=== PATIENT | female | born 1950 | race Caucasian/White ===

== ENCOUNTER 2019-05-19 07:35 | Outpatient (CLI) | payer MEDICARE, SELFPAY ==
[2019-05-19 08:11] LABS: Basophils Absolute Auto 0.1 K/mm3 (0.0-0.1); Basophils Percent Auto 0.7 % (0.2-1.2); Eosinophils Absolute Auto 0.3 K/mm3 (0-0.3); Eosinophils Percent Auto 3.8 % (0-4.4); Hematocrit 44.5 % (37.0-47.0); Immature Granulocyte Absolute 0.02 K/mm3 (0.00-0.031); Immature Granulocyte Percent A 0.2 % (0-0.5); Lymphocytes Percent Auto 17.1 % (18.3-44.2); Mean Corpuscular HGB Conc 31.5 g/dl (32-36); Mean Corpuscular Hemoglobin 26.8 pg (26-34); Mean Corpuscular Volume 85.2 fl (80-100); Mean Platelet Volume 9.8 fl (7.4-10.4); Monocytes Absolute Auto 0.5 K/mm3 (0.1-0.6); Monocytes Percent Auto 5.4 % (2.6-8.5); Neutrophils Absolute Auto 6.4 K/mm3 (1.3-6.7); Neutrophils Percent Auto 72.8 % (45.5-73.1); Platelet Count Result 212 k/mm3 (150-375); Red Blood Count 5.22 M/mm3 (4.2-5.4); White Blood Count 8.8 K/mm3 (4.5-10.0)
[2019-05-19 08:24] LABS: Alanine Aminotransferase 18 U/L (4-35); Albumin Level 4.5 g/dL (3.5-5.1); Alkaline Phosphatase 73 U/L (38-126); Aspartate Amino Transferase 25 U/L (14-36); Bilirubin,Total 0.7 mg/dL (0.2-1.3); Blood Urea Nitrogen 26 mg/dL (7-17); Calcium 9.4 mg/dL (8.4-10.2); Carbon Dioxide 28 mmol/L (22-30); Chloride 105 mmol/L (98-107); Cholesterol 156 mg/dL (0-200); Estimated Glomerular Filt Rate > 60; Glucose 89 mg/dL (65-105); HDL Direct 40 mg/dL; Potassium 5.3 mmol/L (3.4-5.0); Sodium 138 mmol/L (137-145); Triglycerides 81 mg/dL (<150)
[2019-05-19 08:35] LABS: LDL Cholesterol Direct 98 mg/dL
== END 2019-05-19 07:36 | disposition home or self-care (01) ==
LOC: ANHLAB 07:37
PROVIDERS: PCP Family Medicine; Visit Provider Nurse Practitioner Family
DX: E78.5 Hyperlipidemia, unspecified (principal); I10 Essential (primary) hypertension; E11.9 Type 2 diabetes mellitus without complications
CPT/HCPCS: 36415; 80053; 80061; 83036; 85025

== ENCOUNTER 2019-08-30 17:48 | Inpatient (IN) | payer MEDICARE, SELFPAY ==
[2019-08-30] VITALS (8 sets, daily range): BP systolic 95–112; BP diastolic 56–72; PULSE 120–152; RESP 18–27; TEMP 35.8–36.7; O2SAT 98–99; BMI 31.1
--- NOTE | ~2019-08-30 | CT_ITS ---
EXAMINATION: CT abdomen pelvis wo con DATE: 08/30/2019 18:35 INDICATION: Abdominal pain TECHNIQUE: Computed tomography (CT) of the abdomen and pelvis was performed without intravenous contr ast. Automated exposure control and iterative reconstruction technique were employed. The dose-length product was 1084.69 mGy-cm. COMPARISON: 07/06/2015 FINDINGS: Mild discoid atelectasis in the lingula and right middle and lower lobes. Heart size is normal. Ather osclerotic coronary artery calcifications. Aortic valve calcification. No pericardial or pleural effu johana. Cholecystectomy clips the gallbladder fossa. Liver and spleen are normal. There is haziness to the peripancreatic fat consistent with acute interstitial pancreatitis. 2.4 cm and 1.4 cm macroscopic fat attenuation myelolipoma is at the right adrenal gland. 1.9 cm low-attenuation left adrenal adeno ma. Large right renal staghorn calculus filling the renal pelvis and extending into a couple lower po le lucencies, one of which demonstrates mild caliectasis. There are a couple additional smaller stagh orn calculi within additional calyces at the mid and upper pole. 2.1 cm low-attenuation right renal c yst. 2.0 cm exophytic lesion at the lower pole of the right kidney measuring 25HU statistically most likely a complex proteinaceous cyst. There is mild colonic diverticulosis with a sigmoid predominance . There is no adjacent inflammatory change to suggest diverticulitis. Small gas-filled duodenal dive rticulum which appears to arise from near the junction of the second and third portions of duodenum. Small bowel is otherwise normal. Appendix is normal. Bladder, anteverted uterus and right adnexa are unremarkable. 7 mm left adnexal cyst. No free intraperitoneal gas or fluid. No pathologically enlarge d abdominal or pelvic lymphadenopathy. Moderate to severe lower lumbar predominant facet osteoarthrit is. There are bridging osteophytes at multiple levels in the lower thoracic spine, consistent with di ffuse idiopathic skeletal hyperostosis (DISH). IMPRESSION: 1. Radiographically uncomplicated acute interstitial pancreatitis. 2. 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 3. 2.0 cm exophytic lesion at the lower pole of the left kidney with slightly greater than simple flu id attenuation most likely proteinaceous/hemorrhagic cyst. Differential would include less likely tray id neoplasm and would recommend follow-up pre and postcontrast MRI or CT. Could also consider ultraso und although it would be a greater likelihood of nondiagnostic evaluation. 4. Diverticulosis. Reviewed, dictated and finalized at location A. IMPRESSION: 1. Radiographically uncomplicated acute interstitial pancreatitis. 2. Staghorn calculi in the right kidney with mild caliectasis and one of the lo wer pole calyces. 3. 2.0 cm exophytic lesion at the lower pole of the left kidney with slightly g reater than simple fluid attenuation most likely proteinaceous/hemorrhagic cyst . Differential would include less likely solid neoplasm and would recommend fol low-up pre and postcontrast MRI or CT. Could also consider ultrasound although it would be a greater likelihood of nondiagnostic evaluation. 4. Diverticulosis.
--- NOTE | ~2019-08-30 | MR_ITS ---
EXAMINATION: MR MRCP wo con/w 3D wo ind pp DATE: 08/31/2019 13:50 INDICATION: Pancreatitis. TECHNIQUE: Magnetic resonance imaging (MRI) of the abdomen was performed without intravenous contrast . Sequences included coronal T2-weighted FS FSE, coronal T2-weighted FSE, axial T1-weighted LAVA, cor onal FS FIESTA, axial dual-echo T1-weighted SPGR, coronal lava-FLEX, sagittal T2-weighted FSE, axial T2-weighted FSE, and axial DWI. Thick-slab T2-weighted FSE images were obtained for magnetic resonanc e cholangiopancreatography (MRCP). Maximum intensity projection 3-D reconstructions of the volumetric data were created by the technologist. COMPARISON: CT abdomen and pelvis 08/30/2019, 07/06/2015 FINDINGS: ABDOMEN MRI: There are small pleural effusions, left worse than right. The liver and spleen are jalen l. There are changes of cholecystectomy. There is edema around the pancreas, consistent with acute in terstitial pancreatitis. The right adrenal gland is normal. There is a 2.0 cm mass with microscopic f at in the left adrenal gland, consistent with an adenoma. There are cysts in the kidneys measuring up to 2.1 cm on the right. There is a staghorn calculus in right kidney with mild right hydronephrosis. There are no dilated loops of bowel. There are no pathologically enlarged lymph nodes. There is no f ree intraperitoneal fluid. There is a hemangioma in T12 vertebral body. ABDOMEN MRCP: The common duct is normal and measures 4 mm. No choledocholithiasis. There is a diverti culum of the second portion of the duodenum. IMPRESSION: 1. No choledocholithiasis. 2. Acute interstitial pancreatitis. 3. Staghorn calculus in right kidney with mild right hydronephrosis. 4. Small pleural effusions. Reviewed, dictated and finalized at location A.
--- NOTE | ~2019-08-30 | NM_ITS ---
EXAMINATION: NM pulmonary perfusion DATE: 08/30/2019 22:23 INDICATION: Chest pain and shortness of breath TECHNIQUE: 5.21 mCi Tc-99m MAA by intravenous route. Scintigraphic images of the chest were obtained . COMPARISON: Chest radiograph dated 08/30/2019 FINDINGS: There is relatively homogeneous perfusion throughout the lungs. No discrete ventilation and perfusio n mismatch is identified. IMPRESSION: 1. Normal pulmonary perfusion scan. Reviewed, dictated and finalized at location A.
--- NOTE | ~2019-08-30 | XR_ITS ---
EXAMINATION: XR chest 1V portable DATE: 08/30/2019 18:53 INDICATION: Hypertension. Abdominal pain. TECHNIQUE: frontal view of the chest was obtained. COMPARISON: CT abdomen and pelvis dated 08/30/2019 FINDINGS: Mild linear atelectasis/scarring at the lingula. No other airspace opacities, pulmonary edema, pleura l effusion or pneumothorax. The cardiomediastinal silhouette is normal. Visualized bones and soft tis sues are unremarkable. IMPRESSION: 1. Mild lingular atelectasis. No other acute cardiopulmonary disease. Reviewed, dictated and finalized at location A.
--- NOTE | ~2019-08-30 | US_ITS ---
EXAMINATION: US venous doppler [facility] DATE: 08/31/2019 17:27 INDICATION: Elevated d-dimer. Chest pain and shortness of breath. TECHNIQUE: Grayscale ultrasound images without and with compression and Doppler ultrasound images of the bilateral lower extremity veins were obtained. COMPARISON: None. FINDINGS: The visualized portions of right common femoral vein, profunda (deep) femoral vein, femoral vein, pop liteal vein, posterior tibial veins, peroneal veins, gastrocnemius vein and greater saphenous vein ou tflow are patent. Davis cyst at the right popliteal fossa measuring 5.8 x 0.9 x 1.9 cm. The visualized portions of left common femoral vein, profunda femoral vein, femoral vein, popliteal v ein, posterior tibial veins, peroneal veins, gastrocnemius vein and greater saphenous vein outflow ar e patent. Noncompressible thrombosis in the left soleus vein. IMPRESSION: 1. Noncompressible deep venous thrombosis below the left knee in the left soleus vein. 2. No deep venous thrombosis in the right lower limb. 3. Moderate-sized right Davis's cyst. Reviewed, dictated and finalized at location A. IMPRESSION: 1. Noncompressible deep venous thrombosis below the left knee in the left sole us vein. 2. No deep venous thrombosis in the right lower limb. 3. Moderate-sized right Davis's cyst.
--- NOTE | 2019-08-30 17:57 | ECG_ITS ---
Measurements Intervals [place] Rate: 152 P: MT: 0 QRS: -37 QRSD: 115 T: 143 QT: 325 QTc: 517 Interpretive Statements ATRIAL FLUTTER/TACHYCARDIA WITH RAPID VENTRICULAR RESPONSE LEFT AXIS DEVIATION INCOMPLETE RIGHT BUNDLE BRANCH BLOCK POOR R WAVE PROGRESSION, ANTERIOR LEADS BORDERLINE ST-T WAVE ABNORMALITY- LATERAL LEADS ABNORMAL ECG Electronically Signed On 08-31-2019 6:49:20 CDT by Abdias Colon D.O.
[2019-08-30] MEDS: SODIUM CHLORIDE 0.9% IV 1,000 ML 999 ML IV CONT ×2 (18:20→18:49)
[2019-08-30] MEDS: PANTOPRAZOLE SODIUM IV 40 MG VIAL IV PUSH (18:22)
[2019-08-30 18:47] LABS: Basophils Absolute Auto 0.1 K/mm3 (0.0-0.1); Basophils Percent Auto 0.2 % (0.2-1.2); Eosinophils Absolute Auto 0.3 K/mm3 (0-0.3); Eosinophils Percent Auto 1.4 % (0-4.4); Hematocrit 44.6 % (37.0-47.0); Hemoglobin 14.7 g/dL (12.0-15.0); Immature Granulocyte Absolute 0.16 K/mm3 (0.00-0.031); Immature Granulocyte Percent A 0.7 % (0-0.5); Lymphocytes Percent Auto 3.9 % (18.3-44.2); Mean Corpuscular Hemoglobin 27.3 pg (26-34); Mean Corpuscular Volume 82.7 fl (80-100); Mean Platelet Volume 10.7 fl (7.4-10.4); Monocytes Absolute Auto 1.2 K/mm3 (0.1-0.6); Monocytes Percent Auto 5.2 % (2.6-8.5); Neutrophils Absolute Auto 20.3 K/mm3 (1.3-6.7); Neutrophils Percent Auto 88.6 % (45.5-73.1); Platelet Count Result 271 k/mm3 (150-375); Red Blood Count 5.39 M/mm3 (4.2-5.4); Red Cell Distribution Width 15.9 % (11.5-14.5); White Blood Count 22.9 K/mm3 (4.5-10.0)
--- NOTE | 2019-08-30 18:48 | ED.ABDPAIN ---
HPI - Abdominal Pain General Chief Complaint: Abdominal Pain <Alfred Domínguez PA-C - Last Filed: 08/30/19 20:51> Stated Complaint: N/V/D <RONEY Jacobo Last Filed: 08/30/19 20:51> Time Seen by Provider: 08/30/19 17:56 <RONEY Jacobo Last Filed: 08/30/19 20:51> Source: patient <RONEY Jacobo Last Filed: 08/30/19 20:51> Mode of arrival: ambulatory <RONEY Jacobo Last Filed: 08/30/19 20:51> Limitations: no limitations <RONEY Jacobo Last Filed: 08/30/19 20:51> History of Present Illness HPI narrative: Patient is a 68-year-old female who presents to emergency department for evaluation of fatigue and weakness that is worsened since the weekend patient over the weekend had diarrhea and vomiting multiple episodes. Patient notes after the weekend though symptoms resolved but continues to have some intermittent nausea fatigue weakness as well as some skin discoloration patient <RONEY Jacobo Last Filed: 08/30/19 20:51> Related Data Home Medications: Home Medications Medication Instructions Recorded Confirmed ascorbic acid (vitamin C) 1,000 mg 1 gm PO DAILY 05/25/19 08/30/19 tablet ferrous sulfate 325 mg (65 mg 325 mg PO .QOD tablet 05/25/19 08/30/19 iron) tablet glucosamine HCl 1,500 mg tablet 1,500 mg PO BID tablet 05/25/19 08/30/19 docusate sodium 100 mg capsule 100 mg PO DAILY 08/28/19 08/30/19 sitagliptin [Januvia] 100 mg PO DAILY 08/30/19 08/30/19 <RONEY Jacobo Last Filed: 08/30/19 20:51> Allergies/Adverse Reactions: Allergies Allergy/AdvReac Type Severity Reaction Status Date / Time clindamycin Allergy Unknown Verified 02/02/17 09:49 Iodinated Contrast Media Allergy Unknown Verified 02/02/17 09:49 Penicillins Allergy Unknown Verified 02/02/17 09:50 Contrast Media Allergy Unknown SWELLING Uncoded 02/17/17 15:00 AND ITCHING OPTICELL Allergy Unknown SWELLING Uncoded 05/22/15 10:06 <Alfred DomínguezRONEY - Last Filed: 08/30/19 20:51> Review of Systems Review of Systems: All systems reviewed & are unremarkable except as noted in HPI and below <Alfred DomínguezRONEY Last Filed: 08/30/19 20:51> PMFSH Past Medical History Medical History: Medical History Hidradenitis Hyperlipidemia Hypertension JACKELIN (iron deficiency anemia) Type 2 diabetes mellitus without complications <Alfred DomínguezRONEY Last Filed: 08/30/19 20:51> Surgical History Surgical History: Surgical History History of section History of cholecystectomy (~07/2014) History of tonsillectomy <Alfred Regis SangRONEY Last Filed: 08/30/19 20:51> Family History Family History: Family History Mother Hypertension Father Diabetes mellitus Family history of diabetes mellitus in first degree relative Sibling Kidney disease Multiple sclerosis <Alfred Regis SangRONEY Last Filed: 08/30/19 20:51> Social History Social History: Social History Smoking status: Never smoker Second hand tobacco smoke exposure: No Alcohol intake: never <Alfred Stacy SangRONEY Last Filed: 08/30/19 20:51> Exam Narrative: Exam Narrative: GENERAL: Ill-appearing, well-nourished, and in no acute distress. HEAD: Normocephalic, atraumatic. EYES: PERRLA and EOMI. sclerae icterus ENT: Nares clear, no rhinorrhea or epistaxis. Mucous membranes moist. Oropharynx without tonsillar hypertrophy exudate or other lesions. NECK: Supple. No adenopathy or masses. CHEST: Clear to auscultation. No respiratory distress. No wheezes rales or rhonchi HEART: Regular rate and rhythm. No murmur heard. Normal peripheral pulses. ABDOMEN: Soft, nontender, nondistended EXTREMITIES: Normal range
[2019-08-30 18:55] LABS: Alanine Aminotransferase 108 U/L (4-35); Albumin Level 3.9 g/dL (3.5-5.1); Alkaline Phosphatase 345 U/L (38-126); Aspartate Amino Transferase 68 U/L (14-36); Bilirubin,Total 9.5 mg/dL (0.2-1.3); Blood Urea Nitrogen 42 mg/dL (7-17); Calcium 8.3 mg/dL (8.4-10.2); Carbon Dioxide 26 mmol/L (22-30); Chloride 93 mmol/L (98-107); Estimated CRCL calculation 36 ml/min; Estimated Glomerular Filt Rate 34; Glucose 120 mg/dL (65-105); Lipase 516 U/L (23-300); Potassium 3.5 mmol/L (3.4-5.0); Sodium 130 mmol/L (137-145)
[2019-08-30 18:56] LABS: INR 1.1; Prothrombin Time 14.2 Seconds (11.1-14.7)
[2019-08-30 18:57] LABS: Partial Thromboplastin Time 27.8 SECONDS (22.3-36.8)
[2019-08-30 19:10] LABS: Troponin I 0.061 ng/mL (0.000-0.034)
[2019-08-30 19:48] LABS: Ammonia < 9 umol/L (9-30)
[2019-08-30] MEDS: ERTAPENEM 1 GM/NS 50 ML 1 GM/50 ML BAG IVPB (19:54)
[2019-08-30 21:02] LABS: Add Urine Microscopic? YES; Amorphous Sediment Urine Few; Appearance Urine Cloudy (Clear); Bacteria Urine Trace /hpf; Bilirubin Urine Negative (Negative); Blood Urine 1+ (Negative); Color Urine Yellow (Yellow); Glucose Urine UA Negative (Negative); Ketones Urine Negative (Negative); Leukocyte Esterase Ur Negative LEU/UL (Negative); Mucus Urine Rare /lpf; Nitrate Urine Negative (Negative); Protein Urine Negative (Negative); Specific Grav Ur 1.008 (1.001-1.035); Squamous Epithelial Cell Urine Occasional /hpf (Few); Urobilinogen Urine Negative mg/dL (<2.0); WBC Urine 0-3 /hpf
[2019-08-30] MEDS: LACTATED RINGERS 1,000 ML 125 ML IV CONT (21:08)
--- NOTE | 2019-08-30 21:29 | PC.NURSE ---
This patient, Trayc Krueger, was admitted to Intensive Care Unit-11 on 08/30/2019 at 2105. Patient/family oriented to hospital policies and general routines including ID bracelet, bed and alarms, visiting hours, pain management, procedures, bathroom and other care routines, personal items, smoking policy, room service/diet, and visiting hours. Valuables list has been completed. Information on how to activate the Rapid Response Team has been discussed. Patient/Family are encouraged to report perceived risks to care and to ask questions if they do not understand what they are told or what they should do.
--- NOTE | 2019-08-30 21:49 | PM.IMHP ---
H&P: HPI History of Present Illness Chief complaint: Pancreatitis, sepsis Narrative: This is a pleasant 68 year old diabetic female with known HTN who presented to the hospital with a complaint of diffuse abdominal pain, fatigue, and jaundice. She initially started to experience nausea and vomiting this past Tuesday evening which progressed and she began to have diffuse abdominal pain that radiated towards her back. Her abdominal pain doesn't seem to worsen with food intake. She denies any fevers, cough, shortness of breath or chest pain. Her last meal was lunch today. Her daughter who is a nurse noticed that she appeared to look yellowish in color and urged her to come to the hospital for evaluation. She was found to have elevated liver enzymes and acute pancreatitis on CT abd/pelvis. She has no previous history of acute pancreatitis. She denies any history of alcoholism and has had a previous cholecystectomy. She did recently see her PCP this past week and was started on Macrobid for a presumed UTI although she had no urinary symptoms. Review of Systems Review of Systems: All systems reviewed & are unremarkable except as noted in HPI and below PMFSH Past Medical History Medical History Hidradenitis Hyperlipidemia Hypertension JACKELIN (iron deficiency anemia) Type 2 diabetes mellitus without complications Surgical History Surgical History History of section History of cholecystectomy (~07/2014) History of tonsillectomy Family History Family History Mother Hypertension Father Diabetes mellitus Family history of diabetes mellitus in first degree relative Sibling Kidney disease Multiple sclerosis Social History Social History Smoking status: Never smoker Second hand tobacco smoke exposure: No Alcohol intake: never Substance use: never Substance use type: does not use Spiritual care concerns: No Meds Home Medications and Allergies Home Medications Medication Instructions Recorded Confirmed Type atorvastatin 10 mg tablet 10 mg PO DAILY #90 tablet 04/26/19 08/30/19 Rx blood sugar diagnostic #100 each 04/26/19 08/30/19 Rx blood-glucose meter #1 each 04/26/19 08/30/19 Rx ascorbic acid (vitamin C) 1,000 mg 1 gm PO DAILY 05/25/19 08/30/19 History tablet ferrous sulfate 325 mg (65 mg 325 mg PO .QOD tablet 05/25/19 08/30/19 History iron) tablet glucosamine HCl 1,500 mg tablet 1,500 mg PO BID tablet 05/25/19 08/30/19 History quinapril 40 mg tablet 40 mg PO DAILY #90 tablet 05/25/19 08/30/19 Rx docusate sodium 100 mg capsule 100 mg PO DAILY 08/28/19 08/30/19 History nitrofurantoin 100 mg PO Q12H 7 Days #14 cap 08/28/19 08/30/19 Rx monohydrate/macrocrystals 100 mg capsule sitagliptin [Januvia] 100 mg PO DAILY 08/30/19 08/30/19 History Allergies Allergy/AdvReac Type Severity Reaction Status Date / Time clindamycin Allergy Unknown Verified 02/02/17 09:49 Iodinated Contrast Media Allergy Unknown Verified 02/02/17 09:49 Penicillins Allergy Unknown Verified 02/02/17 09:50 Contrast Media Allergy Unknown SWELLING Uncoded 02/17/17 15:00 AND ITCHING OPTICELL Allergy Unknown SWELLING Uncoded 05/22/15 10:06 Vital Signs Vital Signs - 24 hr 08/30/19 17:53 08/30/19 19:00 08/30/19 19:48 Temperature 36.7 C Pulse Rate 152 H 145 H 143 H Respiratory Rate 20 20 18 Blood Pressure 112/71 95/64 L 104/70 Pulse Oximetry 99 98 99 08/30/19 21:14 Temperature Pulse Rate 120 H Respiratory Rate 20 Blood Pressure 102/68 Pulse Oximetry 99 Exam Const: General: cooperative, no acute distress, alert and awake Nutritional Appearance: obese Orientation/consciousness: patient oriented x3 HENMT: Head: normal to inspection General nose exam: Normal external nos
[2019-08-30 22:10] LABS: Lactic Acid Reflex 1.1 mmol/L (0.7-2.1)
[2019-08-30 22:29] LABS: Troponin I 0.052 ng/mL (0.000-0.034)
[2019-08-30 23:24] LABS: Glucose Point of Care 68 (65-105)
[2019-08-30] MEDS: DEXTROSE 50% 25 GM/50 ML SYRINGE IV PUSH (23:26)
[2019-08-31] VITALS (11 sets, daily range): BP systolic 84–121; BP diastolic 50–78; PULSE 72–98; RESP 14–26; TEMP 36.1–36.7; O2SAT 96–99
[2019-08-31 00:08] LABS: Glucose Point of Care 102 (65-105)
[2019-08-31 01:52] LABS: Glucose Point of Care 84 (65-105)
[2019-08-31 02:40] LABS: Troponin I 0.052 ng/mL (0.000-0.034)
[2019-08-31 04:35] LABS: Glucose Point of Care 65 (65-105)
[2019-08-31] MEDS: DEXTROSE 5%/0.9% SOD CHL 1,000 ML 120 ML IV CONT ×2 (04:45→17:48)
[2019-08-31 04:51] LABS: Basophils Percent Auto 0.2 % (0.2-1.2); Eosinophils Absolute Auto 0.2 K/mm3 (0-0.3); Hematocrit 37.6 % (37.0-47.0); Hemoglobin 12.1 g/dL (12.0-15.0); Immature Granulocyte Absolute 0.07 K/mm3 (0.00-0.031); Immature Granulocyte Percent A 0.6 % (0-0.5); Lymphocytes Absolute Auto 0.41 K/mm3 (0.9-3.2); Lymphocytes Percent Auto 3.4 % (18.3-44.2); Mean Corpuscular HGB Conc 32.2 g/dl (32-36); Mean Corpuscular Hemoglobin 27.4 pg (26-34); Mean Corpuscular Volume 85.1 fl (80-100); Mean Platelet Volume 10.8 fl (7.4-10.4); Monocytes Absolute Auto 0.7 K/mm3 (0.1-0.6); Monocytes Percent Auto 5.7 % (2.6-8.5); Neutrophils Absolute Auto 10.6 K/mm3 (1.3-6.7); Neutrophils Percent Auto 88.1 % (45.5-73.1); Platelet Count Result 158 k/mm3 (150-375); Red Blood Count 4.42 M/mm3 (4.2-5.4); Red Cell Distribution Width 15.7 % (11.5-14.5)
[2019-08-31 05:14] LABS: Alanine Aminotransferase 69 U/L (4-35); Albumin Level 2.7 g/dL (3.5-5.1); Alkaline Phosphatase 216 U/L (38-126); Aspartate Amino Transferase 47 U/L (14-36); Bilirubin,Total 5.6 mg/dL (0.2-1.3); Blood Urea Nitrogen 30 mg/dL (7-17); Calcium 7.5 mg/dL (8.4-10.2); Carbon Dioxide 24 mmol/L (22-30); Chloride 106 mmol/L (98-107); Estimated CRCL calculation 48 ml/min; Estimated Glomerular Filt Rate 49; Glucose 69 mg/dL (65-105); Lipase 421 U/L (23-300); Potassium 3.4 mmol/L (3.4-5.0); Sodium 136 mmol/L (137-145)
[2019-08-31 05:35] LABS: Glucose Point of Care 72 (65-105)
[2019-08-31 06:37] LABS: Cholesterol 108 mg/dL (0-200); HDL Direct 10 mg/dL; Triglycerides 124 mg/dL (<150)
[2019-08-31 06:48] LABS: LDL Cholesterol Direct 56 mg/dL
--- NOTE | 2019-08-31 07:55 | PM.CNCAR ---
Assessment and Plan Assessment and plan (1) Atrial flutter with rapid ventricular response: Code(s): I48.92 - Unspecified atrial flutter Status: Acute Assessment and Plan: 68 y/o female with no prior cardiac history however cardiovascular risk factors of HTN, DM and HLD who presented with acute panceratitis, hyperbilirubinemia and A flutter Patient has A flutter with RVR in the setting of underlying SIRS/inflammation from acute pancreatitis She has converted to normal sinus rhythm after received IV fluids Will check 2D echo to rule out structural heart disease Will start low dose Metoprolol for rate control if she is to go in A flutter again in the future CHADsVASC score is 4 given her risk of stroke ~5% per year. She would benefit from AC but would hold off starting that at this point as she may need further GI work up/procedures for underlying panceratitis, hyperbilirubinemia. Will start ASA for now She has indeterminate trop elevation that peaked at 0.06 with no chest pain or EKG changes. This is likely due to increased demand from A flutter and SIRS. She should have acceptable risk to undergo and GI procedures if needed. She would benefit from ischemic evaluation at somepoint for risk stratification but that can be done in outpatient settings once she recovers from pancreatitis (2) Elevated troponin: Code(s): R79.89 - Other specified abnormal findings of blood chemistry Status: Acute Assessment and Plan: very mild indeterminate trop elevation at 0.06 in the setting of tachycardia and SIRS. No Chest pain. No injury or ischemia on EKG. Will follow 2D echo Will plan outpatient ischemic evaluation. okay to proceed with GI procedures if needed (3) Acute pancreatitis: Qualifiers: Acute pancreatitis complication: unspecified Pancreatitis type: idiopathic Qualified Code(s): K85.00 - Idiopathic acute pancreatitis without necrosis or infection Code(s): K85.90 - Acute pancreatitis without necrosis or infection, unspecified Status: Acute Assessment and Plan: Management per primary team (4) Hypertension: Qualifiers: Hypertension type: essential hypertension Qualified Code(s): I10 - Essential (primary) hypertension Code(s): I10 - Essential (primary) hypertension Status: Chronic Assessment and Plan: Well controlled. 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 Okay to hold statin for now. LDL is 56 History of Present Illness History of Present Illness Consult date/time: 08/31/19 07:55 68 y/o female with h/o HTN, DM, HLD who presented with jaundice and abdominal pain. Patient reports nausea and fatigue since last weekend with abdominal pain. She was noted by family member to look yellow and was encouraged to seek medical attention. In ER her work up revealed elevated lipase consistent with pancreatitis. She was also noted to be tachycardic and her EKG showed A flutter at 150. She denies chest pain or palpitations. She never had cardiac issues, neither any cardiac work up except for routine EKGs at PCP office. Her troponin was very mildly elevated at 0.06 and trended down to 0.05. EKG on admission showed Atrial flutter at HR 150. She spontaneously converted to normal sinus rhythm without receiving any rate or rhythm control medications Never smoker. Reason For Visit: Pancreati
--- NOTE | 2019-08-31 08:09 | WPDGICN ---
Assessment and Plan Assessment and plan (1) Acute pancreatitis: Qualifiers: Acute pancreatitis complication: unspecified Pancreatitis type: idiopathic Qualified Code(s): K85.00 - Idiopathic acute pancreatitis without necrosis or infection Code(s): K85.90 - Acute pancreatitis without necrosis or infection, unspecified Status: Acute Assessment and Plan: Acute pancreatitis identified by CT scan. Elevated lipase noted in the emergency room to 550. This appears to account for elevated LFTs and elevated white count etiology remains unclear she has a distant history of cholecystectomy she denies any alcohol intake. Plan is to evaluate with MRCP conservative supportive care in the interim in slow reintroduction of low-fat diet. We will continue monitor with you. (2) Type 2 diabetes mellitus without complications: Qualifiers: Diabetes mellitus meterman insulin use: without correction use Qualified Code(s): E11.9 - Type 2 diabetes mellitus without complications Code(s): E11.9 - Type 2 diabetes mellitus without complications Status: Chronic (3) Hypertension: Qualifiers: Hypertension type: essential hypertension Qualified Code(s): I10 - Essential (primary) hypertension Code(s): I10 - Essential (primary) hypertension Status: Chronic (4) Elevated LFTs: Code(s): R79.89 - Other specified abnormal findings of blood chemistry Status: Acute GI Consult Note Consult date/time: 08/31/19 08:09 HPI: Tracy Krueger is a 68 year old female Seen in evaluation at the request of the emergency room. Patient has an underlying history of hypertension and diabetes. Distant history of cholecystectomy. She reports 1 week ago began to have nausea vomiting abdominal discomfort. She presented to her primary care service was treated for urinary tract infection. An MRCP apparently was ordered for on certain findings. Throughout the week her symptoms persisted and it was notice that she became jaundice with yellow eyes. Last evening she presented to the emergency room. A CT scan suggest pancreatitis. Marked elevation of LFTs were identified. Patient's family history is noncontributory. She reports having had a cholecystectomy many years ago. Patient no longer has any nausea vomiting. She does report some back pain which has begun to resolve. Review of Systems Review of Systems: All systems reviewed & are unremarkable except as noted in HPI and below PMFSH Past Medical History Medical History Hidradenitis Hyperlipidemia Hypertension JACKELIN (iron deficiency anemia) Type 2 diabetes mellitus without complications Surgical History Surgical History History of section History of cholecystectomy (~07/2014) History of tonsillectomy Family History Family History Mother Hypertension Father Diabetes mellitus Family history of diabetes mellitus in first degree relative Sibling Kidney disease Multiple sclerosis Social History Social History Smoking status: Never smoker Second hand tobacco smoke exposure: No Alcohol intake: never Substance use: never Substance use type: does not use Spiritual care concerns: No Meds Home Medications and Allergies Home Medications Medication Instructions Recorded Confirmed Type atorvastatin 10 mg tablet 10 mg PO DAILY #90 tablet 04/26/19 08/30/19 Rx blood sugar diagnostic #100 each 04/26/19 08/30/19 Rx blood-glucose meter #1 each 04/26/19 08/30/19 Rx ascorbic acid (vitamin C) 1,000 mg 1 gm PO DAILY 05/25/19 08/30/19 History tablet ferrous sulfate 325 mg (65 mg 325 mg PO .QOD tablet 05/25/19 08/30/19 History iron) tablet glucosamine HCl 1,500 mg tablet 1,500 mg PO BID tablet 0
--- NOTE | 2019-08-31 08:26 | ED.ABDPAIN ---
HPI - Abdominal Pain General Chief Complaint: Abdominal Pain Stated Complaint: N/V/D Time Seen by Provider: 08/30/19 17:56 Source: patient Mode of arrival: ambulatory Limitations: no limitations History of Present Illness HPI narrative: Patient is a 68-year-old female who presents for evaluation of jaundice and abdominal pain. Patient reportedly recently diagnosed with urinary tract infection, but continues to have abdominal pain mostly in the right upper quadrant, at times sharp in nature, other times dull. She has had nausea and numerous episodes of vomiting that is nonbloody and nonbilious. Patient denies fever or chills, no cough or shortness of breath. No chest pain. No back pain. Patient's daughter is a surgical nurse, states that she is noticed her mother has had increasing jaundice over the past couple of days. Patient has no history of cancer per daughter. No recent travel. Related Data Home Medications Medication Instructions Recorded Confirmed ascorbic acid (vitamin C) 1,000 mg 1 gm PO DAILY 05/25/19 08/30/19 tablet ferrous sulfate 325 mg (65 mg 325 mg PO .QOD tablet 05/25/19 08/30/19 iron) tablet glucosamine HCl 1,500 mg tablet 1,500 mg PO BID tablet 05/25/19 08/30/19 docusate sodium 100 mg capsule 100 mg PO DAILY 08/28/19 08/30/19 Januvia 100 mg PO DAILY 08/30/19 08/30/19 Allergies Allergy/AdvReac Type Severity Reaction Status Date / Time clindamycin Allergy Unknown Verified 02/02/17 09:49 Iodinated Contrast Media Allergy Unknown Verified 02/02/17 09:49 Penicillins Allergy Unknown Verified 02/02/17 09:50 Contrast Media Allergy Unknown SWELLING Uncoded 02/17/17 15:00 AND ITCHING OPTICELL Allergy Unknown SWELLING Uncoded 05/22/15 10:06 Review of Systems Review of Systems: Narrative: CONSTITUTIONAL: Denies fever, chills, or sweats. ENT: Denies rhinorrhea, congestion, sore throat, or otalgia. CARDIOVASCULAR: Denies chest pain, palpitations, or edema. RESPIRATORY: Denies cough or dyspnea. GASTROINTESTINAL: Reports abdominal pain, nausea, vomiting GENITOURINARY: Denies dysuria or hematuria currently, reports urine has been dark. SKIN: Denies rash or itching. MUSCULOSKELETAL: Denies back pain, joint pain, or myalgia. NEUROLOGIC: Denies headache, numbness, or weakness. FOR[facility]LY [facility] Past Medical History Medical History Hidradenitis Hyperlipidemia Hypertension JACKELIN (iron deficiency anemia) Type 2 diabetes mellitus without complications Surgical History Surgical History History of section History of cholecystectomy (~07/2014) History of tonsillectomy Family History Family History Mother Hypertension Father Diabetes mellitus Family history of diabetes mellitus in first degree relative Sibling Kidney disease Multiple sclerosis Social History Social History Smoking status: Never smoker Second hand tobacco smoke exposure: No Alcohol intake: never Substance use: never Substance use type: does not use Spiritual care concerns: No Exam Narrative: Exam Narrative: GENERAL: Awake, alert, conversant, jaundiced HEAD: Normocephalic, atraumatic. EYES: PERRLA and EOMI. positive scleral icterus bilaterally ENT: Nares clear, no rhinorrhea or epistaxis. Mucous membranes dry NECK: Supple. CHEST: No respiratory distress, breathing even and non labored HEART: Regular rate, sinus rhythm ABDOMEN:Non distended, tender in the right upper quadrant without guarding or rebound EXTREMITIES: Normal range of motion. No edema. SKIN: Warm, dry, no rash. NEURO:No focal deficits. Alert and oriented x3 Course Vital Signs Vital signs: Vital Signs Temperature 36.7 C 08/30/19 17:53 Pulse Rate 152 H 08/30/19 17:53 Respiratory Rate 20 08/30/19 17:53 Blood Pressure 112
--- NOTE | 2019-08-31 08:33 | ECHO_ITS ---
Patient Info Name: Tracy Krueger Age: 68 years : 1950 Gender: Female Ht: 66 in Wt: 193 lbs BSA: 2.05 m2 HR: 89 bpm BP: 110 / 61 mmHg Technical Quality: Fair Exam Date: 08/31/2019 9:49 AM Exam Location: [facility] Pulmonary Patient Status: Inpatient Admit Date: 08/30/2019 Staff Ordering Physician: Hannah Nunes MD (vadim) Music Engineer: Ngoc Alvarado RDCS Attending Provider: Willie Ricardo MD Exam Type: CA echo doppler color flow Study Info Indications - ATRIAL FLUTTER Complete two-dimensional, color flow and Doppler transthoracic echocardiogram is performed. Summary 1. Left ventricular systolic function is normal, estimated at 60-65%. 2. Left ventricular chamber dimension is normal. 3. Left atrial chamber dimension is moderately enlarged. 4. Mild pulmonary hypertension, estimated pulmonary arterial systolic pressure is 42 mmHg. 5. There is mild tricuspid valve regurgitation. Left Ventricle Left ventricular chamber dimension is normal. Left ventricular systolic function is normal, estimated at 60-65%. There is no increased left ventricular wall thickness. Left ventricular septal wall motion is normal. The left ventricular diastolic function is normal. Right Ventricle Right ventricular chamber dimension is normal. Right ventricular systolic function is normal. Left Atria Left atrial chamber dimension is moderately enlarged. Right Atria Right atrial chamber dimension is normal. Aortic Valve The aortic valve is trileaflet. There is no aortic valve sclerosis. There is no aortic valve stenosis. There is no aortic valve regurgitation. Pulmonic Valve The pulmonic valve is normal. There is no pulmonic valve stenosis. There is no pulmonic regurgitation. Mitral Valve The mitral valve has normal leaflets. There is no mitral valve stenosis. There is no mitral valve regurgitation. Tricuspid Valve The tricuspid valve leaflets are normal. There is no significant tricuspid valve stenosis. There is mild tricuspid valve regurgitation. Mild pulmonary hypertension, estimated pulmonary arterial systolic pressure is 42 mmHg. Pericardium/Pleural The pericardium appears normal. There is no pericardial effusion. Inferior Vena Cava Normal inferior vena cava with >50% collapse upon inspiration consistent with normal right atrial pressure, 10 mmHg. Aorta The aortic root size at the sinus of Valsalva is normal. The prox ascending aorta size is normal. Left Ventricular Outflow Tract Name Value Normal LVOT 2D LVOT Diameter 2.2 cm LVOT Doppler LVOT Peak Gradient 4 mmHg LVOT Mean Gradient 2 mmHg LVOT VTI 21 cm LVOT VTI/AV VTI Ratio 0.6 LVOT Stroke Volume 77 ml LVOT CO 7.1 l/min LVOT CI 3.5 l/min/m2 Pulmonic Valve Name Value Normal ---------
[2019-08-31 08:55] LABS: Glucose Point of Care 94 (65-105)
[2019-08-31 09:41] LABS: Bilirubin Direct 2.2 mg/dL (0-0.3); Bilirubin Indirect 1.3 mg/dL (0-1.1); Bilirubin,Total 5.2 mg/dL (0.2-1.3)
[2019-08-31] MEDS: ASPIRIN 81 MG CHEWABLE TABLET PO (09:41)
[2019-08-31] MEDS: MAGNESIUM SULF 2 GM/WATER 50ML 2 GM/50 ML BAG IVPB (09:41)
[2019-08-31 10:31] LABS: Hepatitis B Surface Antigen Negative (Negative)
[2019-08-31 10:37] LABS: HAV RESULT Negative (Negative); Hepatitis B Core IgM Result Negative (Negative)
[2019-08-31 10:48] LABS: Hepatitis C Virus Antibody Negative (Negative)
[2019-08-31 11:42] LABS: Glucose Point of Care 95 (65-105)
--- NOTE | 2019-08-31 12:47 | WPDCNINT ---
Assessment and Plan Assessment and plan (1) Acute pancreatitis: Qualifiers: Acute pancreatitis complication: unspecified Pancreatitis type: idiopathic Qualified Code(s): K85.00 - Idiopathic acute pancreatitis without necrosis or infection Code(s): K85.90 - Acute pancreatitis without necrosis or infection, unspecified Status: Acute Assessment and Plan: Acute pancreatitis, unknown source/mechanism at this time -patient has had cholecystectomy, triglycerides of normal and patient does not drink alcohol -appreciate GI evaluation -lipase levels trending down, -plan to perform MRCP -continue supportive care with IV fluids and pain control if required (2) Severe sepsis: Code(s): A41.9 - Sepsis, unspecified organism; R65.20 - Severe sepsis without septic shock Status: Acute Assessment and Plan: Patient presented with elevated lactic acid, tachycardia, tachypnea, pancreatitis, hypotension -lactic acid has normalized, tachycardia AFib RVR, converted to sinus rhythm, rate controlled. -hypotension resolved with IV fluids -continue to monitor (3) Acute kidney injury: Code(s): N17.9 - Acute kidney failure, unspecified Status: Acute Assessment and Plan: Acute kidney injury likely related to hypovolemia secondary to nausea, vomiting for about 1 week with decreased p.o. intake for solids and liquids -patient adequately fluid-resuscitated, creatinine down to 1.10 from 1.50 on admission -continue IV fluids -monitor urine output, renal function electrolytes (4) Transaminitis: Code(s): R74.0 - Nonspecific elevation of levels of transaminase and lactic acid dehydrogenase [LDH] Status: Acute Assessment and Plan: Elevated LFTs trending down -unknown cause at this time, MRCP has been ordered (5) Hyperbilirubinemia: Code(s): E80.6 - Other disorders of bilirubin metabolism Status: Acute Assessment and Plan: Elevated direct and indirect bilirubin GI has been following the patient, MRCP has been ordered -will have more answers once MRCP is reported (6) Atrial flutter with rapid ventricular response: Code(s): I48.92 - Unspecified atrial flutter Status: Acute Assessment and Plan: Patient with atrial fibrillation, flutter with no prior cardiac history. Could be related to severe sepsis, acute pancreatitis. -patient converted to normal sinus rhythm with rate control after IV fluids and pain control -cardiology was consulted and appreciate them evaluating the patient -2D echocardiogram has been ordered. (7) Elevated d-dimer: Code(s): R79.89 - Other specified abnormal findings of blood chemistry Status: Acute Assessment and Plan: Patient with elevated D-dimer, V/Q scan was ordered which was essentially normal -D-dimer is an acute phase reactant and could be elevated secondary to acute pancreatitis and severe sepsis (8) Elevated troponin: Code(s): R79.89 - Other specified abnormal findings of blood chemistry Status: Acute Assessment and Plan: Small elevation of troponin could be related to AFib RVR, severe sepsis -EKG does not show any ischemic changes or injury pattern. -for follow 2D echo, will require outpatient ischemic evaluation. (9) Type 2 diabetes mellitus without complications: Qualifiers: Diabetes mellitus jail insulin use: without jail use Qualified Code(s): E11.9 - Type 2 diabetes mellitus without complications Code(s): E11.9 - Type 2 diabetes mellitus without complications Status: Chronic Assessment and Plan: Accu-Cheks and sliding scale insulin (10) DVT prophylaxis: Code(s): Z29.9 - Encounter for prophylactic measures, unspecified Status: Acute Assessment and Plan: Will add Lovenox Additional Plan Discussed with patient and her daughter who was a nurse in the surgery department at [facility] and updated both of them w
--- NOTE | 2019-08-31 13:00 | PC.NURSE ---
Received patient from ICU via wheelchair with ICU staff. Patient settled in room. Denies pain or distress. Oriented to room and unit.
--- NOTE | 2019-08-31 13:53 | PC.NURSE ---
Patient downgraded to medical status. Room 347 assigned. Report given to Veronica MCGARRY. Patient and all belongings transported via wheelchair with minimal assist @1345. Fluids up and running.
[2019-08-31] MEDS: ENOXAPARIN 40 MG/0.4 ML SYRINGE SUB-Q (15:04)
--- NOTE | 2019-08-31 16:10 | PM.IMPN ---
Progress Note: A&P Assessment and Plan (1) Acute pancreatitis: Qualifiers: Acute pancreatitis complication: unspecified Pancreatitis type: idiopathic Qualified Code(s): K85.00 - Idiopathic acute pancreatitis without necrosis or infection Code(s): K85.90 - Acute pancreatitis without necrosis or infection, unspecified Status: Acute Assessment and Plan: NPO, bowel rest, Continue IV hydration, Pain control w/ IV narcotics. Hold statin therapy as this is known to cause acute pancreatitis. Check lipid panel. 08/31/19 16:10 Patient is 68-year-old female with no significant abdomen history presented to the emergency department with complaint of fatigue being tired 3-4 days prior to coming emergency depart patient had few episodes of nausea, vomiting and diarrhea, patient family noticed patient appeared more jaundiced was brought to the emergency department for further evaluation, patient had a CT scan of abdomen which showed interstitial pancreatitis and and blood work showed elevated bilirubin, patient acute hepatitis panel is negative, patient was seen by GI to further evaluate patient had MRCP which did not show choledocholithiasis rather showed acute interstitial pancreatitis patient is clinically stable denies any abdominal pain nausea or vomiting patient currently NPO patient also had an episode of atrial flutter with RVR patient is seen by mineral engineer and suspected most likely triggered by stress from acute interstitial pancreatitis patient was started on IV fluid and emergency depart patient did converted back to sinus rhythm and currently the rate is controlled patient is a on low-dose of beta-dino to prevent any future will fibrillation patient CHADsVASC score is 4 will require anticoagulation once patient GI symptoms have resolved, currently patient is feeling much better compared to when she arrived, will continue to monitor patient will be seen by GI and mineral engineer (2) Severe sepsis: Code(s): A41.9 - Sepsis, unspecified organism; R65.20 - Severe sepsis without septic shock Status: Acute Assessment and Plan: w/ tachycardia, leukocytosis, tachypnea, fever. Source of sepsis is likely acute pancreatitis. Continue IV carbapenem that the patient tolerated well in the ER tonight. blood cultures pending. (3) Acute kidney injury: Code(s): N17.9 - Acute kidney failure, unspecified Status: Acute Assessment and Plan: Continue IV fluid challenge. Monitor urine output and renal function. Avoid nephrotoxic agents, renally dose medications. (4) Transaminitis: Code(s): R74.0 - Nonspecific elevation of levels of transaminase and lactic acid dehydrogenase [LDH] Status: Acute Assessment and Plan: Cholestatic pattern of transaminitis. GI has been consulted. Likely will need MRCP today. (5) Hyperbilirubinemia: Code(s): E80.6 - Other disorders of bilirubin metabolism Status: Acute Assessment and Plan: Trend bilirubin. (6) Type 2 diabetes mellitus without complications: Qualifiers: Diabetes mellitus exterminator helper termite insulin use: without exterminator helper termite use Qualified Code(s): E11.9 - Type 2 diabetes mellitus without complications Code(s): E11.9 - Type 2 diabetes mellitus without complications Status: Chronic Assessment and Plan: Accuchecks, SSI Coverage, Hypoglycemic protocol. (7) Hyperlipidemia: Qualifiers: Hyperlipidemia type: mixed hyperlipidemia Qualified Code(s): E78.2 - Mixed hyperlipidemia Code(s): E78.5 - Hyperlipidemia, unspecified Status: Chronic Assessment and Plan: Hold statin therapy. (8) Hypertension: Qualifiers: Hypertension type: essential hypertension Qualified Code(s): I10 - Essential (primary) hypertension Code(s): I10 - Essential (primary) hypertension Status: Chronic Assessment and Plan: blood pressure has been stable. Monitor blood
[2019-08-31 17:04] LABS: Glucose Point of Care 104 (65-105)
[2019-08-31] MEDS: ERTAPENEM 1 GM/NS 50 ML 1 GM/50 ML BAG IVPB (17:49)
[2019-08-31 21:15] LABS: Glucose Point of Care 118 (65-105)
[2019-09-01] MEDS: DEXTROSE 5%/0.9% SOD CHL 1,000 ML 150 ML IV CONT ×2 (02:44→10:01)
[2019-09-01 04:35] VITALS: BP 113/64; PULSE 75; RESP 14; TEMP 36.3; O2SAT 97
[2019-09-01] MEDS: HEPARIN SODIUM 5,000 UNITS/ML VIAL 5000 UNITS SUB-Q (06:26)
[2019-09-01 06:32] LABS: Basophils Percent Auto 0.3 % (0.2-1.2); Eosinophils Absolute Auto 0.2 K/mm3 (0-0.3); Eosinophils Percent Auto 2.3 % (0-4.4); Hematocrit 34.6 % (37.0-47.0); Hemoglobin 11.1 g/dL (12.0-15.0); Immature Granulocyte Absolute 0.03 K/mm3 (0.00-0.031); Immature Granulocyte Percent A 0.5 % (0-0.5); Lymphocytes Absolute Auto 0.55 K/mm3 (0.9-3.2); Lymphocytes Percent Auto 8.3 % (18.3-44.2); Mean Corpuscular HGB Conc 32.1 g/dl (32-36); Mean Corpuscular Hemoglobin 27.5 pg (26-34); Mean Corpuscular Volume 85.6 fl (80-100); Mean Platelet Volume 10.6 fl (7.4-10.4); Monocytes Absolute Auto 0.5 K/mm3 (0.1-0.6); Monocytes Percent Auto 7.8 % (2.6-8.5); Neutrophils Absolute Auto 5.4 K/mm3 (1.3-6.7); Neutrophils Percent Auto 80.8 % (45.5-73.1); Platelet Count Result 128 k/mm3 (150-375); Red Blood Count 4.04 M/mm3 (4.2-5.4); Red Cell Distribution Width 15.8 % (11.5-14.5); White Blood Count 6.7 K/mm3 (4.5-10.0)
[2019-09-01 07:37] LABS: Alanine Aminotransferase 53 U/L (4-35); Albumin Level 2.5 g/dL (3.5-5.1); Alkaline Phosphatase 195 U/L (38-126); Aspartate Amino Transferase 35 U/L (14-36); Bilirubin Direct 0.2 mg/dL (0-0.3); Bilirubin,Total 2.6 mg/dL (0.2-1.3); Blood Urea Nitrogen 15 mg/dL (7-17); Calcium 7.1 mg/dL (8.4-10.2); Carbon Dioxide 26 mmol/L (22-30); Chloride 108 mmol/L (98-107); Estimated CRCL calculation 75 ml/min; Estimated Glomerular Filt Rate > 60; Glucose 93 mg/dL (65-105); Lipase 331 U/L (23-300); Magnesium 1.9 mg/dL (1.6-2.3); Potassium 3.5 mmol/L (3.4-5.0); Sodium 137 mmol/L (137-145)
[2019-09-01 07:45] LABS: Glucose Point of Care 91 (65-105)
[2019-09-01 08:00] VITALS: PULSE 75; RESP 14; O2SAT 97
[2019-09-01] MEDS: ASPIRIN 81 MG CHEWABLE TABLET PO (08:11)
--- NOTE | 2019-09-01 09:20 | WPDGIPROGNO ---
Progress Note: A&P Additional Plan Patient feels much improved today. She denies abdominal pain. Tolerating diet without difficulty. Physical exam reveals her to be alert. Comfortable at rest. Vital signs stable. HEENT exam she is anicteric. Lungs are clear to auscultation and percussion. Heart is without murmur. Abdomen bowel sounds are present soft nontender with no organomegaly. Labs reveal MRCP with a clear common bile duct. Venous Doppler suggest blood clot in her left soleal vein. Impression 1. Acute pancreatitis appears to be improving. LFTs markedly improved. Patient is now pain-free. Etiology remains unclear. Patient has had previous cholecystectomy. In a clear common bile duct. She does not drink alcohol. We will consider this in idiopathic etiology for pancreatitis. But cannot exclude passage of common bile duct sludge given her elevated LFTs at the time presentation. Plan is to discharge on low-fat diet. Follow-up LFTs in a week or so. 2. DVT. New finding on the left lower extremity. Management per primary care service. I see no contraindication to anticoagulation if required. Subjective Date/time seen: 09/01/19 09:20 Objective Data Vital Signs Vital Signs: Vital Signs - 24 hr 08/31/19 09:59 08/31/19 10:00 08/31/19 11:17 Temperature Pulse Rate 86 86 84 Respiratory Rate 16 16 Blood Pressure 110/61 Pulse Oximetry 97 96 08/31/19 12:00 08/31/19 16:00 08/31/19 19:38 Temperature 36.5 C 36.1 C L Pulse Rate 92 85 75 Respiratory Rate 26 H 18 14 Blood Pressure 112/64 121/54 L 115/61 Pulse Oximetry 98 98 98 09/01/19 04:35 09/01/19 08:00 Temperature 36.3 C L Pulse Rate 75 75 Respiratory Rate 14 14 Blood Pressure 113/64 Pulse Oximetry 97 97 Intake/Output Intake/Output: Intake & Output 08/29/19 08/30/19 08/31/19 09/01/19 23:59 23:59 23:59 23:59 Intake Total 2150 3250 1300 Output Total 1125 500 Balance 2150 2125 800 Meds/Results Medications: Active Medications Generic Name Dose Route Start Last Admin Trade Name Freq PRN Reason Stop Dose Admin Aspirin 81 mg 08/31/19 08:00 09/01/19 08:11 Aspirin Chewable PO 81 mg DAILY@0800 MARTÍN Administration Dextrose 12.5 gm 08/30/19 21:48 08/30/19 23:26 Dextrose 50% Syringe IV PUSH 12.5 gm PRN PRN Administration Hypoglycemia Protocol Glucagon 1 mg 08/30/19 21:48 Glucagon For Inj IM PRN PRN Hypoglycemia Protocol Heparin Sodium (Porcine) 5,000 units 09/01/19 06:00 09/01/19 06:26 Heparin Sodium SUB-Q 5,000 units Q8HR MARTÍN Administration Ertapenem 1 gm in 50 mls @ 100 mls/hr 08/31/19 18:00 08/31/19 18:19 Invanz 1 Gm/Ns 50 Ml IVPB Infused QPM MARTÍN Infusion Dextrose 1,000 mls @ 100 mls/hr 08/30/19 21:48 Dextrose 5% 1,000 Ml IVPB PRN PRN Hypoglycemia Protocol Dextrose/Sodium Chloride 1,000 mls @ 150 mls/hr 08/31/19 04:40 09/01/19 02:44 Dextrose 5% Sodium Chloride 0.9% IV CONT 150 mls/hr .[id number] MARTÍN Administration Insulin Aspart 2 - 5 units 09/01/19 08:00 09/01/19 08:08 Novolog SUB-Q Not Given TIDWM MARTÍN Protocol Morphine Sulfate 4 mg 08/30/19 20:09 Morphine Sulfate Inj IV PUSH Q2H PRN Pain Rated 7-10 Ondansetron HCl 4 mg 08/30/19 20:09 Zofran Inj IV PUSH Q4H PRN Nausea Radiology Results: ITS Impressions Abdomen/Pelvis CT 08/30/19 18:38 IMPRESSION: 1. Radiographically uncomplicated acute interstitial pancreatitis. 2. 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 3. 2.0 cm exophytic lesion at the lower pole of the left kidney with slightly greater than simple fluid attenuation most likely proteinaceous/hemorrhagic cyst. Differential would include less likely solid neoplasm and would recommend follow-up pre and postcontrast MRI or CT. Could also consider ultrasound although it would be a greater likelihood of nondiagnostic e
[2019-09-01] MEDS: POTASSIUM CHLORIDE 20 MEQ TABLET 40 MEQ PO (09:39)
[2019-09-01 11:33] LABS: Glucose Point of Care 165 (65-105)
--- NOTE | 2019-09-01 11:33 | PM.PNCARD ---
Progress Note: A&P Assessment and Plan (1) Atrial flutter with rapid ventricular response: Code(s): I48.92 - Unspecified atrial flutter Status: Acute Assessment and Plan: 68 y/o female with no prior cardiac history however cardiovascular risk factors of HTN, DM and HLD who presented with acute panceratitis, hyperbilirubinemia and A flutter Patient has A flutter with RVR in the setting of underlying SIRS/inflammation from acute pancreatitis She has converted to normal sinus rhythm after received IV fluids echo showed normal left ventricular systolic function Will start low dose Metoprolol for rate control if she is to go in A flutter again in the future CHADsVASC score is 4 given her risk of stroke ~5% per year. she has DVT and she is going to be on anticoagulation anyway will start on Xarelto (2) Elevated troponin: Code(s): R79.89 - Other specified abnormal findings of blood chemistry Status: Acute Assessment and Plan: very mild indeterminate trop elevation at 0.06 in the setting of tachycardia and SIRS. No Chest pain. No injury or ischemia on EKG. Will follow 2D echo Will plan outpatient ischemic evaluation. okay to proceed with GI procedures if needed (3) Acute pancreatitis: Qualifiers: Acute pancreatitis complication: unspecified Pancreatitis type: idiopathic Qualified Code(s): K85.00 - Idiopathic acute pancreatitis without necrosis or infection Code(s): K85.90 - Acute pancreatitis without necrosis or infection, unspecified Status: Acute Assessment and Plan: Management per primary team (4) Hypertension: Qualifiers: Hypertension type: essential hypertension Qualified Code(s): I10 - Essential (primary) hypertension Code(s): I10 - Essential (primary) hypertension Status: Chronic Assessment and Plan: Well controlled. Will start low dose Metoprolol (5) Type 2 diabetes mellitus without complications: Qualifiers: Diabetes mellitus nursing home insulin use: without termite helper use Qualified Code(s): E11.9 - Type 2 diabetes mellitus without complications Code(s): E11.9 - Type 2 diabetes mellitus without complications Status: Chronic (6) Hyperlipidemia: Qualifiers: Hyperlipidemia type: mixed hyperlipidemia Qualified Code(s): E78.2 - Mixed hyperlipidemia Code(s): E78.5 - Hyperlipidemia, unspecified Status: Chronic Assessment and Plan: Has mild transaminitis. Okay to hold statin for now. LDL is 56 Subjective Date/time seen: 09/01/19 11:33She feels better today, no chest pain no abdominal pain no nausea no vomiting. No more arrhythmia Exam Const: General: no acute distress Eyes: Sclera: sclerae normal Neck: Neck: no JVD Carotids: no bruits Resp: Effort & Inspection: normal respiratory effort Auscultation: clear to auscultation bilaterally Cardio: Rate: regular rate and not tachycardic Rhythm: regular rhythm Heart sounds: no gallops, no murmurs and no rubs Skin: General skin exam: normal color Neuro: Cranial nerves: Yes Normal hearing present Speech: normal speech Extrem: General: normal to inspection and no edema Psych: Affect: normal affect Objective Data Vital Signs Vital Signs: Vital Signs - 24 hr 08/31/19 12:00 08/31/19 16:00 08/31/19 19:38 Temperature 36.5 C 36.1 C L Pulse Rate 92 85 75 Respiratory Rate 26 H 18 14 Blood Pressure 112/64 121/54 L 115/61 Pulse Oximetry 98 98 98 09/01/19 04:35 09/01/19 08:00 Temperature 36.3 C L Pulse Rate 75 75 Respiratory Rate 14 14 Blood Pressure 113/64 Pulse Oximetry 97 97 Intake/Output Intake/Output: Intake & Output 08/29/19 08/30/19 08/31/19 09/01/19 23:59 23:59 23:59 23:59 Intake Total 2150 3250 2540 Output Total 1125 500 Balance 2150 2125 2040 Meds/Results Medications: Active Medications Generic Name Dose Route Start Last Admin Trade Name Darline Clark
--- NOTE | 2019-09-01 14:08 | PM.DS ---
DS: Admitting Diagnosis Admitting Diagnosis Admitting Diagnosis: Idiopathic acute pancreatitis without necrosis or infection DS: Discharge Diagnosis Discharge Diagnosis (1) Acute pancreatitis: Qualifiers: Acute pancreatitis complication: unspecified Pancreatitis type: idiopathic Qualified Code(s): K85.00 - Idiopathic acute pancreatitis without necrosis or infection Code(s): K85.90 - Acute pancreatitis without necrosis or infection, unspecified Status: Acute Assessment and Plan: NPO, bowel rest, Continue IV hydration, Pain control w/ IV narcotics. Hold statin therapy as this is known to cause acute pancreatitis. Check lipid panel. 08/31/19 16:10 Patient is 68-year-old female with no significant abdomen history presented to the emergency department with complaint of fatigue being tired 3-4 days prior to coming emergency depart patient had few episodes of nausea, vomiting and diarrhea, patient family noticed patient appeared more jaundiced was brought to the emergency department for further evaluation, patient had a CT scan of abdomen which showed interstitial pancreatitis and and blood work showed elevated bilirubin, patient acute hepatitis panel is negative, patient was seen by GI to further evaluate patient had MRCP which did not show choledocholithiasis rather showed acute interstitial pancreatitis patient is clinically stable denies any abdominal pain nausea or vomiting patient currently NPO patient also had an episode of atrial flutter with RVR patient is seen by window decorator and suspected most likely triggered by stress from acute interstitial pancreatitis patient was started on IV fluid and emergency depart patient did converted back to sinus rhythm and currently the rate is controlled patient is a on low-dose of beta-dino to prevent any future will fibrillation patient CHADsVASC score is 4 will require anticoagulation once patient GI symptoms have resolved, currently patient is feeling much better compared to when she arrived, will continue to monitor patient will be seen by GI and window decorator (2) Severe sepsis: Code(s): A41.9 - Sepsis, unspecified organism; R65.20 - Severe sepsis without septic shock Status: Acute Assessment and Plan: w/ tachycardia, leukocytosis, tachypnea, fever. Source of sepsis is likely acute pancreatitis. Continue IV carbapenem that the patient tolerated well in the ER tonight. blood cultures pending. (3) Acute kidney injury: Code(s): N17.9 - Acute kidney failure, unspecified Status: Acute Assessment and Plan: Continue IV fluid challenge. Monitor urine output and renal function. Avoid nephrotoxic agents, renally dose medications. (4) Transaminitis: Code(s): R74.0 - Nonspecific elevation of levels of transaminase and lactic acid dehydrogenase [LDH] Status: Acute Assessment and Plan: Cholestatic pattern of transaminitis. GI has been consulted. Likely will need MRCP today. (5) Hyperbilirubinemia: Code(s): E80.6 - Other disorders of bilirubin metabolism Status: Acute Assessment and Plan: Trend bilirubin. (6) Type 2 diabetes mellitus without complications: Qualifiers: Diabetes mellitus buttermaker insulin use: without chcf use Qualified Code(s): E11.9 - Type 2 diabetes mellitus without complications Code(s): E11.9 - Type 2 diabetes mellitus without complications Status: Chronic Assessment and Plan: Accuchecks, SSI Coverage, Hypoglycemic protocol. (7) Hyperlipidemia: Qualifiers: Hyperlipidemia type: mixed hyperlipidemia Qualified Code(s): E78.2 - Mixed hyperlipidemia Code(s): E78.5 - Hyperlipidemia, unspecified Status: Chronic Assessment and Plan: Hold statin therapy. (8) Hypertension: Qualifiers: Hypertension type: essential hypertension Qualified Code(s): I10 - Essential (primary) hypertension Code(s):
--- NOTE | 2019-09-01 15:13 | PC.NURSE ---
[facility] pharmacy notified patient that her xarelto medication will not be available until Tuesday. Possibly Tuesday evening. Notified Dr. Smith of the same as written. Dr. Smith voiced that he will call the prompt care rn [place].
[2019-09-01] MEDS: RIVAROXABAN 15 MG TABLET PO (15:38)
--- NOTE | 2019-09-01 15:57 | PC.NURSE ---
Written prescription was sent to pharmacy for xarelto 15 mg, 5 tablets. Once filled by pharmacy gave them to patient for home usage because [facility] pharmacy reported to patient that they will not xarelto as prescribed until Tuesday.
[2019-09-01 16:10] LABS: Glucose Point of Care 134 (65-105)
== END 2019-09-01 16:20 | disposition home or self-care (01) | DRG 871 ==
LOC: ANHED 20:16 → ANHICU 08-31 09:40 → ANH3MED 08-31 18:36 → ANHICU 09-05 13:41
PROVIDERS: Emergency Medicine; Emergency Medicine Emergency Medical Services; Internal Medicine Gastroenterology; Admitting Provider Family Medicine; Emergency Provider Emergency Medicine; PCP Family Medicine; Visit Provider Family Medicine
DX: A41.9 Sepsis, unspecified organism (principal); K85.00 Idiopathic acute pancreatitis without necrosis or infection; N17.9 Acute kidney failure, unspecified; I48.92 Unspecified atrial flutter; I82.4Z2 Acute embolism and thrombosis of unspecified deep veins of left distal lower extremity; R65.20 Severe sepsis without septic shock; R74.0 Nonspecific elevation of levels of transaminase and lactic acid dehydrogenase [LDH]; E80.6 Other disorders of bilirubin metabolism; E78.5 Hyperlipidemia, unspecified; R79.89 Other specified abnormal findings of blood chemistry; N20.0 Calculus of kidney; E11.9 Type 2 diabetes mellitus without complications; I10 Essential (primary) hypertension; D50.9 Iron deficiency anemia, unspecified; L73.2 Hidradenitis suppurativa; Z79.899 Other long term (current) drug therapy; Z90.49 Acquired absence of other specified parts of digestive tract
CPT/HCPCS: 36415; 71045; 74176; 74181; 76376; 78580; 80053; 80061; 80074; 81001; 82140; 82247; 82248; 83605; 83690; 83735; 84484; 85025; 85380; 85610; 85730; 87040; 93005; 93306; 93970; 96361; 96365; 96367; 96375; 99285; A9270; A9540; C9113; J0131; J1335; J1644; J1650; J3475; J3480; J7030; J7042; J7120

== ENCOUNTER 2019-09-17 16:28 | Outpatient (CLI) | payer MEDICARE, SELFPAY ==
[2019-09-17 18:06] LABS: Hemoglobin 13.4 g/dL (12.0-15.0); Mean Corpuscular HGB Conc 31.9 g/dl (32-36); Mean Corpuscular Hemoglobin 27.6 pg (26-34); Mean Corpuscular Volume 86.4 fl (80-100); Mean Platelet Volume 10.7 fl (7.4-10.4); Platelet Count Result 243 k/mm3 (150-375); Red Blood Count 4.86 M/mm3 (4.2-5.4); Red Cell Distribution Width 16.2 % (11.5-14.5); White Blood Count 10.5 K/mm3 (4.5-10.0)
[2019-09-17 18:12] LABS: Alanine Aminotransferase 36 U/L (4-35); Albumin Level 4.2 g/dL (3.5-5.1); Alkaline Phosphatase 101 U/L (38-126); Aspartate Amino Transferase 32 U/L (14-36); Bilirubin,Total 0.9 mg/dL (0.2-1.3); Lipase 429 U/L (23-300)
== END 2019-09-17 16:29 | disposition home or self-care (01) ==
PROVIDERS: PCP Family Medicine; Visit Provider Internal Medicine Gastroenterology
DX: K85.00 Idiopathic acute pancreatitis without necrosis or infection (principal)
CPT/HCPCS: 36415; 80076; 83690; 85027

== ENCOUNTER 2020-04-15 10:43 | Outpatient (CLI) | payer MEDICARE, SELFPAY ==
--- NOTE | ~2020-04-15 | CT_ITS ---
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 The dose-length product was 1312.30 mGy-cm. Automated exposure control and it erative reconstruction technique were employed. COMPARISON: 08/30/2019. FINDINGS: There is a 2.2 cm left adrenal adenoma. There is a fat-containing right adrenal mass, consi stent with adrenal myelolipoma. There are multiple right renal stones, largest being a staghorn calcu ileana measuring up to 3.5 cm axially. There are cholecystectomy clips. Lung bases unremarkable. Heart size normal. No significant pleural or pericardial effusion. There are surgical changes of previous ventral hernia repair. There is atherosclerosis. No lymphadenopathy. Th ere are cholecystectomy clips. Bowel pattern nonobstructive. There is a nonenhancing 2.3 cm exophytic left renal mass which is slightly hyperdense to fluid, likel y complicated cyst. There are additional smaller low-density masses of the kidneys, also likely cysts . Colonic diverticulosis without evidence for diverticulitis. The spleen, pancreas are unremarkable. Th ere is moderate lower thoracic and lumbar spondylosis. IMPRESSION: 1. Multiple low density lesions of both kidneys which do not significantly enhance, consistent with s imple and complicated cysts. 2: Multiple right renal stones, largest being a staghorn calculus measuring up to 3.5 cm. 3: Left adrenal adenoma measuring 2.2 cm. 4: Right adrenal myelolipoma. Reviewed, dictated and finalized at location A. CARRIER INSPECTOR IMPRESSION: 1. Multiple low density lesions of both kidneys which do not significantly enha nce, consistent with simple and complicated cysts. 2: Multiple right renal stones, largest being a staghorn calculus measuring up to 3.5 cm. 3: Left adrenal adenoma measuring 2.2 cm. 4: Right adrenal myelolipoma.
[2020-04-15 11:10] LABS: Estimated Glomerular Filt Rate > 60
== END 2020-04-15 10:44 | disposition home or self-care (01) ==
LOC: ANHIMG 10:46
PROVIDERS: PCP Family Medicine; Visit Provider Urology
DX: D41.02 Neoplasm of uncertain behavior of left kidney (principal); N20.0 Calculus of kidney
CPT/HCPCS: 74170; Q9967

== ENCOUNTER 2020-07-11 11:23 | Outpatient (CLI) | payer MEDICARE, SELFPAY | END 2020-07-11 11:24 | disposition home or self-care (01) | LOC: ANHCOVIDVC 11:23 | PROVIDERS: PCP Family Medicine | DX: Z23 Encounter for immunization (principal) | CPT/HCPCS: 0001A; 91300 ==

== ENCOUNTER 2020-08-01 11:17 | Outpatient (CLI) | payer MEDICARE, SELFPAY | END 2020-08-01 11:18 | disposition home or self-care (01) | LOC: ANHCOVIDVC 11:17 | PROVIDERS: PCP Family Medicine | DX: Z23 Encounter for immunization (principal) | CPT/HCPCS: 0002A; 91300 ==

== ENCOUNTER 2020-11-20 17:14 | Outpatient (CLI) | payer MEDICARE, SELFPAY ==
--- NOTE | ~2020-11-20 | XR_ITS ---
XR knee RT 3V 11/20/2020 17:59 Indication: Right knee pain Procedure: 4 views right knee Comparison: No prior studies for comparison. Findings: There is severe tricompartment osteoarthritis. There is moderate joint effusion. There are extensive calcifications of the popliteal vessels. No acute fracture or traumatic malalignment. Impression: 1: Severe osteoarthritis of the right knee. Reviewed, dictated and finalized at location A. Impression: 1: Severe osteoarthritis of the right knee.
== END 2020-11-20 17:15 | disposition home or self-care (01) ==
LOC: ANHIMG 17:22
PROVIDERS: PCP Family Medicine; Visit Provider Nurse Practitioner
DX: M17.11 Unilateral primary osteoarthritis, right knee (principal)
CPT/HCPCS: 73562

== ENCOUNTER 2021-10-19 06:59 | Outpatient (CLI) | payer MEDICARE, SELFPAY ==
[2021-10-19 08:45] LABS: Basophils Absolute Auto 0.1 K/mm3 (0.0-0.1); Basophils Percent Auto 0.6 % (0.2-1.2); Eosinophils Absolute Auto 0.3 K/mm3 (0-0.3); Eosinophils Percent Auto 2.9 % (0-4.4); Hematocrit 42.6 % (37.0-47.0); Hemoglobin 13.1 g/dL (12.0-15.0); Immature Granulocyte Absolute 0.02 K/mm3 (0.00-0.031); Immature Granulocyte Percent A 0.2 % (0-0.5); Lymphocytes Absolute Auto 1.85 K/mm3 (0.9-3.2); Lymphocytes Percent Auto 18.9 % (18.3-44.2); Mean Corpuscular HGB Conc 30.8 g/dl (32-36); Mean Corpuscular Hemoglobin 25.7 pg (26-34); Mean Corpuscular Volume 83.7 fl (80-100); Mean Platelet Volume 9.7 fl (7.4-10.4); Monocytes Absolute Auto 0.5 K/mm3 (0.1-0.6); Monocytes Percent Auto 5.4 % (2.6-8.5); Platelet Count Result 233 k/mm3 (150-375); Red Blood Count 5.09 M/mm3 (4.2-5.4); Red Cell Distribution Width 16.8 % (11.5-14.5); White Blood Count 9.8 K/mm3 (4.5-10.0)
[2021-10-19 09:01] LABS: Alanine Aminotransferase 10 U/L (6-35); Albumin Level 4.5 g/dL (3.5-5.1); Alkaline Phosphatase 67 U/L (38-126); Anion Gap 10 mmol/L (8-16); Aspartate Amino Transferase 19 U/L (14-36); Bilirubin,Total 0.4 mg/dL (0.2-1.3); Blood Urea Nitrogen 24 mg/dL (7-17); Calcium 8.8 mg/dL (8.4-10.2); Carbon Dioxide 28 mmol/L (22-30); Chloride 104 mmol/L (98-107); Cholesterol 173 mg/dL (0-200); Estimated Glomerular Filt Rate > 60; Glucose 102 mg/dL (65-110); HDL Direct 35 mg/dL; Potassium 4.3 mmol/L (3.4-5.0); Sodium 142 mmol/L (137-145); Triglycerides 101 mg/dL (<150)
[2021-10-19 09:12] LABS: LDL Cholesterol Direct 89 mg/dL
[2021-10-19 09:19] LABS: Hemoglobin A1C 5.3 % (<5.7)
[2021-10-19 09:53] LABS: Vitamin D 25 Hydroxy 26.7 ng/mL
[2021-10-19 10:31] LABS: MALB Creatinine Ratio 212.9 mg/g (0-30); Microalbumin Urine Random 238.4 mg/L (0-16.7)
== END 2021-10-19 07:00 | disposition home or self-care (01) ==
PROVIDERS: PCP Family Medicine; Visit Provider Nurse Practitioner
DX: E11.9 Type 2 diabetes mellitus without complications (principal); I10 Essential (primary) hypertension; E78.5 Hyperlipidemia, unspecified; E55.9 Vitamin D deficiency, unspecified
CPT/HCPCS: 36415; 80053; 80061; 82043; 82306; 83036; 85025

== ENCOUNTER 2023-01-15 07:17 | Outpatient (CLI) | payer MEDICARE, SELFPAY ==
[2023-01-15 08:14] LABS: Basophils Absolute Auto 0.1 K/mm3 (0.0-0.1); Basophils Percent Auto 0.5 % (0.2-1.2); Eosinophils Absolute Auto 0.2 K/mm3 (0-0.3); Eosinophils Percent Auto 2.1 % (0-4.4); Hematocrit 44.5 % (37.0-47.0); Hemoglobin 13.8 g/dL (12.0-15.0); Immature Granulocyte Absolute 0.03 K/mm3 (0.00-0.031); Immature Granulocyte Percent A 0.3 % (0-0.5); Lymphocytes Percent Auto 18.4 % (18.3-44.2); Mean Corpuscular Hemoglobin 26.7 pg (26-34); Mean Corpuscular Volume 86.2 fl (80-100); Monocytes Absolute Auto 0.6 K/mm3 (0.1-0.6); Monocytes Percent Auto 5.3 % (2.6-8.5); Neutrophils Absolute Auto 8.4 K/mm3 (1.3-6.7); Neutrophils Percent Auto 73.4 % (45.5-73.1); Platelet Count Result 236 k/mm3 (150-375); Red Blood Count 5.16 M/mm3 (4.2-5.4); Red Cell Distribution Width 15.5 % (11.5-14.5); White Blood Count 11.4 K/mm3 (4.5-10.0)
[2023-01-15 08:31] LABS: Alanine Aminotransferase 13 U/L (6-35); Albumin Level 4.4 g/dL (3.5-5.1); Alkaline Phosphatase 68 U/L (38-126); Anion Gap 5 mmol/L (8-16); Aspartate Amino Transferase 19 U/L (14-36); Bilirubin,Total 0.8 mg/dL (0.2-1.3); Blood Urea Nitrogen 23 mg/dL (7-17); Calcium 9.3 mg/dL (8.4-10.2); Carbon Dioxide 28 mmol/L (22-30); Chloride 105 mmol/L (98-107); Cholesterol 166 mg/dL (0-200); Estimated Glomerular Filt Rate 54; Glucose 103 mg/dL (65-110); HDL Direct 41 mg/dL; Potassium 4.2 mmol/L (3.4-5.0); Sodium 138 mmol/L (137-145); Triglycerides 92 mg/dL (<150)
[2023-01-15 08:38] LABS: LDL Cholesterol Direct 86 mg/dL
[2023-01-15 10:55] LABS: Creatinine Urine 94.8 mg/dL
[2023-01-15 10:57] LABS: Microalbumin Urine Random 125.1 mg/L (0-16.7)
== END 2023-01-15 07:18 | disposition home or self-care (01) ==
LOC: ANHLAB 07:21
PROVIDERS: PCP Family Medicine; Visit Provider Nurse Practitioner Family
DX: I10 Essential (primary) hypertension (principal); E78.5 Hyperlipidemia, unspecified; E11.9 Type 2 diabetes mellitus without complications
CPT/HCPCS: 36415; 80053; 80061; 82043; 83036; 84443; 85025

== ENCOUNTER 2023-07-09 07:43 | Outpatient (CLI) | payer MEDICARE, SELFPAY ==
[2023-07-09 08:09] LABS: Basophils Absolute Auto 0.1 K/mm3 (0.0-0.1); Basophils Percent Auto 0.6 % (0.2-1.2); Eosinophils Absolute Auto 0.3 K/mm3 (0-0.3); Eosinophils Percent Auto 3.1 % (0-4.4); Immature Granulocyte Absolute 0.03 K/mm3 (0.00-0.031); Immature Granulocyte Percent A 0.4 % (0-0.5); Lymphocytes Absolute Auto 1.41 K/mm3 (0.9-3.2); Lymphocytes Percent Auto 16.9 % (18.3-44.2); Mean Corpuscular HGB Conc 30.2 g/dl (32-36); Mean Corpuscular Hemoglobin 26.2 pg (26-34); Mean Corpuscular Volume 86.5 fl (80-100); Mean Platelet Volume 9.6 fl (7.4-10.4); Monocytes Absolute Auto 0.5 K/mm3 (0.1-0.6); Monocytes Percent Auto 6.4 % (2.6-8.5); Neutrophils Absolute Auto 6.1 K/mm3 (1.3-6.7); Neutrophils Percent Auto 72.6 % (45.5-73.1); Platelet Count Result 212 k/mm3 (150-375); Red Blood Count 4.97 M/mm3 (4.2-5.4); Red Cell Distribution Width 15.9 % (11.5-14.5); White Blood Count 8.3 K/mm3 (4.5-10.0)
[2023-07-09 08:16] LABS: Alanine Aminotransferase 13 U/L (6-35); Albumin Level 4.2 g/dL (3.5-5.1); Alkaline Phosphatase 67 U/L (38-126); Anion Gap 4 mmol/L (4-12); Aspartate Amino Transferase 20 U/L (14-36); Bilirubin,Total 0.7 mg/dL (0.2-1.3); Blood Urea Nitrogen 17 mg/dL (7-17); Carbon Dioxide 29 mmol/L (22-30); Chloride 106 mmol/L (98-107); Cholesterol 140 mg/dL (0-200); Estimated Glomerular Filt Rate > 60; Glucose 109 mg/dL (65-110); HDL Direct 37 mg/dL; Potassium 4.1 mmol/L (3.4-5.0); Sodium 139 mmol/L (137-145); Triglycerides 140 mg/dL (<150)
[2023-07-09 08:26] LABS: LDL Cholesterol Direct 82 mg/dL
[2023-07-09 09:35] LABS: Vitamin D 25 Hydroxy 14.3 ng/mL
[2023-07-09 10:09] LABS: Hemoglobin A1C 5.1 % (<5.7)
== END 2023-07-09 07:44 | disposition home or self-care (01) ==
LOC: ANHLAB 07:46
PROVIDERS: PCP Family Medicine; Visit Provider Nurse Practitioner Family
DX: E11.9 Type 2 diabetes mellitus without complications (principal); Z13.29 Encounter for screening for other suspected endocrine disorder; E55.9 Vitamin D deficiency, unspecified; I10 Essential (primary) hypertension; Z13.220 Encounter for screening for lipoid disorders
CPT/HCPCS: 36415; 80053; 80061; 82306; 83036; 84443; 85025

== ENCOUNTER 2024-01-14 08:31 | Outpatient (CLI) | payer MEDICARE, SELFPAY ==
[2024-01-14 09:32] LABS: Basophils Absolute Auto 0.1 K/mm3 (0.0-0.1); Basophils Percent Auto 0.8 % (0.2-1.2); Eosinophils Absolute Auto 0.3 K/mm3 (0-0.3); Eosinophils Percent Auto 3.2 % (0-4.4); Hematocrit 41.6 % (37.0-47.0); Hemoglobin 12.6 g/dL (12.0-15.0); Immature Granulocyte Absolute 0.02 K/mm3 (0.00-0.031); Immature Granulocyte Percent A 0.2 % (0-0.5); Lymphocytes Absolute Auto 1.37 K/mm3 (0.9-3.2); Lymphocytes Percent Auto 15.5 % (18.3-44.2); Mean Corpuscular HGB Conc 30.3 g/dl (32-36); Mean Corpuscular Hemoglobin 26.1 pg (26-34); Mean Corpuscular Volume 86.1 fl (80-100); Monocytes Absolute Auto 0.6 K/mm3 (0.1-0.6); Monocytes Percent Auto 6.7 % (2.6-8.5); Neutrophils Absolute Auto 6.5 K/mm3 (1.3-6.7); Neutrophils Percent Auto 73.6 % (45.5-73.1); Platelet Count Result 245 k/mm3 (150-375); Red Blood Count 4.83 M/mm3 (4.2-5.4); Red Cell Distribution Width 16.1 % (11.5-14.5); White Blood Count 8.9 K/mm3 (4.5-10.0)
[2024-01-14 09:43] LABS: Alanine Aminotransferase 12 U/L (6-35); Albumin Level 4.2 g/dL (3.5-5.1); Alkaline Phosphatase 71 U/L (38-126); Anion Gap 10 mmol/L (4-12); Aspartate Amino Transferase 23 U/L (14-36); Bilirubin,Total 0.6 mg/dL (0.2-1.3); Blood Urea Nitrogen 18 mg/dL (7-17); Calcium 8.8 mg/dL (8.4-10.2); Carbon Dioxide 29 mmol/L (22-30); Chloride 104 mmol/L (98-107); Cholesterol 151 mg/dL (0-200); Estimated Glomerular Filt Rate 54; Glucose 104 mg/dL (65-110); HDL Direct 32 mg/dL; Potassium 4.6 mmol/L (3.4-5.0); Sodium 143 mmol/L (137-145); Triglycerides 103 mg/dL (<150)
[2024-01-14 09:54] LABS: LDL Cholesterol Direct 74 mg/dL
[2024-01-14 10:01] LABS: Creatinine Urine 137.3 mg/dL
[2024-01-14 10:41] LABS: MALB Creatinine Ratio 230.1 mg/g (0-30); Microalbumin Urine Random 315.9 mg/L (0-16.7)
[2024-01-14 11:27] LABS: Hemoglobin A1C 5.4 % (<5.7)
== END 2024-01-14 08:32 | disposition home or self-care (01) ==
PROVIDERS: PCP Family Medicine; Visit Provider Nurse Practitioner Family
DX: D50.9 Iron deficiency anemia, unspecified (principal); E11.9 Type 2 diabetes mellitus without complications; I10 Essential (primary) hypertension; E78.5 Hyperlipidemia, unspecified; Z29.9 Encounter for prophylactic measures, unspecified
CPT/HCPCS: 36415; 80053; 80061; 82043; 83036; 84443; 85025

== ENCOUNTER 2024-04-19 06:30 | Inpatient (IN) | payer MEDICARE, SELFPAY ==
[2024-04-19] VITALS (15 sets, daily range): BP systolic 85–120; BP diastolic 48–80; PULSE 78–100; RESP 16–24; TEMP 36.2–36.5; O2SAT 92–100; BMI 31.3
--- NOTE | ~2024-04-19 | XR_ITS ---
CHEST RADIOGRAPH, PA AND LATERAL CLINICAL HISTORY: lungs sound worse . COMPARISON: 04/19/2024 TECHNIQUE: PA and lateral views of the chest. FINDINGS The cardiomediastinal silhouette is unremarkable. Increased interstitial markings are identified bilaterally, findings suggesting mild pulmonary vascul ar congestion. Redemonstration of bibasilar infiltrates, better seen on CT examination performed 04/19/2024. The remainder of the lungs are clear. IMPRESSION: Mild pulmonary vascular congestion with bibasilar infiltrates, as detailed above. Reviewed, dictated and finalized at location A. OR INSIGHT MANAGER IMPRESSION: Mild pulmonary vascular congestion with bibasilar infiltrates, as detailed star godwin
--- NOTE | ~2024-04-19 | XR_ITS ---
CHEST RADIOGRAPH CLINICAL HISTORY: sob . COMPARISON: 04/23/2024 TECHNIQUE: Single portable view of the chest. FINDINGS Redemonstration of cephalization of the vascularity within the lungs, as well as possible air broncho grams in the right mid to lower lung field. The cardiomediastinal silhouette is enlarged, unchanged. IMPRESSION: Pulmonary vascular congestion redemonstrated, now with possible early infiltrate in the right mid to lower lung field. Reviewed, dictated and finalized at location A. STANT SALES CENTER MANAGER IMPRESSION: Pulmonary vascular congestion redemonstrated, now with possible early infiltrat e in the right mid to lower lung field.
--- NOTE | ~2024-04-19 | CT_ITS ---
EXAMINATION: CT abdomen pelvis wo con DATE: 04/19/2024 09:31 INDICATION: Diarrhea. Kidney injury. TECHNIQUE: Computed tomography (CT) of the abdomen and pelvis was performed without intravenous contr ast. Automated exposure control and iterative reconstruction technique were employed. The dose-length product was 889.63 mGy-cm. COMPARISON: CT dated 04/15/2020, 08/30/2019 and 07/06/2015 FINDINGS: Tree-in-bud opacities, groundglass opacities and patchy consolidation in the right middle and bilater al lower lobes additional mild tree-in-bud opacities in the lingula consistent with endobronchial spr ead of disease and most likely pneumonia. Heart size normal. Small of atherosclerotic coronary artery calcific lesion. Aortic valve calcification. No pericardial or pleural effusion. Cholecystectomy clips the gallbladder fossa. Liver, spleen and pancreas are normal. 1.5 cm low-attenu ation left adrenal adenoma. 2.2 cm and 1.7 cm macroscopic fat attenuation right adrenal nodules consi stent with myeloma lipomas. Again seen are bilateral renal cysts, the largest a 2.3 cm exophytic left renal cyst with slightly greater than simple fluid attenuation but without evident enhancement on th e prior study. Again seen is a large staghorn calculus in the right renal pelvis extending into multi ple calyces which measures at least 5.4 cm in maximal dimension. No stones in the left kidney or sindy g the bilateral ureters. No hydronephrosis. Bladder, uterus and bilateral adnexa are unremarkable. There is moderate colonic diverticulosis with a sigmoid predominance. There is no adjacent inflammat ory change to suggest diverticulitis. There appears be a left rectal cutaneous fistula with gas also tracking cephalad into the soft tissues along the left side of the coccyx and into the subcutaneous f at at the left side of the inferior left gluteal cleft. No evident cortical erosion to suggest associ ated osteomyelitis. Along These findings are chronic with minimal change since CT from 07/06/2015. rj e the fistula is caudal herniation of some of the perirectal fat. Small bowel and appendix are jalen l. No free intraperitoneal gas or fluid. No pathologically enlarged abdominal or pelvic lymphadenopat hy. Mild lumbar and moderate thoracic spondylosis. IMPRESSION: 1. Bibasilar lung disease most suspicious for pneumonia. No acute intra-abdominal/pelvic process. 2. Unchanged large right staghorn calculus without hydronephrosis. 3. Chronic left recto cutaneous fistula. Reviewed, dictated and finalized at location A. E SHEARER IMPRESSION: 1. Bibasilar lung disease most suspicious for pneumonia. No acute intra-abdomin al/pelvic process. 2. Unchanged large right staghorn calculus without hydronephrosis. 3. Chronic left recto cutaneous fistula.
--- NOTE | ~2024-04-19 | XR_ITS ---
EXAMINATION: XR chest 2V DATE: 04/19/2024 08:33 INDICATION: Prolonged cough. TECHNIQUE: Frontal and lateral views of the chest were obtained. COMPARISON: Chest single view 08/30/2019, CT abdomen 04/15/2020 FINDINGS: There are airspace opacities at the lung bases. No pleural effusion or pneumothorax. The he art size is normal. IMPRESSION: 1. Airspace opacities at the lung bases, consistent with atelectasis versus pneumonia. Reviewed, dictated and finalized at location A. L EQUIPMENT MECHANIC IMPRESSION: 1. Airspace opacities at the lung bases, consistent with atelectasis versus pne umonia.
--- OUTSIDE RECORDS SUMMARY | 2024-04-19 06:33 | XMS_ITS | Referral Summary ---
Author Organization [facility] [address] [facility] [address] [place] [address] Care Team Providers Care Auxiliary Equipment Tender Name Role Phone Cody Holt MD Primary Care Provider Encounters Date Type Department Care Team Description 02/28/2024 Telephone [facility] Cardiology [address] [place] [address] Avtar Gray MD Med Refill from Last 3 Months Allergies Active Allergy Reactions Criticality Noted Date Comments Clindamycin Unknown 05/20/2020 Iodinated Contrast Media Unknown 05/20/2020 Penicillins Unknown 05/20/2020 Silver Nitrate Unknown 05/20/2020 Sulfa (Sulfonamide Antibiotics) Unknown 11/2020 Medications Januvia 100 mg tablet Take 1 tablet (100 mg total) by mouth daily 0 Active ferrous sulfate 325 mg (65 mg of elemental iron) tabletIndicatio ns:Iron Deficiency Anemia Take 1 tablet (325 mg total) by mouth daily with breakfast Active ascorbic acid (VITAMIN C) 1,000 mg tablet Take 1 tablet (1,000 mg total) by mouth daily Active atorvastatin (LIPITOR) 10 mg tablet Take 1 tablet by mouth once daily 90 tablet 2 Active lisinopriL (PRINIVIL,ZESTR IL) 20 mg tablet Take 1 tablet (20 mg total) by mouth daily 3 Active metoprolol tartrate (LOPRESSOR) 25 mg immediate release tablet Take 1 tablet (25 mg total) by mouth 2 (two) times a day 180 tablet 2 4 Active Xarelto 20 mg tablet Take 1 tablet (20 mg total) by mouth daily 90 tablet 5 Active Xarelto 20 mg tablet Take 1 tablet by mouth once daily 90 tablet 2 4 03/30/19 25 Discontinu ed(Reorder ) Active Problems Problem Noted Date Diagnosed Date Atrial flutter, paroxysmal ([facility]) 05/20/2020 DVT (deep venous thrombosis) ([facility]) Hypertension associated with diabetes 05/20/2020 Mixed diabetic hyperlipidemi a associated with type 2 diabetes mellitus ([facility]) 05/20/2020 Chronic anticoagulation 05/20/2020 Palpitations 05/20/2020 Social History Tobacco Use Types Packs/Day Years Used Date Smoking Tobacco: Never Smokeless Tobacco: Never Personal Safety Answer Date Recorded Getting School Help Needed Not on file 03/14 Comments Unknown Sex and Gender Information Value Date Recorded Sex Assigned at Not on file Legal Sex Female 11:10 AM DONOR RECRUITMENT MANAGER Gender Identity Female 09/02/2020 4:54 PM CDT Sexual Orientation Straight 09/02/2020 4: 54 PM CDT Last Filed Vital Signs Vital Sign Reading Time Taken Comments Blood Pressure 110/68 04/08/2023 1:22 PM DONOR RECRUITMENT MANAGER Pulse 79 04/08/2023 1:22 PM DONOR RECRUITMENT MANAGER Temperature - - Respiratory Rate - - Oxygen Saturation 97% 04/08/2023 1:22 PM DONOR RECRUITMENT MANAGER Inhaled Oxygen Concentration - - Weight 90 kg (198 lb 8 oz) 04/08/2023 1:22 PM CS T Height 167.6 cm (5' 6 ) 04/08/2023 1:22 PM DONOR RECRUITMENT MANAGER Body Mass Index 32.04 04/08/2023 1:22 PM DONOR RECRUITMENT MANAGER Plan of Treatment Not on file Procedures Procedure Name Priority Date/Time Associated Diagnosis Comments POCT LIPID PANEL Routine 04/08/2023 3:3 9 PM DONOR RECRUITMENT MANAGER Mixed diabetic hyperlipidemia associated with type 2 diabetes mellitus ([facility]) ([facility]) from Last 3 Months or Most Recently Relevant to Health Maintenance Results * POCT lipid panel (04/08/2023 3:39 PM DONOR RECRUITMENT MANAGER) Cholesterol, POC 161 mg/dL Comment:GLU = 87 HDL, POC 50 mg/dL Triglycerides, POC 68 mg/dL LDL Cholesterol POC 98 mg/dL Chol/HDL Ratio, POC 2.0 Non-HDL Cholesterol, POC 112 mg/dL Cholesterol Total, POC 161 mg/dL Capillary blood 04/08/2023 3 :39 PM DONOR RECRUITMENT MANAGER Babak Martinez MD POINT OF CARE TEST ORDER DESHAWN Final Result from Last 3 Months or Most Recently Relevant to Health Maintenance Insurance MEDICARE MEDICARE [facility] Care Teams Auxiliary Equipment Tender Relationship Specialty Start Date End Date Cody Holt MD PCP - General Family Practice 03/25/20
--- OUTSIDE RECORDS SUMMARY | 2024-04-19 06:33 | XMS_ITS | Data Portability ---
Author Organization [place] [facility] OFFICE Address [address] [place] [address] Care Team Providers Care Sugarcane Research Technician Name Role Phone GRICEL JEAN BAPTISTE Primary Care Provider [phone] GRICEL JEAN BAPTISTE Referring Provider [phone] Assessment No assessment recorded. Plan of Treatment Reminders Order Date Submit Date Provider Last Modified By Organization Details Last Modified Time Details Appointments None recorded. Lab None recorded. Referral None recorded. Procedures None recorded. Surgeries None recorded. Imaging electrocar diogram 2019 [email or web address] Not available 0 17:49:24 Medication Orders aspirin 81 mg tablet,del ayed release 2019 INTERFACE [facility] [address], [place], [address], 0 17:49:31 atorvastat in 10 mg tablet 2019 INTERFACE [facility] [address], [place], [address], 0 17:49:30 quinapril 40 mg tablet 2019 INTERFACE [facility] [address] [place], [address], 0 17:49:33 Xarelto 20 mg tablet 2019 INTERFACE [facility] [address], [place], [address], 0 17:49:32 Patient TargetsNo targets recorded. Patient Instructions Encounter Date Encounter Id Patient Instructions Last Modified By Organization Details Last Modified Time 09/26/2019 [id number] type 2 diabetes: care instructions [email or web address] Not available 09/26/2019 17:49:23 high blood press ure: care instructions [email or web address] Not available 09/26/2019 17:49:24 learning about h igh blood pressure [email or web address] Not available 09/26/2019 17:49:24 electrical cardioversion: before your procedure [email or web address] Not available 09/26/2019 17:49:23 Electrophysiolog y (EP) Study: Before Your Procedure [email or web address] Not available 09/26/2019 17:49:23 high cholesterol : care instructions [email or web address] Not available 09/26/2019 17:49:23 deep vein thrombosis: care instructions [email or web address] Not available 09/26/2019 17:49:24 learning about d eep vein thrombosis [email or web address] Not available 09/26/2019 17:49:23 Exercise advised Low cholesterol diet advised Low sodium diet advised [email or web address] Not available 09/26/2019 17:22:31 Scribed by Skye Jaimes [facility]- [email or web address] Not available 09/26/2019 17:22:25 12/03/2019 [id number] Exercise advised Low cholesterol diet advised Low sodium diet advised [email or web address] Not available 12/04/2019 14:53:56 Scribed by Skye Hinson [facility]- [email or web address] Not available 12/04/2019 14:53:43 Reason for Referral None Reported. Results Created Date Observation Date Name Description Value Unit Range Abnormal Flag Note LastModifiedBy Organization Detail LastModifiedTime 09/26/19 20 09/26/2019 elect rocar diogr am Result EKG (09/25): NSR, NSST change s Not Available Kirk Barry MD [address], [place], [address], 09/26/2019 17:47:41 09/12/19 20 08/30/2019 US, echoc ardio gram No observ ation record ed. Not Available 2019 16:53:33 09/13/1908/30/2019 elect rocar diogr am No observ ation record ed. Not Available 2019 10:54:43 09/13/19 20 08/30/2019 XR, chest , 1 view No observ ation record ed. Not Available 2019 10:57:08 09/13/19 20 08/30/2019 nucle ar stres s test No observ ation record ed. Not Available 2019 10:59:41 09/13/19 20 08/30/2019 US, doppl er, venou s No observ ation record ed. Not Available 2019 11:03:25 09/27/1909/26/2019 elect rocar diogr am No observ ation record ed. [email or web address] Not Available 09/27 14:31:08 Result Notes None recorded. Problems Name Problem SNOMED Code Status Onset Date Resolution Date Notes Provider Name and Address Organization Details Recorded Time Atrial flutter 8484141 Active 2019 Gerri Courtney null, [place] - [facility] 0 16:54:43 Acute pancreatiti s 490805697 Active 2019 Tal[place] [facility] [place], [place] - [facility] 0 16:55:32 Essential hypertensio n 41507445 Active 2019 Talley [facility] [place] null, [place] - [facility] 0 16:55:47 Type 2 diabetes mellitus 55363732 Active 2019 hba1c 5 [facility], [place] - [facility] 0 17:40:04 Hyperlipide malick 23319762 Active 2019 Talley [facility] null, [place] - [facility] 0 16:56:12 Deep venous thrombosis 649363510 Active 2019 VQ scan negative for PE at time of DVT Kyle Higuera [facility], [place] - [facility] 0 17:11:04 Problem Notes None recorded. Procedures Surgical History Date Name Laterality Status Provider Name and Address Organization Details Recorded Time Caesarean Section completed Gerri Harper [place] - [facility] 09/22/2019 16:48:54 Cholecystectomy completed Gerri [place] - [facility] 09/22/2019 16:49:06 tonsillectomy completed Talley [facility] 09/22/2019 16:49:21 Imaging Results Imaging Date Name Status LastModified by Organization Details LastModified Time 08/30/2019 US, echocardiogram completed Inform ation not available 09/12/2019 16:53:33 08/30/2019 electrocardiogram completed Informa tion not available 09/13/2019 10:54:43 08/30/2019 XR, chest, 1 view completed Informa tion not available 09/13/2019 10:57:08 08/30/2019 nuclear stress test completed Infor mation not available 09/13/2019 10:59:41 08/30/2019 US, doppler, venous completed Infor mation not available 09/13/2019 11:03:25 09/26/2019 electrocardiogram completed [email or web address] Informa tion not available 09/28/2019 14:31:08 Procedure Notes None recorded. Medical Equipment None Reported. Allergies Allergen ID Allergen Name Allergen Category Reaction Reaction Severity Criticality Documentation Date Start Date Code Code System Note Provider Name and Address Organization Details Recorded Time 9998 Iodinated contrast media (substanc e) medicatio n Not available Not available Not available 09/22/2019 00182 2004 [facility] 0 16:45:28 9999 Product containin g penicilli n and antibioti c (product) medicatio n Not available Not available Not available 09/22/2019 61597 05 [facility] 0 16:45:44 Medications Name Sig Start Date Stop Date Status Note LastModified by Organization Details LastModified Time Colace 100 mg capsule Take 1 capsule every day by oral route. active Not Available Not Available No t Available atorvastatin 10 mg tablet Take 1 tablet every day by oral route. active Not Available Not Available No t Available Iron (ferrous sulfate) 325 mg (65 mg iron) tablet Take 1 tablet every day by oral route. active Not Available Not Available No t Available aspirin 81 mg tablet,delay ed release Take 1 tablet every day by oral route. 2019 active Not Available Not Available Not Avai lable quinapril 40 mg tablet Take 1 tablet every day by oral route. active Not Available Not Available No t Available nitrofuranto in monohydrate/ macrocrystal s 100 mg capsule 12/03 completed Not Available Not Available Not Available Vitamin C QD active Not Available Not Lisa ilable Not Available Januvia 100 mg tablet Take 1 tablet every day by oral route as directed . active Not Available Not Available No t Available Xarelto 20 mg tablet Take 1 tablet every day by oral route as directed . 2019 active Not Available Not Available Not Avai lable Xarelto DVT-PE Treatment 30-Day Starter 15 mg(42)-20 mg(9) tablet pack 09/25 completed Not Available Not Available Not Available Vitals Date Recorded Body height Body mass index (BMI) Body weight Heart rate Respiratory rate Oxygen saturation Oxygen saturation in Arterial blood by Pulse oximetry Systolic blood pressure Diastolic blood pressure Provider Name and Address Organization Details Last Updated DateTime 0 167.64 cm 30.2 kg/m2 39934.7 7 g 97 /min 18 /min 96 % 96 % 152 mm[Hg] 78 mm[Hg] ELIZABETH NICHOLAS [facility] 0 17:29:10 Date Recorded Body height Body temperature Respiratory rate Body mass index (BMI) Body weight Heart rate Oxygen saturation Oxygen saturation in Arterial blood by Pulse oximetry Systolic blood pressure Diastolic blood pressure Provider Name and Address Organization Details Last Updated DateTime 0 167.64 cm 98 [degF] 18 /min 30.5 kg/m2 82987.8 8 g 91 /min 97 % 97 % 140 mm[Hg] 80 mm[Hg] Barbra Artis [facility] 0 16:44:50 Social History Question Answer Notes LastModified by Organizat ion Details LastModified Time Tobacco Smoking Status Never Smoker Gerri zacarias [facility] 09/22/2019 16:51:12 What Is Your Level Of Alcohol Consumption? None Information not available 09/22/2019 What Is Your Level Of Caffeine Consumption? Occasional [email or web address] Information not available 12/03/2019 How Much Tobacco Do You Chew? None [email or web address] Information not available 12/03/2019 What Type Of Diet Are You Following? REGULAR [email or web address] Information not available 12/03/2019 Which Illicit Or Recreational Drugs Have You Used? None [email or web address] Information not available 12/03/2019 Do You Or Have You Ever Used E-cigarettes Or Vape? Never Used Electronic Cigarettes Information not available 09/22/2019 Live Alone Or With Others? With Others [email or web address] Information not available 12/03/2019 Marital Status [email or web address] Informatio n not available 12/03/2019 Do You Or Have You Ever Used Smokeless Tobacco? Never Used Smokeless Tobacco Information not available 09/22/2019 How Much Tobacco Do You Smoke? No Information not available 09/22/2019 General Stress Level Low [email or web address] Information not available 12/03/2019 How Many Years Have You Smoked Tobacco? 0 Information not available 09/22/2019 Sex: Unknown Functional Status Question Answer Note LastModified by Organizat ion Details LastModified Time What is your exercise level? Occasional [email or web address] Information not available 12/03/2019 Mental Status None recorded. Family History Relationship Description Onset Age of this Age Resolved Age Notes LastModified by Organization Details LastModified Time Mother Hypertensive disorder [email or web address] Not available 2019 16:49:52 Father Diabetes mellitus [email or web address] Not available 2019 16:50:04 Notes:Sibling : Kidney disea se , Multiple sclerosis Medical History Condition Response Diabetes Y Hyperlipidemia Y Atrial Fibrillation Y Hypertension Y Gynecological HistoryNo gynecological history recorded. Obstetrics History GPAL:G 0 P 0 0 0 0 Past Encounters Encounter ID Performer Location Encounter Start Date Encounter Closed Date Diagnosis/Indication Diagnosis SNOMED-CT Code Diagnosis ICD10 Code Diagnosis Note [id number] Kyle Lozano Office [address] [place] [address] 09/26/2019 16:44:17 09/26/2019 17:47:49 Atrial flutter 0487258 I48.92 on Xareltoin SR 09/26/2019 with PACs. Hyperlipidemia 29986405 E78.5 Needs to keep LDL less than 70, and HDL more than 40. Continue atorvastat in Will get fasting lipids for follow-up Essential hypertension 13842193 I10 Blood pressure is elevated today, but this is only one reading, will keep close follow up, and consider medication change if blood pressure is still elevated next visit. Type 2 henri betes mellitus without complication 851831032 E11.9 Treatment and evaluation by primary care doctor Discussed importance of adequate glycemic control to minimize cardiovasc ular disease progressio n, A1C goal of < 7% for type 2 DM. Deep venou s thrombosis 285152123 I82.409 on Xarelto [id number] Kirk Barry MD [place] [facility] [address] [place] [address] 12/03/2019 16:22:08 12/04/2019 10:01:24 Atrial flutter 9602640 I48.92 on XareltoRat e controlled without medication at this time in SR 09/26/2019 with PACs Hyperlipidemia 88515777 E78.5 Needs to keep LDL less than 70, and HDL more than 40. Continue atorvastat in Will get fasting lipids for follow-up Essential hypertension 72411179 I10 Controlled Type 2 henri betes mellitus without complication 336550324 E11.9 Treatment and evaluation by primary care doctor Discussed importance of adequate glycemic control to minimize cardiovasc ular disease progressio n, A1C goal of < 7% for type 2 DM. Deep venou s thrombosis 315267652 I82.409 Resolvedon Xarelto Health Concerns Section Related Observation LastModified by Organization Detai ls LastModified Time None Recorded Concern Status LastModified by Organization Details LastModified Time None Recorded Advance Directives Directive None Recorded Payers Encounter Date Sequence Insurance Name Policy Number Policy Soria Covered Member ID Soria Member ID Guarantor Name 09/26/2019 2 [place] [id number] Tracy Krueger [id number] Tracy Krueger 09/26/2019 1 [place] Tracy Krueger [id number] Tracy Krueger 12/03/2019 2 [place] [id number] Tracy Krueger [id number] Tracy Krueger 12/03/2019 1 [place] Tracy Krueger [id number] Tracy Krueger Notes Date Note Type Note Provider Name and Address Organization Details Recorded Time 09/26/2019 text/html 09/26/19 CC : aflutter fu HPI: 68 years-old Female with h/o Hyperlipidemia, Hypertension and Type 2 Diabetes mellitus is here for hospital follow up. She wasat [facility] in 08/30/19 because of jaundice/abdominal pain, was found to be in atrial flutter with rapid ventricular response secondary to SIRS/acute pancreatitis. BP usully lower She has been feeling well since her discharge. She is now on Xarelto for aflutter and DVT. She reports occasional palpitations. No chest pain. No shortness of breath at rest. No dyspnea on exertion. No orthopnea. No PND's. No dizziness. No syncope or near syncope. No leg swelling. No nausea and vomiting. No side effects from medications. Had venous doppler study done in 08/31/19 showed noncompressible deep venous thrombosis below the left knee in the left soleus vein. Had ECHO done in 08/30/19 showed normal LV systolic function, EF 60-65%, mild tricuspid valve regurgitation. Had normal pulmonary perfusion scan done in 08/30/19. Results from this visit, or from the past: 09/01/19 CMP: NA 137, K 3.5, CL 108, CO2 26, GLU 93, BUN 15, CR 0.70, AST 35, ALT 35 09/01/19 CBC: WBC 6.7, HGB 11.1, HCT 34.6, PLT 128 08/30/19 PT/INR: PT 14.2, INR 1.1 EKG (09/26/19): NSR, NSST changes Kyle Higuera [facility] 09/26/2019 17:49:31 12/03/2019 text/html 12/03/2019 CC : aflutter fu 69 year old Female with h/o Hyperlipidemia, Hypertension and Type 2 Diabetes mellitus is here for follow up. She was last seen in clinic 2 months ago on 09/26/2019 for hospital follow up. At that time she reported feeling well since her discharge. She is now on Xarelto for aflutter and DVT. She reports occasional palpitations but is otherwise asymptomatic. She was at [facility] in 08/30/19 because of jaundice/abdominal pain, was found to be in atrial flutter with rapid ventricular response secondary to SIRS/acute pancreatitis. No chest pain. No shortness of breath at rest. No dyspnea on exertion. No orthopnea. No PND's. No dizziness. No syncope or near syncope. No leg swelling. No nausea and vomiting. No side effects from medications. Had venous doppler study done in 08/31/19 showed noncompressible deep venous thrombosis below the left knee in the left soleus vein. Had ECHO done in 08/30/19 showed normal LV systolic function, EF 60-65%, mild tricuspid valve regurgitation. Had normal pulmonary perfusion scan done in 08/30/19. Results from this visit, or from the past: 09/01/19 CMP: NA 137, K 3.5, CL 108, CO2 26, GLU 93, BUN 15, CR 0.70, AST 35, ALT CBC: WBC 6.7, HGB 11.1, HCT 34.6, PLT 128 08/30/19 PT/INR: PT 14.2, INR 1.1 EKG (09/26/19): NSR, NSST changes 08/30/19 Pb Dop: Noncompressible deep venous thrombosis below the left knee in the left soleus vein. No deep venous thrombosis in the right lower limb. Moderate-sized right bakers cyst. 08/30/19 Nuclear Medicine Report: Normal pulmonary perfusion scan. 08/30/19 Chest XR: Mild lingular atelectasis. No other acute cardiopulmonary disease. 08/30/19 ECHO:Left ventricular systolic function is normal, estimated at 60-65%. Left ventricular chamber dimension is normal. Left atrial chamber dimension is moderately enlarged. Mild pulmonary hypertension, estimated pulmonary arterial systolic pressure is 42mmHg. There is mild tricuspid valve regurgitation. Kirk Barry MD [address] [place], [address], [place] [facility] 12/04/2019 14:55:55 OBGyn Episode No OBEpisode recorded.
--- OUTSIDE RECORDS SUMMARY | 2024-04-19 06:33 | XMS_ITS | Clinical Summary ---
Author Organization [facility] [address] Address [address] [place] [address] Care Team Providers Care Base Filler Operator Name Role Phone Cody Holt MD Primary Care Provider Allergies Active Allergy Reactions Criticality Noted Date [...] Noted Date Diagnosed Date Atrial flutter, paroxysmal (CMS/HCC) 05/20/2020 DVT (deep venous thrombosis) (CMS/HCC) Hypertension associated with diabetes 05/20/2020 Mixed diabetic hyperlipidemi a associated with type 2 diabetes mellitus (CMS/HCC) 05/20/2020 Chronic anticoagulation 05/20/2020 Palpitations 05/20/2020 Encounters Date Type Department Care Team Description 02/28/2024 Telephone [facility] Cardiology [address] [place] [address] Avtar Gray MD Med Refill from Last 3 Months Surgical History Surgery Date Site/Laterality Comments SECTION GALLBLADDER SURGERY CHOLECYSTECTOMY Medical History Medical History Date Comments Hypertension Overweight Diabetes mellitus (HCC) Pancreatitis Atrial flutter (CMS/HCC) (HCC) Family History Medical History Relation Name Comments Diabetes Father Omar Internal Bleeding Father Omar Hypertension Mother Kell Sepsis Mother Kell Kidney failure Sister Relation Name Status Comments Father Omar Mother Kell Sister Social History Tobacco Use Types Packs/Day Years Used Date Smoking Tobacco: Never Smokeless Tobacco: Never Personal Safety Answer Date Recorded Getting School Help Needed Not on file 03/14 Comments Unknown Sex and Gender Information Value Date Recorded Sex Assigned at Not on file Legal Sex Female 11:10 AM YARN SORTER Gender Identity Female 09/02/2020 4:54 PM CDT Sexual Orientation Straight 09/02/2020 4: 54 PM CDT Obstetrics History Last Filed Vital Signs Vital Sign Reading Time Taken Comments Blood Pressure 110/68 04/08/2023 1:22 PM YARN SORTER Pulse 79 04/08/2023 1:22 PM YARN SORTER Temperature - - Respiratory Rate - - Oxygen Saturation 97% 04/08/2023 1:22 PM YARN SORTER Inhaled Oxygen Concentration - - Weight 90 kg (198 lb 8 oz) 04/08/2023 1:22 PM CS T Height 167.6 cm (5' 6 ) 04/08/2023 1:22 PM YARN SORTER Body Mass Index 32.04 04/08/2023 1:22 PM YARN SORTER Plan of Treatment Health Maintenance Due Date Last Done Comments Albumin Creatinine Ratio, Urine 1949 Breast Cancer Screening-Mammogram 1949 Colon Cancer Screening-Colonoscopy 1949 Depression Screening 1949 Fall Risk Assessment 1949 Hemoglobin A1C 1949 Hepatitis C Screening 1949 Osteoporosis Screening-Bone Density Scan 1949 eGFR 1949 Dilated Eye Exam 1949 Foot Exam 1949 Pneumococcal vaccine 65+ (1 of 2 - PCV) 10/28/1955 Hepatitis B Screening 10/28/1967 Zoster Vaccine (1 of 2) 10/28/1999 Well Visit 65+ 2014 Influenza Vaccine (#1) 2023 Lipid Panel 04/08/2024 04/08/2023, 03/16, 05/20/2020 DTaP/Tdap/Td Vaccine (2 - Td or Tdap) 12/27/2026 Procedures Procedure Name Priority Date/Time Associated Diagnosis Comments POCT LIPID PANEL Routine 04/08/2023 3:39 PM YARN SORTER Mixed diabetic hyperlipidemia associated with type 2 diabetes mellitus (CMS/HCC) (HCC) from Last 3 Months or Most Recently Relevant to Health Maintenance Results * POCT lipid panel (04/08/2023 3:39 PM YARN SORTER) Cholesterol, POC 161 mg/dL Comment:GLU = 87 HDL, POC 50 mg/dL Triglycerides, POC 68 mg/dL LDL Cholesterol POC 98 mg/dL Chol/HDL Ratio, POC 2.0 Non-HDL Cholesterol, POC 112 mg/dL Cholesterol Total, POC 161 mg/dL Capillary blood 04/08/2023 3 :39 PM YARN SORTER Babak Martinez MD POINT OF CARE TEST ORDER DESHAWN Final Result from Last 3 Months or Most Recently Relevant to Health Maintenance Insurance MEDICARE MEDICARE [facility] Care Teams Base Filler Operator Relationship Specialty Start Date End Date Cody Holt MD PCP - General Family Practice 03/25/20
--- NOTE | 2024-04-19 07:57 | ECG_ITS ---
Test Date: 2024-04-19 08:02:57 Measurements Intervals [place] Rate: 77 P: 75 [place]: 191 QRS: 1 QRSD: 92 T: 38 QT: 392 QTc: 445 Interpretive Statements SINUS RHYTHM DELAYED PRECORDIAL R/S TRANSITION BASELINE ARTIFACT- I, II, III, AVR, AVL, AVF BORDERLINE ECG No previous ECG available for comparison Electronically Signed On 04-19-2024 08:50:08 BUSINESS DEVELOPMENT RECRUITER by Abdias Colon D.O.
[2024-04-19 08:16] LABS: Basophils Percent Auto 0.2 % (0.2-1.2); Hematocrit 37.3 % (37.0-47.0); Hemoglobin 12.1 g/dL (12.0-15.0); Immature Granulocyte Absolute 0.28 K/mm3 (0.00-0.031); Immature Granulocyte Percent A 1.6 % (0-0.5); Lymphocytes Absolute Auto 0.97 K/mm3 (0.9-3.2); Lymphocytes Percent Auto 5.7 % (18.3-44.2); Mean Corpuscular HGB Conc 32.4 g/dl (32-36); Mean Corpuscular Hemoglobin 25.5 pg (26-34); Mean Corpuscular Volume 78.5 fl (80-100); Mean Platelet Volume 9.6 fl (7.4-10.4); Monocytes Absolute Auto 1.4 K/mm3 (0.1-0.6); Monocytes Percent Auto 8.2 % (2.6-8.5); Neutrophils Absolute Auto 14.4 K/mm3 (1.3-6.7); Neutrophils Percent Auto 84.3 % (45.5-73.1); Platelet Count Result 257 k/mm3 (150-375); Red Blood Count 4.75 M/mm3 (4.2-5.4); Red Cell Distribution Width 17.3 % (11.5-14.5)
[2024-04-19 08:29] LABS: Alanine Aminotransferase 23 U/L (6-35); Albumin Level 3.6 g/dL (3.5-5.1); Alkaline Phosphatase 68 U/L (38-126); Anion Gap 16 mmol/L (4-12); Aspartate Amino Transferase 41 U/L (14-36); Bilirubin,Total 0.6 mg/dL (0.2-1.3); Blood Urea Nitrogen 88 mg/dL (7-17); Calcium 8.2 mg/dL (8.4-10.2); Carbon Dioxide 15 mmol/L (22-30); Chloride 100 mmol/L (98-107); Estimated CRCL calculation 15 ml/min; Estimated Glomerular Filt Rate 13; Glucose 118 mg/dL (65-110); Potassium 4.3 mmol/L (3.4-5.0); Sodium 131 mmol/L (137-145)
[2024-04-19] MEDS: SODIUM CHLORIDE 0.9% IV 1,000 ML 999 ML IV CONT ×3 (09:12→11:24)
--- OUTSIDE RECORDS SUMMARY | 2024-04-19 09:18 | XMS_ITS | Clinical Summary ---
Author Organization [facility] [address] Address [address] [place] [address] Care Team Providers Care After School Program Teacher Name Role Phone Cody Holt MD Primary [...] Type Department Care Team Description 02/28/2024 Telephone [facility] Cardiology [address] [place] [address] Avtar Gray MD Med Refill from Last 3 Months Surgical History Surgery Date Site/Laterality Comments SECTION GALLBLADDER SURGERY CHOLECYSTECTOMY Medical History Medical History Date Comments Hypertension Overweight Diabetes mellitus (HCC) Pancreatitis Atrial flutter (CMS/HCC) (HCC) Family History Medical History Relation Name Comments Diabetes Father Oamr Internal Bleeding Father Omar Hypertension Mother Kell [...] on file Legal Sex Female 11:10 AM FIELD ASSEMBLY SUPERVISOR Gender Identity Female 09/02/2020 4:54 PM CDT Sexual Orientation Straight 09/02/2020 4: 54 PM CDT Obstetrics History Last Filed Vital Signs Vital Sign Reading Time Taken Comments Blood Pressure 110/68 04/08/2023 1:22 PM FIELD ASSEMBLY SUPERVISOR Pulse 79 04/08/2023 1:22 PM FIELD ASSEMBLY SUPERVISOR Temperature - - Respiratory Rate - - Oxygen Saturation 97% 04/08/2023 1:22 PM FIELD ASSEMBLY SUPERVISOR Inhaled Oxygen Concentration - - Weight 90 kg (198 lb 8 oz) 04/08/2023 1:22 PM CS T Height 167.6 cm (5' 6 ) 04/08/2023 1:22 PM FIELD ASSEMBLY SUPERVISOR Body Mass Index 32.04 04/08/2023 1:22 PM FIELD ASSEMBLY SUPERVISOR Plan of Treatment Health Maintenance Due Date [...] POCT LIPID PANEL Routine 04/08/2023 3:39 PM FIELD ASSEMBLY SUPERVISOR Mixed diabetic hyperlipidemia associated with type 2 diabetes mellitus (CMS/HCC) (HCC) from Last 3 Months or Most Recently Relevant to Health Maintenance Results * POCT lipid panel (04/08/2023 3:39 PM FIELD ASSEMBLY SUPERVISOR) Cholesterol, POC 161 mg/dL Comment:GLU = 87 HDL, POC 50 mg/dL Triglycerides, POC 68 mg/dL LDL Cholesterol POC 98 mg/dL Chol/HDL Ratio, POC 2.0 Non-HDL Cholesterol, POC 112 mg/dL Cholesterol Total, POC 161 mg/dL Capillary blood 04/08/2023 3 :39 PM FIELD ASSEMBLY SUPERVISOR Babak Martinez MD POINT OF CARE TEST ORDER DESHAWN Final Result from Last 3 Months or Most Recently Relevant to Health Maintenance Insurance MEDICARE MEDICARE [facility] Care Teams After School Program Teacher Relationship Specialty Start Date End Date Cody Holt MD PCP - General Family Practice 03/25/20
--- OUTSIDE RECORDS SUMMARY | 2024-04-19 09:18 | XMS_ITS | Referral Summary ---
Author Organization [facility] [address] [facility] [address] Address [address] [place] [address] Care Team Providers Care Director Bioinformatics Name Role Phone Cody Holt MD Primary Care Provider Encounters Date Type Department Care Team Description 02/28/[address] [facility] Cardiology [address] [place] [address] Avtar Gray MD Med Refill [...] Noted Date Diagnosed Date Atrial flutter, paroxysmal ([facility]) 05/20/2020 DVT (deep venous thrombosis) ([facility]) Hypertension associated with diabetes 05/20/2020 Mixed diabetic hyperlipidemi a associated with type 2 diabetes mellitus ([facility]) 05/20/2020 Chronic anticoagulation 05/20/2020 Palpitations 05/20/2020 Social History Tobacco Use Types Packs/Day Years Used Date Smoking Tobacco: Never Smokeless Tobacco: Never Personal Safety Answer Date Recorded Getting School Help Needed Not on file 03/14 Comments Unknown Sex and Gender Information Value Date Recorded Sex Assigned at Not on file Legal Sex Female 11:10 AM ZINC CHLORIDE OPERATOR Gender Identity Female 09/02/2020 4:54 PM CDT Sexual Orientation Straight 09/02/2020 4: 54 PM CDT Last Filed Vital Signs Vital Sign Reading Time Taken Comments Blood Pressure 110/68 04/08/2023 1:22 PM ZINC CHLORIDE OPERATOR Pulse 79 04/08/2023 1:22 PM ZINC CHLORIDE OPERATOR Temperature - - Respiratory Rate - - Oxygen Saturation 97% 04/08/2023 1:22 PM ZINC CHLORIDE OPERATOR Inhaled Oxygen Concentration - - Weight 90 kg (198 lb 8 oz) 04/08/2023 1:22 PM CS T Height 167.6 cm (5' 6 ) 04/08/2023 1:22 PM ZINC CHLORIDE OPERATOR Body Mass Index 32.04 04/08/2023 1:22 PM ZINC CHLORIDE OPERATOR Plan of Treatment Not on file Procedures Procedure Name Priority Date/Time Associated Diagnosis Comments POCT LIPID PANEL Routine 04/08/2023 3:3 9 PM ZINC CHLORIDE OPERATOR Mixed diabetic hyperlipidemia associated with type 2 diabetes mellitus ([facility]) ([facility]) from Last 3 Months or Most Recently Relevant to Health Maintenance Results * POCT lipid panel (04/08/2023 3:39 PM ZINC CHLORIDE OPERATOR) Cholesterol, POC 161 mg/dL Comment:GLU = 87 HDL, POC 50 mg/dL Triglycerides, POC 68 mg/dL LDL Cholesterol POC 98 mg/dL Chol/HDL Ratio, POC 2.0 Non-HDL Cholesterol, POC 112 mg/dL Cholesterol Total, POC 161 mg/dL Capillary blood 04/08/2023 3 :39 PM ZINC CHLORIDE OPERATOR Babak Martinez MD POINT OF CARE TEST ORDER DESHAWN Final Result from Last 3 Months or Most Recently Relevant to Health Maintenance Insurance MEDICARE MEDICARE [facility] Care Teams Director Bioinformatics Relationship Specialty Start Date End Date Cody Holt MD PCP - General Family Practice 03/25/20
[2024-04-19 09:34] LABS: Lactic Acid Reflex 1.4 mmol/L (0.7-2.0)
[2024-04-19 09:37] LABS: Lipase 153 U/L (23-300); Magnesium 2.2 mg/dL (1.6-2.3)
[2024-04-19 09:39] LABS: INR 1.7; Prothrombin Time 20.8 Seconds (11.1-14.7)
[2024-04-19 09:40] LABS: Partial Thromboplastin Time 38.1 Seconds (22.3-36.8)
[2024-04-19 09:59] LABS: Influenza A QL RT-PCR Positive (Negative); Influenza B QL RT-PCR Negative (Negative); RSV RNA, RT-PCR Negative (Negative); SARS-CoV-2 RNA PCR Negative (Negative)
--- NOTE | 2024-04-19 10:17 | ED.GENADULT ---
HPI - General Adult General Chief complaint: Nausea/Vomiting/Diarrhea Stated complaint: cough, diarrhea, nausea Time Seen by Provider: 04/19/24 08:54 History of Present Illness HPI narrative: Patient is a 73-year-old female who presents emergency department with chief complaint of nausea and diarrhea patient also reports she has had a cough multiple family members have had influenza the patient reports she feels extremely weak today Related Data Home Medications ?Medication ?Instructions ?Recorded ?Confirmed ?Last Taken ?Type ascorbic acid (vitamin C) 1,000 mg 1 gm PO DAILY 05/25/19 04/19/24 04/19/24 History tablet ferrous sulfate 325 mg (65 mg 325 mg PO .QOD 05/25/19 04/19/24 04/18/24 History iron) tablet (Feosol) metoprolol succinate 25 mg 25 mg PO BID 10/03/20 04/19/24 04/19/24 History tablet,extended release 24 hr rivaroxaban 20 mg tablet (Xarelto) 20 mg PO BID 07/18/23 04/19/24 04/18/24 History Allergies Allergy/AdvReac Type Severity Reaction Status Date / Time clindamycin Allergy Unknown Unknown Verified 01/18/24 10:07 Iodinated Contrast Media Allergy Unknown Unknown Verified 01/18/24 10:07 Penicillins Allergy Unknown Unknown Verified 01/18/24 10:07 Sulfa (Sulfonamide Allergy Rash Verified 01/18/24 10:07 Antibiotics) Contrast Media Allergy Unknown SWELLING Uncoded 01/18/24 10:07 AND ITCHING OPTICELL Allergy Unknown SWELLING Uncoded 01/18/24 10:07 Review of Systems Review of Systems: A 10 system review of systems was completed on the patient and is negative except for what is stated in the HPI. Nursing and ancillary documentation was reviewed. [facility] Past Medical History Medical History Atrial flutter, paroxysmal (~08/2019) Chronic anticoagulation Type 2 diabetes mellitus with chronic kidney disease Atrial flutter with rapid ventricular response (~08/2019) Renal stone Elevated troponin Transaminitis Acute pancreatitis (~08/2019) Severe sepsis (~08/2019) JACKELIN (iron deficiency anemia) Hidradenitis Hypertension Hyperlipidemia Surgical History Surgical History History of cholecystectomy (~07/2014) History of tonsillectomy History of section Family History Family History Mother Hypertension Father Diabetes mellitus Family history of diabetes mellitus in first degree relative Sibling Kidney disease Multiple sclerosis Social History Social History Social History: 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 Her daughter and grandchildren live nearby, she sees them regularly. Smoking status: Never smoker Second hand tobacco smoke exposure: No Alcohol intake: never Substance use: never Substance use type: does not use Lack of Transportation: No Lack of Food: Never True Current Housing: I Have Housing Concerned About Future Housing: No Difficulty Paying Gas/Electric Bills: No Difficulty Paying for Meds: No Currently Unemployed: No Education: High School Diploma/GED Difficulty w/ Childcare or Family Care: No Living arrangements: with family Occupation/Education: retired Gender identity (if verbalized by the patient): Female Spiritual care concerns: No Agree to blood products: Yes Exam Narrative: GENERAL: Well-appearing, well-nourished, and in no acute distress. HEAD: Normocephalic, atraumatic. EYES: PERRLA and EOMI. ENT: Nares clear, no rhinorrhea or epistaxis. Mucous membranes moist. NECK: Supple. CHEST: Clear to auscultation. No respiratory distress. HEART: Regular rate and rhythm. No murmur heard. Normal peripheral pulses. ABDOMEN: Soft, nontender, nondistended, normal active bowel sounds. EXTREMITIES: Normal range of motion. No edema. SKIN: Warm, dry, no rash. NEURO: No focal deficits. Alert and oriented x3. PSYCH: Normal mood and affect. Course Course Emergency Course: Differential diagnosis includes pneumonia, intra-abdominal infection, ureterolithiasis, COVID flu, RSV, acute kidney injury Laboratory studies showed a creatinine of 3.45 the patient was hydrated received 3 L of fluid in the emergency department. Chest x-ray showed evidence of pneumonia the patient is positive for influenza Patient was started on antibiotics Case was discussed with the hospitalist and receive further care in the inpatient 7 Vital Signs Vital signs: Vital Signs Temperature 36.2 C L 04/19/24 06:33 Pulse Rate 83 04/19/24 06:33 Respiratory Rate 19 04/19/24 06:33 Blood Pressure 106/49 L 04/19/24 06:33 Pulse Oximetry 94 04/19/24 06:33 Oxygen Delivery Room Air 04/19/24 06:33 Temperature 36.4 C 04/19/24 07:50 Pulse Rate 98 04/19/24 12:45 Respiratory Rate 16 04/19/24 12:45 Blood Pressure 109/49 L 04/19/24 12:39 Pulse Oximetry 93 04/19/24 12:45 Oxygen Delivery Room Air 04/19/24 06:33 Medical Decision Making Vital Signs Vital Signs: Vital Signs Temperature 36.2 C L 04/19/24 06:33 Pulse Rate 83 04/19/24 06:33 Respiratory Rate 19 04/19/24 06:33 Blood Pressure 106/49 L 04/19/24 06:33 Pulse Oximetry 94 04/19/24 06:33 Oxygen Delivery Room Air 04/19/24 06:33 Temperature 36.4 C 04/19/24 07:50 Pulse Rate 98 04/19/24 12:45 Respiratory Rate 16 04/19/24 12:45 Blood Pressure 109/49 L 04/19/24 12:39 Pulse Oximetry 93 04/19/24 12:45 Oxygen Delivery Room Air 04/19/24 06:33 Lab Data 04/19/24 08:11 04/19/24 08:11 Labs: Lab Results 04/19/24 04/19/24 04/19/24 Range/Units 08:11 09:10 10:41 WBC 17.0 H (4.5-10.0) K/mm3 RBC 4.75 (4.2-5.4) M/mm3 Hgb 12.1 (12.0-15.0) g/dL Hct 37.3 (37.0-47.0) % MCV 78.5 L (80-100) fl MCH 25.5 L (26-34) pg MCHC 32.4 (32-36) g/dl RDW 17.3 H (11.5-14.5) % Plt Count 257 (150-375) k/mm3 MPV 9.6 (7.4-10.4) fl Immature Gran % (Auto) 1.6 H (0-0.5) % Neut % (Auto) 84.3 H (45.5-73.1) % Lymph % (Auto) 5.7 L (18.3-44.2) % [place] % (Auto) 8.2 (2.6-8.5) % Eos % (Auto) 0.0 (0-4.4) % Baso % (Auto) 0.2 (0.2-1.2) % Lymph # (Auto) 0.97 (0.9-3.2) K/mm3 [place] # (Auto) 1.4 H (0.1-0.6) K/mm3 Eos # (Auto) 0.0 (0-0.3) K/mm3 Baso # (Auto) 0.0 (0.0-0.1) K/mm3 Abs Immat Gran (auto) 0.28 H (0.00-0.031) K/mm3 Absolute Neuts (auto) 14.4 H (1.3-6.7) K/mm3 Absolute Nucleated RBC 0.000 (0.0-0.012) K/mm3 Nucleated RBC % 0.0 (0.0-0.2) % PT 20.8 H (11.1-14.7) Seconds INR 1.7 APTT 38.1 H (22.3-36.8) Seconds Sodium 131 L (137-145) mmol/L Potassium 4.3 (3.4-5.0) mmol/L Chloride 100 (98-107) mmol/L Carbon Dioxide 15 L (22-30) mmol/L Anion Gap 16 H (4-12) mmol/L BUN 88 H D (7-17) mg/dL Creatinine 3.45 H (0.7-1.0) mg/dL Estim Creat Clear Calc 15 ml/min Estimated GFR 13 L (59 - ) Glucose 118 H (65-110) mg/dL Lactic Acid 1.4 (0.7-2.0) mmol/L Calcium 8.2 L (8.4-10.2) mg/dL Magnesium 2.2 (1.6-2.3) mg/dL Total Bilirubin 0.6 (0.2-1.3) mg/dL AST 41 H (14-36) U/L ALT 23 (6-35) U/L Alkaline Phosphatase 68 (38-126) U/L Total Protein 8.0 (6.3-8.2) g/dL Albumin 3.6 (3.5-5.1) g/dL Lipase 153 (23-300) U/L Procalcitonin 2.5 ng/mL Urine Color Yellow (Yellow) Urine Appearance Turbid H (Clear) Urine pH 5.0 (5.0-9.0) Ur Specific [place] 1.015 (1.001-1.035) Urine Protein 1+ H (Negative) mg/dL Urine Glucose (UA) Negative (Negative) mg/dL Urine Ketones Trace H (Negative) mg/dL Ur Blood (Man) 2+ H (Negative) Urine Nitrate Negative (Negative) Urine Bilirubin Negative (Negative) Urine Urobilinogen 0.2 (<2.0) mg/dL Leukocyte Esterase Rfl 1+ H (Negative) JULIANA/UL Urine RBC 21-50 H (0-2) /hpf Urine WBC 6-10 H (0-3) /hpf Ur Squamous Epith Cells Moderate (Few) /hpf Amorphous Sediment Few H (None) Urine Bacteria Rare /hpf Urine Casts 11-20 Influenza A (RT-PCR) Positive A (Negative) Influenza B (RT-PCR) Negative (Negative) RSV (RT-PCR) Negative (Negative) SARS-CoV-2 RNA (RT-PCR) Negative (Negative) Critical Care Time Critical Care Time Critical Care Time: Yes Total Critical Care Time: 35 Discharge Plan Discharge Clinical Impression: Pneumonia, Influenza, Acute kidney injury Patient Disposition: Still a Patient Condition: Stable Patient Language: Argentine Prescriptions: No Action ascorbic acid (vitamin C) 1,000 mg tablet 1 gm PO DAILY ferrous sulfate [Feosol] 325 mg (65 mg iron) tablet 325 mg PO .QOD Xarelto 20 mg tablet 20 mg PO BID Januvia 50 mg tablet 50 mg PO DAILY Qty: 90 1RF (DME) Contour Next Test Strips Strip See Rx Instructions .ROUTE .MEDSUPPLY Qty: 100 2RF Rx Instructions: Use to check blood sugar daily metoprolol succinate 25 mg tablet extended release 24 hr 25 mg PO BID (DME) blood-glucose meter Kit See Rx Instructions .ROUTE .MEDSUPPLY Qty: 1 0RF Rx Instructions: use to check blood sugar once a day lisinopril 20 mg tablet See Rx Instructions .ROUTE .COMPLEX Qty: 90 1RF Dose Instruction: Take 1 tablet by mouth once daily Rx Instructions: Take 1 tablet by mouth once daily atorvastatin 10 mg tablet 10 mg PO DAILY Qty: 90 1RF Follow-up/Referrals: Diane Holt MD [Primary Care Provider] - Time of Disposition: 13:18
--- NOTE | 2024-04-19 10:18 | PC.NURSE ---
Patient provided urine sample but was rejected by lab due to amount. Patient unable to provide another sample at this time. IVF infusing, pt reminded to straighten arm for quicker infusion.
[2024-04-19 10:22] LABS: Procalcitonin 2.5 ng/mL
--- NOTE | 2024-04-19 10:35 | PC.NURSE ---
Patient ambulatory with assistance to BR to provide urine sample.
[2024-04-19 11:29] LABS: Add Urine Microscopic? YES; Appearance Urine Turbid (Clear); Bacteria Urine Rare /hpf; Bilirubin Urine Negative (Negative); Blood Urine 2+ (Negative); Glucose Urine UA Negative (Negative); Ketones Urine Trace mg/dL (Negative); Leukocyte Esterase Ur 1+ LEU/UL (Negative); Nitrate Urine Negative (Negative); Protein Urine 1+ mg/dL (Negative); RBC Urine 21-50 /hpf (0-2); Specific Grav Ur 1.015 (1.001-1.035); Squamous Epithelial Cell Urine Moderate /hpf (Few); Urobilinogen Urine 0.2 mg/dL (<2.0)
[2024-04-19 11:32] LABS: Amorphous Sediment Urine Few; Color Urine Yellow (Yellow)
--- NOTE | 2024-04-19 13:54 | P.HP_ITS ---
H&P: HPI History of Present Illness Date/Time: 04/19/24 13:54 Chief Complaint: Nausea, Diarrhea, Cough Narrative: 73 y/o F presents here with nausea, diarrhea, and cough with PMH of paroxysmal atrial flutter, chronic anticoagulation, diabetes, iron deficiency anemia, hydradenitis, hypertension, and hyperlipidemia. The patient presents here from home via personal vehicle for further evaluation of nausea without vomiting, diarrhea, and cough. She reports onset of symptoms on 04/13. Cough has been productive. She also reports accompanying generalized weakness, chills, poor PO intake for the last 5 days, and decreased urine output. Last urine output was this morning and a very small amount (described as a few drips). Has since been given fluids and was able to pee a more normal urine volume. Denies dysuria, fever, body aches, or shortness of breath. She reports multiple since contacts in her immediate family that have been diagnosed with influenza. She reports no previous known hx of CKD. Initial VS at presentation: 97.1? F, HR 83, RR 19, 106/49, and 94% on RA. ED workup showed: WBC 17.0, no anemia, INR 1.7, sodium 131, creatinine 3.45 and GFR 13 (previously 1.0 and GFR 54 on 01/14/2024), lactic 1.4, and UA suspicious for UTI (may be contaminant, moderate epithelial cells), and patient tested positive for influenza A. CXR showed airspace opacities in the lung bases, consistent with atelectasis versus pneumonia. CT of the abdomen/pelvis showed bibasilar lung disease most suspicious for pneumonia, no acute intra abdominal/pelvic process, unchanged large right staghorn calculus buttock hydronephrosis, chronic left hip rectocutaneous fistula. Review of Systems Review of Systems: All systems reviewed & are unremarkable except as noted in HPI and below [facility] Past Medical History Medical History Hyperlipidemia JACKELIN (iron deficiency anemia) History of deep venous thrombosis (DVT) of distal vein of left lower extremity (~08/2019) Chronic anticoagulation Atrial flutter, paroxysmal (~08/2019) Type 2 diabetes mellitus with chronic kidney disease Atrial flutter with rapid ventricular response (~08/2019) Renal stone Transaminitis Acute pancreatitis (~08/2019) Hidradenitis Hypertension Surgical History Surgical History History of cholecystectomy (~07/2014) History of tonsillectomy History of section Family History Family History Mother Hypertension Father Diabetes mellitus Family history of diabetes mellitus in first degree relative Sibling Kidney disease Multiple sclerosis Social History Social History Social History: 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 Her daughter and grandchildren live nearby, she sees them regularly. Smoking status: Never smoker Second hand tobacco smoke exposure: No Alcohol intake: never Substance use: never Substance use type: does not use Do You Feel Safe in your Home?: Yes Lack of Transportation: No Lack of Food: Never True Current Housing: I Have Housing Concerned About Future Housing: No Difficulty Paying Gas/Electric Bills: No Difficulty Paying for Meds: No Currently Unemployed: No Education: High School Diploma/GED Difficulty w/ Childcare or Family Care: No Living arrangements: with family Occupation/Education: retired Gender identity (if verbalized by the patient): Female Spiritual care concerns: No Agree to blood products: Yes Meds Home Medications and Allergies Home Medications ?Medication ?Instructions ?Recorded ?Confirmed ?Type blood-glucose meter #1 ea 04/26/19 04/19/24 Rx ascorbic acid (vitamin C) 1,000 mg 1 gm PO DAILY 05/25/19 04/19/24 History tablet ferrous sulfate 325 mg (65 mg 325 mg PO .QOD 05/25/19 04/19/24 History iron) tablet (Feosol) metoprolol succinate 25 mg 25 mg PO BID 10/03/20 04/19/24 History tablet,extended release 24 hr rivaroxaban 20 mg tablet (Xarelto) 20 mg PO BID 07/18/23 04/19/24 History lisinopril 20 mg tablet See Rx Instructions .Route 10/28/23 04/19/24 Rx .COMPLEX #90 tabs atorvastatin 10 mg tablet 10 mg PO DAILY #90 tabs 12/28/23 04/19/24 Rx blood sugar diagnostic (Contour #100 ea 01/18/24 04/19/24 Rx Next Test Strips) sitagliptin phosphate 50 mg tablet 50 mg PO DAILY #90 tabs 01/18/24 04/19/24 Rx (Januvia) Allergies Allergy/AdvReac Type Severity Reaction Status Date / Time clindamycin Allergy Unknown Unknown Verified 01/18/24 10:07 Iodinated Contrast Media Allergy Unknown Unknown Verified 01/18/24 10:07 Penicillins Allergy Unknown Unknown Verified 04/19/24 15:52 Sulfa (Sulfonamide Allergy Rash Verified 01/18/24 10:07 Antibiotics) Contrast Media Allergy Unknown SWELLING Uncoded 01/18/24 10:07 AND ITCHING OPTICELL Allergy Unknown SWELLING Uncoded 01/18/24 10:07 Vital Signs Vital Signs - 24 hr 04/19/24 06:33 04/19/24 07:50 04/19/24 07:55 Temperature 97.1 F L 97.6 F Pulse Rate 83 81 Respiratory Rate 19 18 Blood Pressure 106/49 L 92/80 L Pulse Oximetry 94 98 Oxygen Delivery Room Air 04/19/24 08:40 04/19/24 10:17 04/19/24 10:45 Temperature Pulse Rate 82 82 Respiratory Rate 20 24 H Blood Pressure 90/60 L 85/54 L 108/58 L Pulse Oximetry 98 95 Oxygen Delivery 04/19/24 11:09 04/19/24 12:00 04/19/24 12:02 Temperature Pulse Rate 80 85 86 Respiratory Rate 17 17 20 Blood Pressure 103/55 L 98/58 L Pulse Oximetry 100 99 95 Oxygen Delivery 04/19/24 12:39 04/19/24 12:45 Temperature Pulse Rate 100 98 Respiratory Rate 20 16 Blood Pressure 109/49 L Pulse Oximetry 92 93 Oxygen Delivery Exam Const: General: comfortable and no acute distress Other: , female, modestly ill-appearing. Recumbent in ED stretcher. HENMT: Face/Nose/Sinus: Normal nares present Mouth: Yes dry mucous membranes Eyes: General: appearance normal, both eyes and all related structures Sclera: sclerae normal Pupils: Equal, round and reactive pupils present EOM: EOMs intact bilaterally Resp: Other: coarse lung sounds in mid and lower lungs bilaterally. bibasilar crackles. +expiratory wheeze. -tachypnea/increased WOB. Cardio: Rate: regular rate Rhythm: regular rhythm Other: S1-S2 present without murmur, rub, ectopy Skin: General skin exam: normal color and no rashes or lesions noted Wounds: no wounds Neuro: Speech: normal speech Motor exam (neuro): 5/5 motor strength present throughout Sensory Exam: normal sensation Other: A&O x4 Extrem: General: normal to inspection Psych: Mental Status: mental status grossly normal Affect: normal affect Other: Good insight and judgment, pleasant H&P: Results Labs Labs: Short CBC 04/19/24 Range/Units 08:11 WBC 17.0 H (4.5-10.0) K/mm3 Hgb 12.1 (12.0-15.0) g/dL Hct 37.3 (37.0-47.0) % Plt Count 257 (150-375) k/mm3 BMP 04/19/24 08:11 Sodium 131 L Potassium 4.3 Chloride 100 Carbon Dioxide 15 L BUN 88 H D Creatinine 3.45 H Glucose 118 H Calcium 8.2 L Liver Function 04/19/24 Range/Units 08:11 Total Bilirubin 0.6 (0.2-1.3) mg/dL AST 41 H (14-36) U/L ALT 23 (6-35) U/L Alkaline Phosphatase 68 (38-126) U/L Albumin 3.6 (3.5-5.1) g/dL Urine 04/19/24 Range/Units 10:41 Urine Color Yellow (Yellow) Urine Appearance Turbid H (Clear) Urine pH 5.0 (5.0-9.0) Ur Specific [place] 1.015 (1.001-1.035) Urine Protein 1+ H (Negative) mg/dL Urine Glucose (UA) Negative (Negative) mg/dL Assessment and Plan Assessment and plan (1) Acute kidney injury: Code(s): N17.9 - Acute kidney failure, unspecified Status: Acute Assessment and Plan: - creatinine 3.45 and GFR 13, previously 1.0 and GFR 54 on 01/14/2024 - CT abd/pelvis: 1. Bibasilar lung disease most suspicious for pneumonia. No acute intra- abdominal/pelvic process. 2. Unchanged large right staghorn calculus without hydronephrosis. 3. Chronic left recto cutaneous fistula. - IV fluids: 3L bolus -> 125 mL/hr - patient has had nausea (very poor PO intake over the last 5+ days) and diarrhea for the last few days (primarily on Tuesday), suspect injury secondary to hypovolemia. Plan for rehydration in the next 24 hours, if no improvement consider Nephrology consultation and further workup. - trend renal function - trend electrolytes, correct as needed (2) Pneumonia: Qualifiers: Pneumonia type: due to influenza A virus Qualified Code(s): J10.00 - Influenza due to other identified influenza virus with unspecified type of pneumonia Code(s): J18.9 - Pneumonia, unspecified organism Status: Acute Assessment and Plan: - did not increase SIRS criteria, WBC only. However blood cultures obtained on 04/18, follow. Lactic 1.4. - CXR: Airspace opacities at the lung bases, consistent with atelectasis versus pneumonia. - risk factors and complicating factors: Flu - started on CAP tx: ceftriaxone and azithromycin on 04/19 - MRSA PCR and sputum culture - Viral PCR: +influenza - no supplemental O2 requirement at this time (3) Influenza: Code(s): J11.1 - Influenza due to unidentified influenza virus with other respiratory manifestations Status: Acute Assessment and Plan: - tested positive for influenza A on 04/19 - CXR concerning for bibasilar pneumonia - patient out of the window for Tamiflu, discontinued - supportive care: Tylenol p.r.n. Mucinex ashutosh DuoNeb p.r.n. Tessalon Perles p.r.n. Lozenge p.r.n. - monitor WBC/CBC - currently not requiring increased supplemental O2 (4) Type 2 diabetes mellitus without complications: Qualifiers: Diabetes mellitus terminal clerk insulin use: without terminal clerk use Qualified Code(s): E11.9 - Type 2 diabetes mellitus without complications Code(s): E11.9 - Type 2 diabetes mellitus without complications Status: Chronic Assessment and Plan: - hypoglycemia protocol - POC blood glucose ACHS - home medication: hold Januvia - correct regimen ordered - high dose TIDWM, based off BMI - A1C 5.4% on 01/14/2024 (5) Hypertension: Qualifiers: Hypertension type: essential hypertension Qualified Code(s): I10 - Essential (primary) hypertension Code(s): I10 - Essential (primary) hypertension Status: Chronic Assessment and Plan: - chronic, current range: 85/54 to 106/49 - hold home medications: Lisinopril - monitor Plan Diet: Heart healthy GI Prophylaxis: Not currently indicated DVT Prophylaxis: Xarelto Lines: Peripheral Code Status: Full code Quality VTE Prophylaxis VTE prophylaxis: pharmacologic ordered Hospitalist MIPS Advance Care Plan I have confirmed that the patient's Advanced Care Plan is present, code status is documented, or surrogate decision maker is listed in patient medical record.: Yes Medication Reconciliation I have utilized all available resources to obtain, update and review the patients current medications (includes all prescriptions, OTC, herbals, cannabis, and nutritional supplements).: Yes
[2024-04-19] MEDS: AZITHROMYCIN 500 MG/NS 250 ML 500 MG/250 ML BAG 250 MG IVPB (15:34)
--- NOTE | 2024-04-19 15:45 | ADMGEN ---
This patient, Tracy Krueger, was admitted to 3 [facility] Surg Room 300-01. Patient/family oriented to hospital policies and general routines including ID bracelet, bed and alarms, visiting hours, pain management, procedures, bathroom and other care routines, personal items, smoking policy, room service/diet, and visiting hours. Information on how to activate the Rapid Response Team has been discussed. Patient/Family are encouraged to report perceived risks to care and to ask questions if they do not understand what they are told or what they should do.
[2024-04-19] MEDS: guaiFENesin 12 HR 600 MG TABCR PO ×2 (16:05→20:02)
[2024-04-19] MEDS: SODIUM CHLORIDE 0.9% IV 1,000 ML 150 ML IV CONT (16:05)
[2024-04-19 16:09] LABS: MRSA (PCR) NOT DETECTED (NOT DETECTE)
[2024-04-19 17:00] LABS: Glucose Point of Care 77 mg/dl (65-105)
[2024-04-19] MEDS: RIVAROXABAN 20 MG TABLET PO (18:13)
[2024-04-19] MEDS: METOPROLOL SUCCINATE EXT REL 25 MG TABCR PO (20:02)
[2024-04-19 21:03] LABS: Glucose Point of Care 74 mg/dl (65-105)
[2024-04-20] VITALS (11 sets, daily range): BP systolic 108–129; BP diastolic 56–69; PULSE 70–96; RESP 20–24; TEMP 36.1–36.4; O2SAT 97–100
[2024-04-20] MEDS: SODIUM CHLORIDE 0.9% IV 1,000 ML 150 ML IV CONT ×3 (00:32→17:08)
--- NOTE | 2024-04-20 05:19 | ECG_ITS ---
Test Date: 2024-04-20 05:34:15 Measurements Intervals [place] Rate: 83 P: 70 NM: 196 QRS: -1 QRSD: 94 T: 37 QT: 377 QTc: 445 Interpretive Statements SINUS RHYTHM WITH ATRIAL COUPLET LOW QRS VOLTAGE IN PRECORDIAL LEADS CANNOT R/O SEPTAL INFARCT, AGE INDETERMINATE ABNORMAL ECG Compared to ECG 04/19/2024 08:02:57 NO SIGNIFICANT CHANGE Electronically Signed On 04-20-2024 06:42:56 PROCESS IMPROVEMENT SPECIALIST by Abdias Colon D.O.
[2024-04-20 07:47] LABS: Basophils Percent Auto 0.1 % (0.2-1.2); Hematocrit 32.2 % (37.0-47.0); Hemoglobin 10.3 g/dL (12.0-15.0); Immature Granulocyte Absolute 0.05 K/mm3 (0.00-0.031); Immature Granulocyte Percent A 0.7 % (0-0.5); Lymphocytes Percent Auto 9.2 % (18.3-44.2); Mean Corpuscular Hemoglobin 25.6 pg (26-34); Mean Corpuscular Volume 80.1 fl (80-100); Mean Platelet Volume 9.6 fl (7.4-10.4); Monocytes Absolute Auto 0.6 K/mm3 (0.1-0.6); Monocytes Percent Auto 8.3 % (2.6-8.5); Neutrophils Absolute Auto 6.2 K/mm3 (1.3-6.7); Neutrophils Percent Auto 81.7 % (45.5-73.1); Platelet Count Result 177 k/mm3 (150-375); Red Blood Count 4.02 M/mm3 (4.2-5.4); Red Cell Distribution Width 17.5 % (11.5-14.5); White Blood Count 7.6 K/mm3 (4.5-10.0)
--- NOTE | 2024-04-20 07:55 | PM.IMPN ---
Progress Note: A&P Assessment and Plan (1) Pneumonia: Qualifiers: Pneumonia type: due to influenza A virus Qualified Code(s): J10.00 - Influenza due to other identified influenza virus with unspecified type of pneumonia Code(s): J18.9 - Pneumonia, unspecified organism Status: Acute Assessment and Plan: - Did not meet SIRS criteria, WBC only. - CXR: Airspace opacities at the lung bases, consistent with atelectasis versus pneumonia. - risk factors and complicating factors: Flu - started on CAP tx: ceftriaxone and azithromycin on 04/19 - MRSA PCR negative - Sputum culture - Viral PCR: +influenza - Blood cultures obtained on 04/18: pending - no supplemental O2 requirement at this time - Monitor vital signs, I&Os, neuro status and patient is a fall risk - Follow WBC, serum electrolytes, temperature curves and cultures (2) Influenza: Code(s): J11.1 - Influenza due to unidentified influenza virus with other respiratory manifestations Status: Acute Assessment and Plan: - tested positive for influenza A on 04/19 - CXR concerning for bibasilar pneumonia - patient out of the window for Tamiflu, discontinued - supportive care: Tylenol p.r.n. Mucinex ashutosh DuoNeb p.r.n. Tessalon Perles p.r.n. Lozenge p.r.n. - monitor WBC/CBC - currently not requiring increased supplemental O2 (3) Acute kidney injury: Code(s): N17.9 - Acute kidney failure, unspecified Status: Acute Assessment and Plan: - creatinine 3.45 and GFR 13, previously 1.0 and GFR 54 on 01/14/2024 - BUN/Cr 56/1.48 on am labs - CT abd/pelvis: 1. Bibasilar lung disease most suspicious for pneumonia. No acute intra-abdominal/pelvic process. 2. Unchanged large right staghorn calculus without hydronephrosis. 3. Chronic left recto cutaneous fistula. - IV fluids: 3L bolus -> 125 mL/hr - patient has had nausea (very poor PO intake over the last 5+ days) and diarrhea for the last few days (primarily on Tuesday), suspect injury secondary to hypovolemia. consultation and further workup. - trend renal function - avoid nephrotoxic medications - renally dose medications - montior I/O - trend electrolytes, correct as needed (4) Type 2 diabetes mellitus without complications: Qualifiers: Diabetes mellitus usp insulin use: without salvage winder use Qualified Code(s): E11.9 - Type 2 diabetes mellitus without complications Code(s): E11.9 - Type 2 diabetes mellitus without complications Status: Chronic Assessment and Plan: - hypoglycemia protocol - POC blood glucose ACHS - home medication: hold Januvia - correct regimen ordered - high dose TIDWM, based off BMI - A1C 5.4% on 01/14/2024 (5) Hypertension: Qualifiers: Hypertension type: essential hypertension Qualified Code(s): I10 - Essential (primary) hypertension Code(s): I10 - Essential (primary) hypertension Status: Chronic Assessment and Plan: - chronic, currently borderline hypotensive - Continue metoprolol 25 mg BID - hold Lisinopril for ongoing ANN and hypotension - Blood pressures remain stable, continue to monitor (6) Atrial fibrillation: Code(s): I48.91 - Unspecified atrial fibrillation Status: Acute Assessment and Plan: Chronic, continue home medications - metoprolol 25 mg BID - Xarelto 20 mg daily - monitor Plan Diet: Heart healthy GI Prophylaxis: Not currently indicated DVT Prophylaxis: Xarelto Lines: Peripheral Code Status: Full code Time Spent With Patient Time with patient: 25 - 35 minutes Subjective Date/time seen: 04/20/24 07:55 Interval history: 73 y/o F presents here with nausea, diarrhea, and cough with PMH of paroxysmal atrial flutter, chronic anticoagulation, diabetes, iron deficiency anemia, hydradenitis, hypertension, and hyperlipidemia. Patient is pleasant sitting up in her chair. she continues to endorse shortness of breath and a cough but notes that is improved since admission. She has no other complaints denying chest pain, palpitations, nausea/vomiting and abdominal pain. Review of Systems Review of Systems: All systems reviewed & are unremarkable except as noted in HPI and below Exam Narrative: AF HR 80 RR 20 SPO2 97 BP 108/61 General: female in no acute respiratory distress who is nontoxic appearing, sitting up in chair HEENT: Normocephalic. Atraumatic. Extraocular movement intact. Sclera clear and anicteric. No facial asymmetry. Chest: Lungs are coarse to auscultation bilaterally in the bases. CV: Heart was regular rate and rhythm. S1-S2. No murmurs, gallops, or rubs. Abd: Abdomen was soft. Nontender. Nondistended. Positive bowel sounds. Ext: No clubbing, cyanosis, or edema. 2+ DP pulses bilaterally. Neuro: Patient is alert and oriented x4. Speech is clear. Objective Data Vital Signs Vital Signs: Vital Signs - 24 hr 04/19/24 08:40 04/19/24 10:17 04/19/24 10:45 Temperature Pulse Rate 82 82 Respiratory Rate 20 24 H Blood Pressure 90/60 L 85/54 L 108/58 L Pulse Oximetry 98 95 Oxygen Delivery 04/19/24 11:09 04/19/24 12:00 04/19/24 12:02 Temperature Pulse Rate 80 85 86 Respiratory Rate 17 17 20 Blood Pressure 103/55 L 98/58 L Pulse Oximetry 100 99 95 Oxygen Delivery 04/19/24 12:39 04/19/24 12:45 04/19/24 15:26 Temperature 97.4 F L Pulse Rate 100 98 99 Respiratory Rate 20 16 18 Blood Pressure 109/49 L 116/48 L Pulse Oximetry 92 93 100 Oxygen Delivery 04/19/24 17:58 04/19/24 20:00 04/19/24 20:02 Temperature Pulse Rate 94 78 Respiratory Rate Blood Pressure Pulse Oximetry Oxygen Delivery Room Air 04/19/24 21:18 04/20/24 00:00 04/20/24 04:00 Temperature 97.7 F Pulse Rate 87 74 80 Respiratory Rate 20 Blood Pressure 120/62 Pulse Oximetry 95 Oxygen Delivery 04/20/24 06:00 Temperature 97.5 F L Pulse Rate 80 Respiratory Rate 20 Blood Pressure 108/61 Pulse Oximetry 97 Oxygen Delivery Intake/Output Intake/Output: Intake & Output 04/17/24 04/18/24 04/19/24 04/20/24 23:59 23:59 23:59 23:59 Intake Total 4420 240 Output Total 550 Balance 4420 -310 Meds/Results Medications: Active Medications Generic Name Dose Route Start Last Admin Trade Name Freq PRN Reason Stop Dose Admin Acetaminophen 650 mg 04/19/24 13:21 Acetaminophen 325 Mg Tablet PO Q4H PRN Mild Pain (1-3) or Fever Albuterol/Ipratropium 3 ml 04/19/24 14:04 Ipratropium 0.5 Mg/Albuterol Sulfate 2.5 Mg Ampul.Neb 3 Ml INHALATION Q6HRT PRN Shortness Of Breath Or Wheezing Ascorbic Acid 1,000 mg 04/20/24 09:00 Ascorbic Acid 500 Mg Tablet PO DAILY [facility] Atorvastatin Calcium 10 mg 04/20/24 09:00 Atorvastatin 10 Mg Tablet PO DAILY ASHUTOSH Benzocaine 1 lozenge 04/19/24 14:04 Benzocaine/Menthol (*Bkc) 18 Ea Lozenge PO PRN PRN Sore Throat Benzonatate 100 mg 04/19/24 14:04 Benzonatate 100 Mg Capsule PO TID PRN cough Dextrose 12.5 gm 04/19/24 14:04 Dextrose 50% 25 Gm/50 Ml Syringe IV PUSH PRN PRN Hypoglycemia Protocol Ferrous Sulfate 325 mg 04/20/24 09:00 Ferrous Sulfate [address] BY MOUTH Q48H ASHUTOSH Glucagon 1 mg 04/19/24 14:04 Glucagon For Inj 1 Mg Vial IM PRN PRN Hypoglycemia Protocol Glucose 15 gm 04/19/24 14:04 Glucose Oral Gel 15 Gm Of Glucse In 37.5 Gm Tube PO PRN PRN Hypoglycemia Protocol Guaifenesin 600 mg 04/19/24 14:15 04/19/24 20:02 Guaifenesin 12 Hr 600 Mg Tabcr PO 600 mg Q12HR ASHUTOSH Administration Ceftriaxone Sodium 1 gm in 50 mls @ 100 mls/hr 04/20/24 09:00 Rocephin 1 Gm/Ns 50 Ml IVPB Q24H ASHUTOSH Azithromycin 500 mg in 250 mls @ 250 mls/hr 04/20/24 09:00 Zithromax IVPB Q24H A[facility]OSH Sodium Chloride 1,000 mls @ 150 mls/hr 04/19/24 13:25 04/20/24 00:32 Normal Saline Iv IV CONT 150 mls/hr .Q6H40M ASHUTOSH Administration Dextrose 1,000 mls @ 100 mls/hr 04/19/24 14:04 Dextrose 5% 1,000 Ml IVPB PRN PRN Hypoglycemia Protocol Insulin Aspart 4 - 8 units 04/19/24 17:00 04/19/24 18:05 Insulin Aspart (*Bkc) 100 Units/Ml SUB-Q Not Given TIDWM [facility] Protocol Metoprolol Succinate 25 mg 04/19/24 21:00 04/19/24 20:02 Metoprolol Succinate Ext Rel 25 Mg Tabcr PO 25 mg Q12HR [facility] Administration Ondansetron HCl 4 mg 04/19/24 13:21 Ondansetron Inj 4 Mg/2 Ml Vial IV PUSH Q4H PRN Nausea Rivaroxaban 20 mg 04/20/24 18:00 Rivaroxaban 20 Mg Tablet PO QPM [facility] Radiology Results: ITS Impressions Chest X-Ray 04/19/24 08:35 IMPRESSION: 1. Airspace opacities at the lung bases, consistent with atelectasis versus pneumonia. Abdomen/Pelvis CT 04/19/24 09:32 IMPRESSION: 1. Bibasilar lung disease most suspicious for pneumonia. No acute intra-abdominal/pelvic process. 2. Unchanged large right staghorn calculus without hydronephrosis. 3. Chronic left recto cutaneous fistula. Labs Labs: Laboratory Results - last 24 hr 04/19/24 04/19/24 04/19/24 08:11 09:10 10:41 WBC 17.0 H RBC 4.75 Hgb 12.1 Hct 37.3 MCV 78.5 L MCH 25.5 L MCHC 32.4 RDW 17.3 H Plt Count 257 MPV 9.6 Immature Gran % (Auto) 1.6 H Neut % (Auto) 84.3 H Lymph % (Auto) 5.7 L [place] % (Auto) 8.2 Eos % (Auto) 0.0 Baso % (Auto) 0.2 Lymph # (Auto) 0.97 [place] # (Auto) 1.4 H Eos # (Auto) 0.0 Baso # (Auto) 0.0 Abs Immat Gran (auto) 0.28 H Absolute Neuts (auto) 14.4 H Absolute Nucleated RBC 0.000 Nucleated RBC % 0.0 PT 20.8 H INR 1.7 APTT 38.1 H Sodium 131 L Potassium 4.3 Chloride 100 Carbon Dioxide 15 L Anion Gap 16 H BUN 88 H D Creatinine 3.45 H Estim Creat Clear Calc 15 Estimated GFR 13 L Glucose 118 H POC Capillary Glucose Lactic Acid 1.4 Calcium 8.2 L Magnesium 2.2 Total Bilirubin 0.6 AST 41 H ALT 23 Alkaline Phosphatase 68 Total Protein 8.0 Albumin 3.6 Lipase 153 Procalcitonin 2.5 Urine Color Yellow Urine Appearance Turbid H Urine pH 5.0 Ur Specific [place] 1.015 Urine Protein 1+ H Urine Glucose (UA) Negative Urine Ketones Trace H Ur Blood (Man) 2+ H Urine Nitrate Negative Urine Bilirubin Negative Urine Urobilinogen 0.2 Leukocyte Esterase Rfl 1+ H Urine RBC 21-50 H Urine WBC 6-10 H Ur Squamous Epith Cells Moderate Amorphous Sediment Few H Urine Bacteria Rare Urine Casts 11-20 Nasal MRSA (PCR) Influenza A (RT-PCR) Positive A Influenza B (RT-PCR) Negative RSV (RT-PCR) Negative SARS-CoV-2 RNA (RT-PCR) Negative 04/19/24 04/19/24 04/19/24 14:49 16:42 21:00 WBC RBC Hgb Hct MCV MCH MCHC RDW Plt Count MPV Immature Gran % (Auto) Neut % (Auto) Lymph % (Auto) [place] % (Auto) Eos % (Auto) Baso % (Auto) Lymph # (Auto) [place] # (Auto) Eos # (Auto) Baso # (Auto) Abs Immat Gran (auto) Absolute Neuts (auto) Absolute Nucleated RBC Nucleated RBC % PT INR APTT Sodium Potassium Chloride Carbon Dioxide Anion Gap BUN Creatinine Estim Creat Clear Calc Estimated GFR Glucose POC Capillary Glucose 77 74 Lactic Acid Calcium Magnesium Total Bilirubin AST ALT Alkaline Phosphatase Total Protein Albumin Lipase Procalcitonin Urine Color Urine Appearance Urine pH Ur Specific [place] Urine Protein Urine Glucose (UA) Urine Ketones Ur Blood (Man) Urine Nitrate Urine Bilirubin Urine Urobilinogen Leukocyte Esterase Rfl Urine RBC Urine WBC Ur Squamous Epith Cells Amorphous Sediment Urine Bacteria Urine Casts Nasal MRSA (PCR) Not detected Influenza A (RT-PCR) Influenza B (RT-PCR) RSV (RT-PCR) SARS-CoV-2 RNA (RT-PCR) 04/20/24 06:32 WBC 7.6 RBC 4.02 L Hgb 10.3 L Hct 32.2 L MCV 80.1 MCH 25.6 L MCHC 32.0 RDW 17.5 H Plt Count 177 MPV 9.6 Immature Gran % (Auto) 0.7 H Neut % (Auto) 81.7 H Lymph % (Auto) 9.2 L [place] % (Auto) 8.3 Eos % (Auto) 0.0 Baso % (Auto) 0.1 L Lymph # (Auto) 0.70 L [place] # (Auto) 0.6 Eos # (Auto) 0.0 Baso # (Auto) 0.0 Abs Immat Gran (auto) 0.05 H Absolute Neuts (auto) 6.2 Absolute Nucleated RBC 0.000 Nucleated RBC % 0.0 PT INR APTT Sodium Potassium Chloride Carbon Dioxide Anion Gap BUN Creatinine Estim Creat Clear Calc Estimated GFR Glucose POC Capillary Glucose Lactic Acid Calcium Magnesium Total Bilirubin AST ALT Alkaline Phosphatase Total Protein Albumin Lipase Procalcitonin Urine Color Urine Appearance Urine pH Ur Specific [place] Urine Protein Urine Glucose (UA) Urine Ketones Ur Blood (Man) Urine Nitrate Urine Bilirubin Urine Urobilinogen Leukocyte Esterase Rfl Urine RBC Urine WBC Ur Squamous Epith Cells Amorphous Sediment Urine Bacteria Urine Casts Nasal MRSA (PCR) Influenza A (RT-PCR) Influenza B (RT-PCR) RSV (RT-PCR) SARS-CoV-2 RNA (RT-PCR) Quality VTE Prophylaxis VTE prophylaxis: pharmacologic ordered
[2024-04-20 08:10] LABS: Alanine Aminotransferase 18 U/L (6-35); Albumin Level 2.8 g/dL (3.5-5.1); Alkaline Phosphatase 54 U/L (38-126); Anion Gap 11 mmol/L (4-12); Aspartate Amino Transferase 31 U/L (14-36); Bilirubin,Total 0.5 mg/dL (0.2-1.3); Blood Urea Nitrogen 56 mg/dL (7-17); Calcium 7.7 mg/dL (8.4-10.2); Carbon Dioxide 17 mmol/L (22-30); Chloride 114 mmol/L (98-107); Estimated CRCL calculation 34 ml/min; Estimated Glomerular Filt Rate 34; Glucose 64 mg/dL (65-110); Magnesium 1.8 mg/dL (1.6-2.3); Phosphorus 3.5 mg/dL (2.5-4.5); Potassium 4.3 mmol/L (3.4-5.0); Sodium 142 mmol/L (137-145)
[2024-04-20 08:23] LABS: Glucose Point of Care 50 mg/dl (65-105)
[2024-04-20 08:23] LABS: Glucose Point of Care 45 mg/dl (65-105)
[2024-04-20] MEDS: AZITHROMYCIN 500 MG/NS 250 ML 500 MG/250 ML BAG 250 MG IVPB (08:25)
[2024-04-20] MEDS: ASCORBIC ACID 500 MG TABLET 1000 MG PO (08:26)
[2024-04-20] MEDS: ATORVASTATIN 10 MG TABLET PO (08:26)
[2024-04-20] MEDS: FERROUS SULFATE 325 MG TABLET DR BY MOUTH (08:26)
[2024-04-20] MEDS: BENZONATATE 100 MG CAPSULE PO (08:26)
[2024-04-20] MEDS: METOPROLOL SUCCINATE EXT REL 25 MG TABCR PO ×2 (08:26→21:28)
[2024-04-20] MEDS: guaiFENesin 12 HR 600 MG TABCR PO ×2 (08:26→21:28)
[2024-04-20 09:03] LABS: Glucose Point of Care 92 mg/dl (65-105)
[2024-04-20 11:52] LABS: Glucose Point of Care 142 mg/dl (65-105)
[2024-04-20 16:55] LABS: Glucose Point of Care 113 mg/dl (65-105)
[2024-04-20] MEDS: RIVAROXABAN 20 MG TABLET PO (17:07)
[2024-04-20 20:44] LABS: Glucose Point of Care 178 mg/dl (65-105)
[2024-04-21] VITALS (9 sets, daily range): BP systolic 135–140; BP diastolic 63–73; PULSE 77–94; RESP 18; TEMP 36.2–36.8; O2SAT 96–98
[2024-04-21 06:27] LABS: Hematocrit 31.7 % (37.0-47.0); Mean Corpuscular HGB Conc 31.5 g/dl (32-36); Mean Corpuscular Hemoglobin 25.5 pg (26-34); Mean Corpuscular Volume 80.9 fl (80-100); Mean Platelet Volume 9.5 fl (7.4-10.4); Platelet Count Result 205 k/mm3 (150-375); Red Blood Count 3.92 M/mm3 (4.2-5.4); White Blood Count 8.5 K/mm3 (4.5-10.0)
[2024-04-21 06:40] LABS: Alanine Aminotransferase 16 U/L (6-35); Albumin Level 2.7 g/dL (3.5-5.1); Alkaline Phosphatase 56 U/L (38-126); Anion Gap 8 mmol/L (4-12); Aspartate Amino Transferase 22 U/L (14-36); Bilirubin,Total 0.5 mg/dL (0.2-1.3); Blood Urea Nitrogen 26 mg/dL (7-17); Calcium 7.2 mg/dL (8.4-10.2); Carbon Dioxide 17 mmol/L (22-30); Chloride 117 mmol/L (98-107); Estimated CRCL calculation 57 ml/min; Estimated Glomerular Filt Rate > 60; Glucose 85 mg/dL (65-110); Potassium 3.9 mmol/L (3.4-5.0); Sodium 142 mmol/L (137-145)
--- NOTE | 2024-04-21 07:57 | PM.IMPN ---
Progress Note: A&P Assessment and Plan (1) Pneumonia: Qualifiers: Pneumonia type: due to influenza A virus Qualified Code(s): J10.00 - Influenza due to other identified influenza virus with unspecified type of pneumonia Code(s): J18.9 - Pneumonia, unspecified organism Status: Acute Assessment and Plan: - Did not meet SIRS criteria, WBC only. - CXR: Airspace opacities at the lung bases, consistent with atelectasis versus pneumonia. - risk factors and complicating factors: Flu - started on CAP tx: ceftriaxone and azithromycin on 04/19 - MRSA PCR negative - Sputum culture - Viral PCR: +influenza - Blood cultures obtained on 04/18: NGTD - no supplemental O2 requirement at this time - Monitor vital signs, I&Os, neuro status and patient is a fall risk - Follow WBC, serum electrolytes, temperature curves and cultures 04/21: Continues to endorse SOB with productive cough. Lung sounds remain coarse but improved from yesterday. Vitals stable. Remains on room air. (2) Influenza: Code(s): J11.1 - Influenza due to unidentified influenza virus with other respiratory manifestations Status: Acute Assessment and Plan: - tested positive for influenza A on 04/19 - CXR concerning for bibasilar pneumonia - patient out of the window for Tamiflu, discontinued - supportive care: Tylenol p.r.n. Mucinex ashutosh DuoNeb p.r.n. Tessalon Perles p.r.n. Lozenge p.r.n. - monitor WBC/CBC - currently not requiring increased supplemental O2 (3) Acute kidney injury: Code(s): N17.9 - Acute kidney failure, unspecified Status: Acute Assessment and Plan: - creatinine 3.45 and GFR 13, previously 1.0 and GFR 54 on 01/14/2024. Patient had nausea (very poor PO intake over the last 5+ days) and diarrhea for the last few days (primarily on Tuesday), suspect injury secondary to hypovolemia. - BUN/Cr 26/0.85 on am labs - CT abd/pelvis: 1. Bibasilar lung disease most suspicious for pneumonia. No acute intra-abdominal/pelvic process. 2. Unchanged large right staghorn calculus without hydronephrosis. 3. Chronic left recto cutaneous fistula. 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: without senior care use Qualified Code(s): E11.9 - Type 2 diabetes mellitus without complications Code(s): E11.9 - Type 2 diabetes mellitus without complications Status: Chronic Assessment and Plan: - hypoglycemia protocol - POC blood glucose ACHS - home medication: hold Januvia - correct regimen ordered - high dose TIDWM, based off BMI - A1C 5.4% on 01/14/2024 (5) Hypertension: Qualifiers: Hypertension type: essential hypertension Qualified Code(s): I10 - Essential (primary) hypertension Code(s): I10 - Essential (primary) hypertension Status: Chronic Assessment and Plan: - chronic, currently borderline hypotensive - Continue metoprolol 25 mg BID - Resumed Lisinopril as ANN resolved - Blood pressures remain stable, continue to monitor (6) Atrial fibrillation: Code(s): I48.91 - Unspecified atrial fibrillation Status: Acute Assessment and Plan: Chronic, continue home medications - metoprolol 25 mg BID - Xarelto 20 mg daily - monitor Plan Diet: Heart healthy GI Prophylaxis: Not currently indicated DVT Prophylaxis: Xarelto Lines: Peripheral Code Status: Full code Time Spent With Patient Time with patient: 25 - 35 minutes Subjective Date/time seen: 04/21/24 07:57 Interval history: 73 y/o F presents here with nausea, diarrhea, and cough with PMH of paroxysmal atrial flutter, chronic anticoagulation, diabetes, iron deficiency anemia, hydradenitis, hypertension, and hyperlipidemia. Patient is pleasant lying comfortably in bed. She is endorsing increased diarrhea without noted blood. She denies nausea/vomiting and abdominal pain. She states that the diarrhea appears to be related to food. C diff negative. She notes that the shortness of breath continues to improve and endorses continued cough. She has no other complaints denying chest pain and palpitations. Review of Systems Review of Systems: All systems reviewed & are unremarkable except as noted in HPI and below Exam Narrative: AF HR 89 RR 18 SpO2 98 BP 140/73 General: female in no acute respiratory distress who is nontoxic appearing, lying comfortably in bed. HEENT: Normocephalic. Atraumatic. Extraocular movement intact. Sclera clear and anicteric. No facial asymmetry. Chest: Lungs remain coarse to auscultation bilaterally in the bases. CV: Heart was regular rate and rhythm. S1-S2. No murmurs, gallops, or rubs. Abd: Abdomen was soft. Nontender. Nondistended. Positive bowel sounds. Ext: No clubbing, cyanosis, or edema. 2+ DP pulses bilaterally. Neuro: Patient is alert and oriented x4. Speech is clear. Objective Data Vital Signs Vital Signs: Vital Signs - 24 hr 04/20/24 08:00 04/20/24 08:00 04/20/24 08:26 Temperature Pulse Rate 84 70 Respiratory Rate Blood Pressure Pulse Oximetry 97 Oxygen Delivery Room Air 04/20/24 12:00 04/20/24 14:00 04/20/24 16:00 Temperature 97 F L Pulse Rate 80 89 89 Respiratory Rate 24 H Blood Pressure 118/56 L Pulse Oximetry 99 Oxygen Delivery 04/20/24 20:00 04/20/24 21:28 04/20/24 22:00 Temperature 97.6 F Pulse Rate 96 86 89 Respiratory Rate 22 H Blood Pressure 129/69 Pulse Oximetry 100 Oxygen Delivery 04/21/24 00:00 04/21/24 04:00 04/21/24 06:00 Temperature 98.3 F Pulse Rate 77 77 86 Respiratory Rate 18 Blood Pressure 138/65 Pulse Oximetry 97 Oxygen Delivery Intake/Output Intake/Output: Intake & Output 04/18/24 04/19/24 04/20/24 04/21/24 23:59 23:59 23:59 23:59 Intake Total 4420 3460 550 Output Total 550 Balance 4420 2910 550 Meds/Results Medications: Active Medications Generic Name Dose Route Start Last Admin Trade Name Freq PRN Reason Stop Dose Admin Acetaminophen 650 mg 04/19/24 13:21 Acetaminophen 325 Mg Tablet PO Q4H PRN Mild Pain (1-3) or Fever Albuterol/Ipratropium 3 ml 04/19/24 14:04 Ipratropium 0.5 Mg/Albuterol Sulfate 2.5 Mg Ampul.Neb 3 Ml INHALATION Q6HRT PRN Shortness Of Breath Or Wheezing Ascorbic Acid 1,000 mg 04/20/24 09:00 04/20/24 08:26 Ascorbic Acid 500 Mg Tablet PO 1,000 mg DAILY ASHUTOSH Administration Atorvastatin Calcium 10 mg 04/20/24 09:00 04/20/24 08:26 Atorvastatin 10 Mg Tablet PO 10 mg DAILY ASHUTOSH Administration Benzocaine 1 lozenge 04/19/24 14:04 Benzocaine/Menthol (*Bkc) 18 Ea Lozenge PO PRN PRN Sore Throat Benzonatate 100 mg 04/19/24 14:04 04/20/24 08:26 Benzonatate 100 Mg Capsule PO 100 mg TID PRN Administration cough Dextrose 12.5 gm 04/19/24 14:04 Dextrose 50% 25 Gm/50 Ml Syringe IV PUSH PRN PRN Hypoglycemia Protocol Ferrous Sulfate 325 mg 04/20/24 09:00 04/20/24 08:26 Ferrous Sulfate [address] BY MOUTH 325 mg Q48H ASHUTOSH Administration Glucagon 1 mg 04/19/24 14:04 Glucagon For Inj 1 Mg Vial IM PRN PRN Hypoglycemia Protocol Glucose 15 gm 04/19/24 14:04 Glucose Oral Gel 15 Gm Of Glucse In 37.5 Gm Tube PO PRN PRN Hypoglycemia Protocol Guaifenesin 600 mg 04/19/24 14:15 04/20/24 21:28 Guaifenesin 12 Hr 600 Mg Tabcr PO 600 mg Q12HR ASHUTOSH Administration Ceftriaxone Sodium 1 gm in 50 mls @ 100 mls/hr 04/20/24 09:00 04/20/24 07:59 Rocephin 1 Gm/Ns 50 Ml IVPB 100 mls/hr Q24H ASHUTOSH Administration Azithromycin 500 mg in 250 mls @ 250 mls/hr 04/20/24 09:00 04/20/24 08:25 Zithromax IVPB 250 mls/hr Q24H ASHUTOSH Administration Sodium Chloride 1,000 mls @ 150 mls/hr 04/19/24 13:25 04/20/24 17:08 Normal Saline Iv IV CONT 150 mls/hr .Q6H40M ASHUTOSH Administration Dextrose 1,000 mls @ 100 mls/hr 04/19/24 14:04 Dextrose 5% 1,000 Ml IVPB PRN PRN Hypoglycemia Protocol Insulin Aspart 4 - 8 units 04/19/24 17:00 04/20/24 17:04 Insulin Aspart (*Bkc) 100 Units/Ml SUB-Q Not Given TIDWM ASHUTOSH Protocol Metoprolol Succinate 25 mg 04/19/24 21:00 04/20/24 21:28 Metoprolol Succinate Ext Rel 25 Mg Tabcr PO 25 mg Q12HR ASHUTOSH Administration Ondansetron HCl 4 mg 04/19/24 13:21 Ondansetron Inj 4 Mg/2 Ml Vial IV PUSH Q4H PRN Nausea Rivaroxaban 20 mg 04/20/24 18:00 04/20/24 17:07 Rivaroxaban 20 Mg Tablet PO 20 mg QPM ASHUTOSH Administration Radiology Results: ITS Impressions Chest X-Ray 04/19/24 08:35 IMPRESSION: 1. Airspace opacities at the lung bases, consistent with atelectasis versus pneumonia. Abdomen/Pelvis CT 04/19/24 09:32 IMPRESSION: 1. Bibasilar lung disease most suspicious for pneumonia. No acute intra-abdominal/pelvic process. 2. Unchanged large right staghorn calculus without hydronephrosis. 3. Chronic left recto cutaneous fistula. Labs Labs: Laboratory Results - last 24 hr 04/20/24 04/20/24 04/20/24 06:32 08:19 08:20 WBC RBC Hgb Hct MCV MCH MCHC RDW Plt Count MPV Sodium 142 Potassium 4.3 Chloride 114 H Carbon Dioxide 17 L Anion Gap 11 BUN 56 H D Creatinine 1.48 H Estim Creat Clear Calc 34 Estimated GFR 34 L Glucose 64 L POC Capillary Glucose 45 L* 50 L* Calcium 7.7 L Phosphorus 3.5 Magnesium 1.8 Total Bilirubin 0.5 AST 31 ALT 18 Alkaline Phosphatase 54 Total Protein 6.0 L Albumin 2.8 L 04/20/24 04/20/24 04/20/24 08:55 11:48 16:49 WBC RBC Hgb Hct MCV MCH MCHC RDW Plt Count MPV Sodium Potassium Chloride Carbon Dioxide Anion Gap BUN Creatinine Estim Creat Clear Calc Estimated GFR Glucose POC Capillary Glucose 92 142 H 113 H Calcium Phosphorus Magnesium Total Bilirubin AST ALT Alkaline Phosphatase Total Protein Albumin 04/20/24 04/21/24 20:31 05:45 WBC 8.5 RBC 3.92 L Hgb 10.0 L Hct 31.7 L MCV 80.9 MCH 25.5 L MCHC 31.5 L RDW 18.0 H Plt Count 205 MPV 9.5 Sodium 142 Potassium 3.9 Chloride 117 H Carbon Dioxide 17 L Anion Gap 8 BUN 26 H D Creatinine 0.85 Estim Creat Clear Calc 57 Estimated GFR > 60 Glucose 85 POC Capillary Glucose 178 H Calcium 7.2 L Phosphorus Magnesium Total Bilirubin 0.5 AST 22 ALT 16 Alkaline Phosphatase 56 Total Protein 6.0 L Albumin 2.7 L Quality VTE Prophylaxis VTE prophylaxis: pharmacologic ordered
[2024-04-21 08:14] LABS: Glucose Point of Care 79 mg/dl (65-105)
[2024-04-21] MEDS: guaiFENesin 12 HR 600 MG TABCR PO ×2 (08:30→20:52)
[2024-04-21] MEDS: METOPROLOL SUCCINATE EXT REL 25 MG TABCR PO ×2 (08:30→20:52)
[2024-04-21] MEDS: ATORVASTATIN 10 MG TABLET PO (08:31)
[2024-04-21] MEDS: ASCORBIC ACID 500 MG TABLET 1000 MG PO (08:31)
[2024-04-21] MEDS: lisinopriL 20 MG TABLET PO (08:36)
[2024-04-21] MEDS: AZITHROMYCIN 500 MG/NS 250 ML 500 MG/250 ML BAG 250 MG IVPB (10:03)
[2024-04-21 12:01] LABS: Glucose Point of Care 160 mg/dl (65-105)
[2024-04-21 12:23] LABS: Toxigenic C. Diff NEGATIVE (NEGATIVE)
[2024-04-21 17:04] LABS: Glucose Point of Care 147 mg/dl (65-105)
[2024-04-21] MEDS: RIVAROXABAN 20 MG TABLET PO (17:33)
[2024-04-21 21:11] LABS: Glucose Point of Care 201 mg/dl (65-105)
[2024-04-22] VITALS (15 sets, daily range): BP systolic 132–147; BP diastolic 66–75; PULSE 78–156; RESP 16–20; TEMP 36.3–36.8; O2SAT 96–98
[2024-04-22 06:36] LABS: Hematocrit 31.6 % (37.0-47.0); Mean Corpuscular HGB Conc 31.6 g/dl (32-36); Mean Corpuscular Hemoglobin 26.1 pg (26-34); Mean Corpuscular Volume 82.5 fl (80-100); Mean Platelet Volume 9.5 fl (7.4-10.4); Platelet Count Result 223 k/mm3 (150-375); Red Blood Count 3.83 M/mm3 (4.2-5.4); Red Cell Distribution Width 17.5 % (11.5-14.5); White Blood Count 9.1 K/mm3 (4.5-10.0)
[2024-04-22 06:46] LABS: Alanine Aminotransferase 15 U/L (6-35); Albumin Level 2.7 g/dL (3.5-5.1); Alkaline Phosphatase 53 U/L (38-126); Anion Gap 10 mmol/L (4-12); Aspartate Amino Transferase 19 U/L (14-36); Bilirubin,Total 0.7 mg/dL (0.2-1.3); Blood Urea Nitrogen 15 mg/dL (7-17); Calcium 6.5 mg/dL (8.4-10.2); Carbon Dioxide 20 mmol/L (22-30); Chloride 111 mmol/L (98-107); Estimated CRCL calculation 53 ml/min; Estimated Glomerular Filt Rate 60; Glucose 86 mg/dL (65-110); Potassium 3.6 mmol/L (3.4-5.0); Sodium 141 mmol/L (137-145)
[2024-04-22 07:46] LABS: Glucose Point of Care 117 mg/dl (65-105)
[2024-04-22] MEDS: ASCORBIC ACID 500 MG TABLET 1000 MG PO (08:09)
[2024-04-22] MEDS: METOPROLOL SUCCINATE EXT REL 25 MG TABCR PO ×2 (08:09→20:20)
[2024-04-22] MEDS: FERROUS SULFATE 325 MG TABLET DR BY MOUTH (08:09)
[2024-04-22] MEDS: ATORVASTATIN 10 MG TABLET PO (08:09)
[2024-04-22] MEDS: lisinopriL 20 MG TABLET PO (08:09)
[2024-04-22] MEDS: guaiFENesin 12 HR 600 MG TABCR PO ×2 (08:11→20:20)
--- NOTE | 2024-04-22 08:24 | P.PNIM_ITS ---
Progress Note: A&P Assessment and Plan (1) Pneumonia: Qualifiers: Pneumonia type: due to influenza A virus Qualified Code(s): J10.00 - Influenza due to other identified influenza virus with unspecified type of pneumonia Code(s): J18.9 - Pneumonia, unspecified organism Status: Acute Assessment and Plan: - Did not meet SIRS criteria, WBC only. - CXR: Airspace opacities at the lung bases, consistent with atelectasis versus pneumonia. - risk factors and complicating factors: Flu - started on CAP tx: ceftriaxone and azithromycin on 04/19 - MRSA PCR negative - Sputum culture: preliminary - lower resp tract - Viral PCR: +influenza - Blood cultures obtained on 04/18: NGTD - no supplemental O2 requirement at this time - IS and pep therapy - Monitor vital signs, I&Os, neuro status and patient is a fall risk - Follow WBC, serum electrolytes, temperature curves and cultures 04/21: Continues to endorse SOB with productive cough. Lung sounds remain coarse but improved from yesterday. Vitals stable. Remains on room air. 04/22: Shortness of breath has improved. Continues to endorse a cough and increased congestion. Lungs sounds have improved but remain coarse in the bases. Vitals stable on room air. (2) Influenza: Code(s): J11.1 - Influenza due to unidentified influenza virus with other respiratory manifestations Status: Acute Assessment and Plan: - tested positive for influenza A on 04/19 - CXR concerning for bibasilar pneumonia - patient out of the window for Tamiflu, discontinued - supportive care: Tylenol p.r.n. Mucinex ashutosh DuoNeb p.r.n. Tessalon Perles p.r.n. Lozenge p.r.n. - monitor WBC/CBC - currently not requiring increased supplemental O2 (3) Acute kidney injury: Code(s): N17.9 - Acute kidney failure, unspecified Status: Acute Assessment and Plan: - creatinine 3.45 and GFR 13, previously 1.0 and GFR 54 on 01/14/2024. Patient had nausea (very poor PO intake over the last 5+ days) and diarrhea for the last few days (primarily on Tuesday), suspect injury secondary to hypovolemia. - BUN/Cr 15/0.91 on am labs - CT abd/pelvis: 1. Bibasilar lung disease most suspicious for pneumonia. No acute intra- abdominal/pelvic process. 2. Unchanged large right staghorn calculus without hydronephrosis. 3. Chronic left recto cutaneous fistula. - IV fluids discontinued as patient is drinking water - trend renal function - avoid nephrotoxic medications - renally dose medications - monitor I/O Resolved. 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: without mcc use Qualified Code(s): E11.9 - Type 2 diabetes mellitus without complications Code(s): E11.9 - Type 2 diabetes mellitus without complications Status: Chronic Assessment and Plan: - hypoglycemia protocol - POC blood glucose ACHS - home medication: hold Januvia - correct regimen ordered - high dose TIDWM, based off BMI - A1C 5.4% on 01/14/2024 (5) Hypertension: Qualifiers: Hypertension type: essential hypertension Qualified Code(s): I10 - Essential (primary) hypertension Code(s): I10 - Essential (primary) hypertension Status: Chronic Assessment and Plan: - chronic, currently borderline hypotensive - Continue metoprolol 25 mg BID - Resumed Lisinopril as ANN resolved - Blood pressures remain stable, continue to monitor (6) Atrial fibrillation: Code(s): I48.91 - Unspecified atrial fibrillation Status: Acute Assessment and Plan: Chronic, continue home medications - metoprolol 25 mg BID - Xarelto 20 mg daily - monitor Plan Diet: Heart healthy GI Prophylaxis: Not currently indicated DVT Prophylaxis: Xarelto Lines: Peripheral Code Status: Full code Time Spent With Patient Time with patient: 25 - 35 minutes Subjective Date/time seen: 04/22/24 08:24 Interval history: 73 y/o F presents here with nausea, diarrhea, and cough with PMH of paroxysmal atrial flutter, chronic anticoagulation, diabetes, iron deficiency anemia, hydradenitis, hypertension, and hyperlipidemia. Patient is pleasant sitting up in her chair. She states that her shortness of breath has improved. she continues to feel congested though her cough has been nonproductive. Started on incentive spirometer and pep therapy. Patient has no other complaints denying chest pain, palpitations, nausea/ vomiting, diarrhea, and abdominal pain. Her family is wanting her to have therapy evaluate her as they have noted that she has been less mobile and and is now having to hold onto things that she ambulates throughout her house. PT/OT consulted. Review of Systems Review of Systems: All systems reviewed & are unremarkable except as noted in HPI and below Exam Narrative: AF HR 90 RR 20 SpO2 96 BP 132/75 General: female in no acute respiratory distress who is nontoxic appearing, sitting up in chair HEENT: Normocephalic. Atraumatic. Extraocular movement intact. Sclera clear and anicteric. No facial asymmetry. Chest: Lungs remain slightly coarse to auscultation bilaterally in the bases. CV: Heart was regular rate and rhythm. S1-S2. No murmurs, gallops, or rubs. Abd: Abdomen was soft. Nontender. Nondistended. Positive bowel sounds. Ext: No clubbing, cyanosis, or edema. 2+ DP pulses bilaterally. Neuro: Patient is alert and oriented x4. Speech is clear. Objective Data Vital Signs Vital Signs: Vital Signs - 24 hr 04/21/24 08:30 04/21/24 12:00 04/21/24 14:00 Temperature 97.1 F L Pulse Rate 86 88 89 Respiratory Rate 18 Blood Pressure 140/73 Pulse Oximetry 98 04/21/24 19:45 04/21/24 21:28 04/22/24 00:00 Temperature 98.1 F Pulse Rate 78 94 84 Respiratory Rate 18 Blood Pressure 135/63 Pulse Oximetry 96 04/22/24 04:00 04/22/24 06:00 04/22/24 08:09 Temperature 98.3 F Pulse Rate 78 90 90 Respiratory Rate 20 Blood Pressure 133/70 Pulse Oximetry 97 Intake/Output Intake/Output: Intake & Output 04/19/24 04/20/24 04/21/24 04/22/24 23:59 23:59 23:59 23:59 Intake Total 4420 3760 1510 550 Output Total 550 Balance 4420 3210 1510 550 Meds/Results Medications: Active Medications Generic Name Dose Route Start Last Admin Trade Name Freq PRN Reason Stop Dose Admin Acetaminophen 650 mg 04/19/24 13:21 Acetaminophen 325 Mg Tablet PO Q4H PRN Mild Pain (1-3) or Fever Albuterol/Ipratropium 3 ml 04/19/24 14:04 Ipratropium 0.5 Mg/Albuterol Sulfate 2.5 Mg Ampul.Neb 3 Ml INHALATION Q6HRT PRN Shortness Of Breath Or Wheezing Ascorbic Acid 1,000 mg 04/20/24 09:00 04/22/24 08:09 Ascorbic Acid 500 Mg Tablet PO 1,000 mg DAILY ASHUTOSH Administration Atorvastatin Calcium 10 mg 04/20/24 09:00 04/22/24 08:09 Atorvastatin 10 Mg Tablet PO 10 mg DAILY ASHUTOSH Administration Benzocaine 1 lozenge 04/19/24 14:04 Benzocaine/Menthol (*Bkc) 18 Ea Lozenge PO PRN PRN Sore Throat Benzonatate 100 mg 04/19/24 14:04 04/20/24 08:26 Benzonatate 100 Mg Capsule PO 100 mg TID PRN Administration cough Dextrose 12.5 gm 04/19/24 14:04 Dextrose 50% 25 Gm/50 Ml Syringe IV PUSH PRN PRN Hypoglycemia Protocol Ferrous Sulfate 325 mg 04/20/24 09:00 04/22/24 08:09 Ferrous Sulfate [address] BY MOUTH 325 mg Q48H ASHUTOSH Administration Glucagon 1 mg 04/19/24 14:04 Glucagon For Inj 1 Mg Vial IM PRN PRN Hypoglycemia Protocol Glucose 15 gm 04/19/24 14:04 Glucose Oral Gel 15 Gm Of Glucse In 37.5 Gm Tube PO PRN PRN Hypoglycemia Protocol Guaifenesin 600 mg 04/19/24 14:15 04/22/24 08:11 Guaifenesin 12 Hr 600 Mg Tabcr PO 600 mg Q12HR ASHUTOSH Administration Ceftriaxone Sodium 1 gm in 50 mls @ 100 mls/hr 04/20/24 09:00 04/22/24 08:11 Rocephin 1 Gm/Ns 50 Ml IVPB 100 mls/hr Q24H ASHUTOSH Administration Azithromycin 500 mg in 250 mls @ 250 mls/hr 04/20/24 09:00 04/21/24 11:03 Zithromax IVPB Infused Q24H ASHUTOSH Infusion Dextrose 1,000 mls @ 100 mls/hr 04/19/24 14:04 Dextrose 5% 1,000 Ml IVPB PRN PRN Hypoglycemia Protocol Insulin Aspart 4 - 8 units 04/19/24 17:00 04/22/24 07:57 Insulin Aspart (*Bkc) 100 Units/Ml SUB-Q Not Given TIDWM REPLACED BY [facility] Protocol Lisinopril 20 mg 04/21/24 09:00 04/22/24 08:09 Lisinopril 20 Mg Tablet PO 20 mg DAILY ASHUTOSH Administration Metoprolol Succinate 25 mg 04/19/24 21:00 04/22/24 08:09 Metoprolol Succinate Ext Rel 25 Mg Tabcr PO 25 mg Q12HR ASHUTOSH Administration Ondansetron HCl 4 mg 04/19/24 13:21 Ondansetron Inj 4 Mg/2 Ml Vial IV PUSH Q4H PRN Nausea Rivaroxaban 20 mg 04/20/24 18:00 04/21/24 17:33 Rivaroxaban 20 Mg Tablet PO 20 mg QPM ASHUTOSH Administration Radiology Results: ITS Impressions Chest X-Ray 04/19/24 08:35 IMPRESSION: 1. Airspace opacities at the lung bases, consistent with atelectasis versus pneumonia. Abdomen/Pelvis CT 04/19/24 09:32 IMPRESSION: 1. Bibasilar lung disease most suspicious for pneumonia. No acute intra- abdominal/pelvic process. 2. Unchanged large right staghorn calculus without hydronephrosis. 3. Chronic left recto cutaneous fistula. Labs Labs: Laboratory Results - last 24 hr 04/21/24 04/21/24 04/21/24 11:30 11:55 16:59 WBC RBC Hgb Hct MCV MCH MCHC RDW Plt Count MPV Sodium Potassium Chloride Carbon Dioxide Anion Gap BUN Creatinine Estim Creat Clear Calc Estimated GFR Glucose POC Capillary Glucose 160 H 147 H Calcium Total Bilirubin AST ALT Alkaline Phosphatase Total Protein Albumin C. difficile (PCR) Negative 04/21/24 04/22/24 04/22/24 19:27 05:34 07:40 WBC 9.1 RBC 3.83 L Hgb 10.0 L Hct 31.6 L MCV 82.5 MCH 26.1 MCHC 31.6 L RDW 17.5 H Plt Count 223 MPV 9.5 Sodium 141 Potassium 3.6 Chloride 111 H Carbon Dioxide 20 L Anion Gap 10 BUN 15 D Creatinine 0.91 Estim Creat Clear Calc 53 Estimated GFR 60 Glucose 86 POC Capillary Glucose 201 H 117 H Calcium 6.5 L Total Bilirubin 0.7 AST 19 ALT 15 Alkaline Phosphatase 53 Total Protein 5.0 L Albumin 2.7 L C. difficile (PCR) Quality VTE Prophylaxis VTE prophylaxis: pharmacologic ordered
[2024-04-22] MEDS: AZITHROMYCIN 500 MG/NS 250 ML 500 MG/250 ML BAG 250 MG IVPB (09:11)
[2024-04-22] MEDS: BENZONATATE 100 MG CAPSULE PO (11:30)
[2024-04-22 12:06] LABS: Glucose Point of Care 127 mg/dl (65-105)
[2024-04-22 16:50] LABS: Glucose Point of Care 129 mg/dl (65-105)
[2024-04-22] MEDS: RIVAROXABAN 20 MG TABLET PO (17:02)
[2024-04-22] MEDS: METOPROLOL TARTRATE INJ 5 MG/5 ML VIAL IV PUSH (18:47)
[2024-04-22 21:58] LABS: Glucose Point of Care 191 mg/dl (65-105)
[2024-04-23] VITALS (12 sets, daily range): BP systolic 124–144; BP diastolic 80–95; PULSE 66–97; RESP 18; TEMP 36–36.7; O2SAT 97–99
[2024-04-23 07:36] LABS: Hematocrit 35.3 % (37.0-47.0); Hemoglobin 11.8 g/dL (12.0-15.0); Mean Corpuscular HGB Conc 33.4 g/dl (32-36); Mean Corpuscular Hemoglobin 26.6 pg (26-34); Mean Corpuscular Volume 79.7 fl (80-100); Mean Platelet Volume 9.3 fl (7.4-10.4); Platelet Count Result 282 k/mm3 (150-375); Red Blood Count 4.43 M/mm3 (4.2-5.4); Red Cell Distribution Width 17.4 % (11.5-14.5); White Blood Count 12.5 K/mm3 (4.5-10.0)
[2024-04-23 07:54] LABS: Glucose Point of Care 145 mg/dl (65-105)
[2024-04-23] MEDS: BENZONATATE 100 MG CAPSULE PO (08:05)
[2024-04-23] MEDS: lisinopriL 20 MG TABLET PO (08:05)
[2024-04-23] MEDS: ATORVASTATIN 10 MG TABLET PO (08:06)
[2024-04-23] MEDS: METOPROLOL SUCCINATE EXT REL 25 MG TABCR PO ×2 (08:06→20:27)
[2024-04-23] MEDS: guaiFENesin 12 HR 600 MG TABCR PO ×2 (08:06→20:27)
[2024-04-23] MEDS: ASCORBIC ACID 500 MG TABLET 1000 MG PO (08:06)
[2024-04-23 08:13] LABS: Alanine Aminotransferase 18 U/L (6-35); Alkaline Phosphatase 66 U/L (38-126); Anion Gap 11 mmol/L (4-12); Aspartate Amino Transferase 20 U/L (14-36); Bilirubin,Total 0.7 mg/dL (0.2-1.3); Blood Urea Nitrogen 11 mg/dL (7-17); Calcium 6.4 mg/dL (8.4-10.2); Carbon Dioxide 20 mmol/L (22-30); Chloride 110 mmol/L (98-107); Estimated CRCL calculation 65 ml/min; Estimated Glomerular Filt Rate > 60; Glucose 150 mg/dL (65-110); Potassium 3.6 mmol/L (3.4-5.0); Sodium 141 mmol/L (137-145)
[2024-04-23] MEDS: AZITHROMYCIN 500 MG/NS 250 ML 500 MG/250 ML BAG 250 MG IVPB (09:31)
[2024-04-23 11:39] LABS: Glucose Point of Care 150 mg/dl (65-105)
--- NOTE | 2024-04-23 15:05 | PM.IMPN ---
Progress Note: A&P Assessment and Plan (1) Pneumonia: Qualifiers: Pneumonia type: due to influenza A virus Qualified Code(s): J10.00 - Influenza due to other identified influenza virus with unspecified type of pneumonia Code(s): J18.9 - Pneumonia, unspecified organism Status: Acute Assessment and Plan: - Did not meet SIRS criteria, WBC only. - CXR: Airspace opacities at the lung bases, consistent with atelectasis versus pneumonia. - risk factors and complicating factors: Flu - started on CAP tx: ceftriaxone and azithromycin on 04/19, transitioned to levaquin on 04/23 - MRSA PCR negative - Sputum culture: preliminary - lower resp tract - Viral PCR: +influenza - Blood cultures obtained on 04/18: NGTD - no supplemental O2 requirement at this time - IS and pep therapy - Monitor vital signs, I&Os, neuro status and patient is a fall risk - Follow WBC, serum electrolytes, temperature curves and cultures 04/21: Continues to endorse SOB with productive cough. Lung sounds remain coarse but improved from yesterday. Vitals stable. Remains on room air. 04/22: Shortness of breath has improved. Continues to endorse a cough and increased congestion. Lungs sounds have improved but remain coarse in the bases. Vitals stable on room air. 04/23: Shortness of breath continues to improve however lung sounds are more coarse on auscultation and patient had a rise in her WBC on am labs. Spoke with [facility] pharmacy and will transition patient to levaquin. (2) Influenza: Code(s): J11.1 - Influenza due to unidentified influenza virus with other respiratory manifestations Status: Acute Assessment and Plan: - tested positive for influenza A on 04/19 - CXR concerning for bibasilar pneumonia - patient out of the window for Tamiflu, discontinued - supportive care: Tylenol p.r.n. Mucinex ashutosh DuoNeb p.r.n. Tessalon Perles p.r.n. Lozenge p.r.n. - monitor WBC/CBC - currently not requiring increased supplemental O2 (3) Acute kidney injury: Code(s): N17.9 - Acute kidney failure, unspecified Status: Acute Assessment and Plan: - creatinine 3.45 and GFR 13, previously 1.0 and GFR 54 on 01/14/2024. Patient had nausea (very poor PO intake over the last 5+ days) and diarrhea for the last few days (primarily on Tuesday), suspect injury secondary to hypovolemia. - BUN/Cr 11/0.73 on am labs - CT abd/pelvis: 1. Bibasilar lung disease most suspicious for pneumonia. No acute intra-abdominal/pelvic process. 2. Unchanged large right staghorn calculus without hydronephrosis. 3. Chronic left recto cutaneous fistula. - IV fluids discontinued as patient is drinking water - trend renal function - avoid nephrotoxic medications - renally dose medications - monitor I/O Resolved. (4) Type 2 diabetes mellitus without complications: Qualifiers: Diabetes mellitus residential insulin use: without intermission coordinator use Qualified Code(s): E11.9 - Type 2 diabetes mellitus without complications Code(s): E11.9 - Type 2 diabetes mellitus without complications Status: Chronic Assessment and Plan: - hypoglycemia protocol - POC blood glucose ACHS - home medication: hold Januvia - correct regimen ordered - high dose TIDWM, based off BMI - A1C 5.4% on 01/14/2024 (5) Hypertension: Qualifiers: Hypertension type: essential hypertension Qualified Code(s): I10 - Essential (primary) hypertension Code(s): I10 - Essential (primary) hypertension Status: Chronic Assessment and Plan: - chronic, currently borderline hypotensive - Continue metoprolol 25 mg BID - Resumed Lisinopril as ANN resolved - Blood pressures remain stable, continue to monitor (6) Atrial fibrillation: Code(s): I48.91 - Unspecified atrial fibrillation Status: Acute Assessment and Plan: Chronic, continue home medications - metoprolol 25 mg BID - Xarelto 20 mg daily - monitor 04/23: Patient HR in the 150s overnight requiring 5 mg IV metoprolol x1. She remains on her home metoprolol 25 mg BID and HR remain stable at this time. Patient denies chest pain and palpitations. Plan Diet: Heart healthy GI Prophylaxis: Not currently indicated DVT Prophylaxis: Xarelto Lines: Peripheral Code Status: Full code Time Spent With Patient Time with patient: 25 - 35 minutes Subjective Date/time seen: 04/23/24 15:05 Interval history: 73 y/o F presents here with nausea, diarrhea, and cough with PMH of paroxysmal atrial flutter, chronic anticoagulation, diabetes, iron deficiency anemia, hydradenitis, hypertension, and hyperlipidemia. Patient is pleasant sitting up in her chair. She states that her shortness of breath has improved and is present primarily when she has a coughing episode. She is no longer endorsing diarrhea. She did develop afib RVR overnight requiring IV metoprolol but has had a stable heart rate since that time. She has no other complaints denying chest pain, palpitations, nausea/vomiting, abdominal pain, dizziness adn lightheadedness. Review of Systems Review of Systems: All systems reviewed & are unremarkable except as noted in HPI and below Exam Narrative: AF HR 87 RR 18 SpO2 97 BP 131/81 General: female in no acute respiratory distress who is nontoxic appearing, sitting up in chair HEENT: Normocephalic. Atraumatic. Extraocular movement intact. Sclera clear and anicteric. No facial asymmetry. Chest: Lungs remain coarse to auscultation bilaterally in the bases. CV: Heart was regular rate and rhythm. S1-S2. No murmurs, gallops, or rubs. Abd: Abdomen was soft. Nontender. Nondistended. Positive bowel sounds. Ext: No clubbing, cyanosis, or edema. 2+ DP pulses bilaterally. Neuro: Patient is alert and oriented x4. Speech is clear. Objective Data Vital Signs Vital Signs: Vital Signs - 24 hr 04/22/24 16:03 04/22/24 18:45 04/22/24 18:47 Temperature 97.8 F Pulse Rate 90 156 H 127 H Respiratory Rate 20 Blood Pressure 138/66 Pulse Oximetry 97 Oxygen Delivery 04/22/24 20:00 04/22/24 20:20 04/22/24 21:37 Temperature 98.1 F Pulse Rate 119 H 108 H 93 Respiratory Rate 18 Blood Pressure 147/72 H Pulse Oximetry 96 Oxygen Delivery 04/23/24 00:00 04/23/24 04:00 04/23/24 06:00 Temperature 98.0 F Pulse Rate 86 85 68 Respiratory Rate 18 Blood Pressure 124/80 Pulse Oximetry 98 Oxygen Delivery 04/23/24 08:00 04/23/24 08:05 04/23/24 08:05 Temperature Pulse Rate 90 94 Respiratory Rate Blood Pressure 137/95 H Pulse Oximetry 97 Oxygen Delivery Room Air 04/23/24 08:06 04/23/24 12:02 04/23/24 14:00 Temperature 98.1 F Pulse Rate 94 91 87 Respiratory Rate 18 Blood Pressure 131/81 Pulse Oximetry 97 Oxygen Delivery Intake/Output Intake/Output: Intake & Output 04/20/24 04/21/24 04/22/24 04/23/24 23:59 23:59 23:59 23:59 Intake Total 3760 1510 2430 860 Output Total 550 Balance 3210 1510 2430 860 Meds/Results Medications: Active Medications Generic Name Dose Route Start Last Admin Trade Name Freq PRN Reason Stop Dose Admin Acetaminophen 650 mg 04/19/24 13:21 Acetaminophen 325 Mg Tablet PO Q4H PRN Mild Pain (1-3) or Fever Albuterol/Ipratropium 3 ml 04/19/24 14:04 Ipratropium 0.5 Mg/Albuterol Sulfate 2.5 Mg Ampul.Neb 3 Ml INHALATION Q6HRT PRN Shortness Of Breath Or Wheezing Ascorbic Acid 1,000 mg 04/20/24 09:00 04/23/24 08:06 Ascorbic Acid 500 Mg Tablet PO 1,000 mg DAILY ASHUTOSH Administration Atorvastatin Calcium 10 mg 04/20/24 09:00 04/23/24 08:06 Atorvastatin 10 Mg Tablet PO 10 mg DAILY ASHUTOSH Administration Benzocaine 1 lozenge 04/19/24 14:04 Benzocaine/Menthol (*Bkc) 18 Ea Lozenge PO PRN PRN Sore Throat Benzonatate 100 mg 04/19/24 14:04 04/23/24 08:05 Benzonatate 100 Mg Capsule PO 100 mg TID PRN Administration cough Dextrose 12.5 gm 04/19/24 14:04 Dextrose 50% 25 Gm/50 Ml Syringe IV PUSH PRN PRN Hypoglycemia Protocol Ferrous Sulfate 325 mg 04/20/24 09:00 04/22/24 08:09 Ferrous Sulfate [address] BY MOUTH 325 mg Q48H ASHUTOSH Administration Glucagon 1 mg 04/19/24 14:04 Glucagon For Inj 1 Mg Vial IM PRN PRN Hypoglycemia Protocol Glucose 15 gm 04/19/24 14:04 Glucose Oral Gel 15 Gm Of Glucse In 37.5 Gm Tube PO PRN PRN Hypoglycemia Protocol Guaifenesin 600 mg 04/19/24 14:15 04/23/24 08:06 Guaifenesin 12 Hr 600 Mg Tabcr PO 600 mg Q12HR ASHUTOSH Administration Dextrose 1,000 mls @ 100 mls/hr 04/19/24 14:04 Dextrose 5% 1,000 Ml IVPB PRN PRN Hypoglycemia Protocol Insulin Aspart 4 - 8 units 04/19/24 17:00 04/23/24 11:43 Insulin Aspart (*Bkc) 100 Units/Ml SUB-Q Not Given TIDWM [facility] Protocol Levofloxacin 750 mg 04/23/24 15:00 Levofloxacin 750 Mg Tablet PO DAILY@1500 [facility] Lisinopril 20 mg 04/21/24 09:00 04/23/24 08:05 Lisinopril 20 Mg Tablet PO 20 mg DAILY ASHUTOSH Administration Metoprolol Succinate 25 mg 04/19/24 21:00 04/23/24 08:06 Metoprolol Succinate Ext Rel 25 Mg Tabcr PO 25 mg Q12HR ASHUTOSH Administration Ondansetron HCl 4 mg 04/19/24 13:21 Ondansetron Inj 4 Mg/2 Ml Vial IV PUSH Q4H PRN Nausea Rivaroxaban 20 mg 04/20/24 18:00 04/22/24 17:02 Rivaroxaban 20 Mg Tablet PO 20 mg QPM ASHUTOSH Administration Radiology Results: ITS Impressions Abdomen/Pelvis CT 04/19/24 09:32 IMPRESSION: 1. Bibasilar lung disease most suspicious for pneumonia. No acute intra-abdominal/pelvic process. 2. Unchanged large right staghorn calculus without hydronephrosis. 3. Chronic left recto cutaneous fistula. Chest X-Ray 04/23/24 14:51 IMPRESSION: Mild pulmonary vascular congestion with bibasilar infiltrates, as detailed above. Labs Labs: Laboratory Results - last 24 hr 04/22/24 04/22/24 04/23/24 16:46 20:41 06:37 WBC 12.5 H RBC 4.43 Hgb 11.8 L Hct 35.3 L MCV 79.7 L MCH 26.6 MCHC 33.4 RDW 17.4 H Plt Count 282 MPV 9.3 Sodium 141 Potassium 3.6 Chloride 110 H Carbon Dioxide 20 L Anion Gap 11 BUN 11 Creatinine 0.73 Estim Creat Clear Calc 65 Estimated GFR > 60 Glucose 150 H POC Capillary Glucose 129 H 191 H Calcium 6.4 L Total Bilirubin 0.7 AST 20 ALT 18 Alkaline Phosphatase 66 Total Protein 7.0 Albumin 3.0 L 04/23/24 04/23/24 07:34 11:37 WBC RBC Hgb Hct MCV MCH MCHC RDW Plt Count MPV Sodium Potassium Chloride Carbon Dioxide Anion Gap BUN Creatinine Estim Creat Clear Calc Estimated GFR Glucose POC Capillary Glucose 145 H 150 H Calcium Total Bilirubin AST ALT Alkaline Phosphatase Total Protein Albumin Quality VTE Prophylaxis VTE prophylaxis: pharmacologic ordered
[2024-04-23] MEDS: levoFLOXacin 750 MG TABLET PO (15:59)
[2024-04-23 16:55] LABS: Glucose Point of Care 135 mg/dl (65-105)
[2024-04-23] MEDS: RIVAROXABAN 20 MG TABLET PO (17:12)
[2024-04-23 21:35] LABS: Glucose Point of Care 140 mg/dl (65-105)
--- NOTE | 2024-04-23 23:29 | ECG_ITS ---
Test Date: 2024-04-23 23:39:38 Measurements Intervals Jeremiah Rate: 99 P: 0 MO: 0 QRS: 13 QRSD: 89 T: 31 QT: 362 QTc: 466 Interpretive Statements SINUS RHYTHM WITH FREQUENT ATRIAL AND VENTRICULAR PREMATURE COMPLEXES BORDERLINE R WAVE PROGRESSION, ANTERIOR LEADS BORDERLINE T WAVE ABNORMALITY- ANTERIOR LEADS BASELINE ARTIFACT- II, III, AVR, AVL, AVF ABNORMAL ECG Compared to ECG 04/20/2024 05:34:15 FREQUENT ATRIAL AND VENTRICULAR PREMATURE COMPLEXES NOW PRESENT Electronically Signed On 04-24-2024 07:00:39 VENEER SAMPLE [employer]KER by Abdias Colon D.O.
[2024-04-24] VITALS (13 sets, daily range): BP systolic 123–141; BP diastolic 67–92; PULSE 62–161; RESP 18–20; TEMP 35.7–36.9; O2SAT 95–99
--- NOTE | 2024-04-24 | ECHO_ITS ---
Patient Info Name: Tracy Krueger Age: 73 years : 1950 Gender: Female Ht: 66 in Wt: 194 lbs BSA: 2.05 m2 HR: 147 bpm BP: 141 / 92 mmHg Technical Quality: Fair Exam Date: 04/24/2024 2:57 PM Exam Location: Echo Lab Patient Status: Inpatient Admit Date: 04/20/2024 Staff Ordering Physician: Marcia Adan PA-C Damage Prevention Coordinator: Gabe Gonzalez RDCS Attending Provider: Marcia Adan PA-C Referring Physician: Loco RANDALL; Exam Type: CA echo doppler color flow Study Info Indications - AFIB Complete two-dimensional, color flow and Doppler transthoracic echocardiogram is performed. Summary 1. Technically difficult study. 2. Left ventricular chamber dimension is normal. 3. Left ventricular systolic function is normal, estimated at 55-60%. 4. There is moderately increased left ventricular wall thickness. 5. The left ventricular diastolic function is grade I diastolic dysfunction. 6. Right ventricular systolic function is normal. 7. Left atrial chamber dimension is moderately enlarged. 8. Right atrial chamber dimension is mildly enlarged. 9. There is mild tricuspid valve regurgitation. 10. There is trivial pericardial effusion. Left Ventricle Left ventricular chamber dimension is normal. Left ventricular systolic function is normal, estimated at 55-60%. There is moderately increased left ventricular wall thickness. The left ventricular diastolic function is grade I diastolic dysfunction. Right Ventricle Right ventricular chamber dimension is normal. Right ventricular systolic function is normal. Left Atria Left atrial chamber dimension is moderately enlarged. Right Atria Right atrial chamber dimension is mildly enlarged. Atrial Septum Intact interatrial septum visualized by color flow imaging. Aortic Valve There is no aortic valve stenosis. There is no aortic valve regurgitation. There is moderate aortic valve calcification. Pulmonic Valve The pulmonic valve is not well visualized. There is trace pulmonic regurgitation. Mitral Valve There is trace mitral valve regurgitation. The mitral valve annulus is moderately calcified. Tricuspid Valve There is mild tricuspid valve regurgitation. Pericardium/Pleural There is trivial pericardial effusion. Inferior Vena Cava Inferior vena cava is not well visualized. Aorta The aortic root size at the sinus of Valsalva is normal. Left Ventricular Outflow Tract Name Value Normal LVOT 2D LVOT Diameter 2.2 cm LVOT Doppler LVOT Peak Gradient 3 mmHg LVOT Mean Gradient 2 mmHg LVOT VTI 20 cm LVOT VTI/AV VTI Ratio 0.7 LVOT Stroke Volume 77 ml LVOT CO 17.6 l/min LVOT CI 8.6 l/min/m2 Pulmonic Valve Name Value Normal RVOT Doppler RVOT Peak Gradient 1 mmHg PV Doppler PV Peak Gradient 2 mmHg Mitral Valve Name Value Normal MV Doppler MV Decel Douglas 410 cm/s2 MV PHT 48 ms MV Area (PHT) 4.6 cm2 4.0-5.0 MV Diastolic Function MV E Peak Velocity 67 cm/s MV A Peak Velocity 84 cm/s MV E/A 0.8 MV Decel Time 164 ms MV Annular TDI MV E/e' (Septal) 7.7 <=8.0 MV E/e' (Lateral) 7.6 <=8.0 MV E/e' (Average) 7.6 Aorta Name Value Normal Ascending Aorta Ao Root Diameter (MM) 3.0 cm Ao Root Diam Index (MM) 1.5 cm/m2 Aortic Valve Name Value Normal AV Doppler AV Peak Velocity 153 cm/s AV Peak Gradient 9 mmHg AV Mean Gradient 5 mmHg AV VTI 29 cm AV Area (Cont Eq VTI) 2.7 cm2 >=3.0 AV Area (Cont Eq Ryan) 2.3 cm2 AV Regurgitation 2D LVOT Area 3.8 cm2 Ventricles Name Value Normal LV Dimensions 2D/MM IVS Diastolic Thickness (2D) 1.6 cm 0.6-1.0 LVID Diastole (2D) 3.8 cm 3.8-5.2 LVIW Diastolic Thickness (2D) 2.4 cm 0.6-0.9 LVID Systole (2D) 3.0 cm 2.2-3.5 LVOT Diameter 2.2 cm LV Mass (2D Cubed) 358.41 g 67.00-162.00 LV Mass Index (2D Cubed) 175 g/m2 43-95 Relative Wall Thickness (2D) 1.27 LV Fractional Shortening/Ejection Fraction 2D/MM LV Fractional Shortening (2D) 21 % 27-45 LV EF (2D Teicholz) 43 % 54-74 LV Diastolic Volume (4C MOD) 111 ml LV EF (4C MOD) 50 % LV Diastolic Volume (2C MOD) 108 ml LV EF (2C MOD) 61 % LV Diastolic Volume (BP MOD) 112 ml 46-106 LV Diastolic Volume Index (BP MOD) 54 ml/m2 29-61 LV Systolic Volume (BP MOD) 52 ml 14-42 LV Systolic Volume Index (BP MOD) 25 ml/m2 8-24 LV EF (BP MOD) 53 % 54-74 LV Diastolic Length (4C) 6.9 cm LV Systolic Length (4C) 6.5 cm LV Stroke Volume (4C MOD) 56 ml Atria Name Value Normal LA Dimensions LA Dimension (MM) 4.4 cm 2.7-3.8 LA Volume (4C A-L) 78 ml LA Volume (BP A-L) 87 ml RA Dimensions RA Area (4C) 21.0 cm2 <=18.0 Report Signatures
[2024-04-24 06:47] LABS: Hematocrit 34.1 % (37.0-47.0); Hemoglobin 10.7 g/dL (12.0-15.0); Mean Corpuscular HGB Conc 31.4 g/dl (32-36); Mean Corpuscular Hemoglobin 25.1 pg (26-34); Platelet Count Result 301 k/mm3 (150-375); Red Blood Count 4.26 M/mm3 (4.2-5.4); Red Cell Distribution Width 17.3 % (11.5-14.5); White Blood Count 10.1 K/mm3 (4.5-10.0)
[2024-04-24 07:02] LABS: Alanine Aminotransferase 16 U/L (6-35); Albumin Level 2.9 g/dL (3.5-5.1); Alkaline Phosphatase 60 U/L (38-126); Anion Gap 8 mmol/L (4-12); Aspartate Amino Transferase 19 U/L (14-36); Bilirubin,Total 0.8 mg/dL (0.2-1.3); Blood Urea Nitrogen 9 mg/dL (7-17); Calcium 6.2 mg/dL (8.4-10.2); Carbon Dioxide 24 mmol/L (22-30); Chloride 107 mmol/L (98-107); Estimated CRCL calculation 70 ml/min; Estimated Glomerular Filt Rate > 60; Glucose 101 mg/dL (65-110); Potassium 3.8 mmol/L (3.4-5.0); Sodium 139 mmol/L (137-145)
[2024-04-24] MEDS: lisinopriL 20 MG TABLET PO (07:46)
[2024-04-24] MEDS: ASCORBIC ACID 500 MG TABLET 1000 MG PO (07:47)
[2024-04-24] MEDS: FERROUS SULFATE 325 MG TABLET DR BY MOUTH (07:47)
[2024-04-24] MEDS: METOPROLOL SUCCINATE EXT REL 25 MG TABCR PO (07:47)
[2024-04-24] MEDS: guaiFENesin 12 HR 600 MG TABCR PO ×2 (07:47→20:18)
[2024-04-24] MEDS: ATORVASTATIN 10 MG TABLET PO (07:47)
--- NOTE | 2024-04-24 07:56 | P.PNIM_ITS ---
Progress Note: A&P Assessment and Plan (1) Atrial fibrillation: Code(s): I48.91 - Unspecified atrial fibrillation Status: Acute Assessment and Plan: Chronic, continue home medications - metoprolol 25 mg BID - Xarelto 20 mg daily - monitor 04/23: Patient HR in the 150s overnight requiring 5 mg IV metoprolol x1. She remains on her home metoprolol 25 mg BID and HR remain stable at this time. Patient denies chest pain and palpitations. 04/24: Patient HR in the 150-160s this morning. Patient remained asymptomatic denying chest pain and palpitations. Morning dose of metoprolol 25 mg PO given and 5 mg IV metoprolol. HR returned to normal rate. Metoprolol dose increased to 50 mg BID, starting tonight. Patient follows general cleaner, Dr. Gray. (2) Lower extremity edema: Code(s): R60.0 - Localized edema Status: Acute Assessment and Plan: Patient has developed pitting edema to the lower extremity with mild orthopnea Chest XR 04/23: Mild pulmonary vascular congestion with bibasilar infiltrates, as detailed above. Given 40 IV lasix x1 Jim hose Echo ordered Monitor vital signs, I&Os, BUN/creatinine, daily weights, neuro status and patient is a fall risk Monitor serum electrolytes, Keep serum Potassium>4 and serum Magnesium>2 and CBC (3) Pneumonia: Qualifiers: Pneumonia type: due to influenza A virus Qualified Code(s): J10.00 - Influenza due to other identified influenza virus with unspecified type of pneumonia Code(s): J18.9 - Pneumonia, unspecified organism Status: Acute Assessment and Plan: - Did not meet SIRS criteria, WBC only. - CXR: Airspace opacities at the lung bases, consistent with atelectasis versus pneumonia. - risk factors and complicating factors: Flu - started on CAP tx: ceftriaxone and azithromycin on 04/19, transitioned to levaquin on 04/23 - MRSA PCR negative - Sputum culture: preliminary - lower resp tract - Viral PCR: +influenza - Blood cultures obtained on 04/18: NGTD - no supplemental O2 requirement at this time - IS and pep therapy - Monitor vital signs, I&Os, neuro status and patient is a fall risk - Follow WBC, serum electrolytes, temperature curves and cultures 04/21: Continues to endorse SOB with productive cough. Lung sounds remain coarse but improved from yesterday. Vitals stable. Remains on room air. 04/22: Shortness of breath has improved. Continues to endorse a cough and increased congestion. Lungs sounds have improved but remain coarse in the bases. Vitals stable on room air. 04/23: Shortness of breath continues to improve however lung sounds are more coarse on auscultation and patient had a rise in her WBC on am labs. Spoke with ID pharmacy and will transition patient to [facility]. Repeat Chest XR: Mild pulmonary vascular congestion with bibasilar infiltrates, as detailed above. 04/24: WBC improved. Continues to have shortness of breath however lungs sounds improving on exam. (4) Influenza: Code(s): J11.1 - Influenza due to unidentified influenza virus with other respiratory manifestations Status: Acute Assessment and Plan: - tested positive for influenza A on 04/19 - CXR concerning for bibasilar pneumonia - patient out of the window for Tamiflu, discontinued - supportive care: Tylenol p.r.n. Mucinex ashutosh DuoNeb p.r.n. Tessalon Perles p.r.n. Lozenge p.r.n. - monitor WBC/CBC - currently not requiring increased supplemental O2 (5) Acute kidney injury: Code(s): N17.9 - Acute kidney failure, unspecified Status: Acute Assessment and Plan: - creatinine 3.45 and GFR 13, previously 1.0 and GFR 54 on 01/14/2024. Patient had nausea (very poor PO intake over the last 5+ days) and diarrhea for the last few days (primarily on Tuesday), suspect injury secondary to hypovolemia. - BUN/Cr 9/0.68 on am labs - CT abd/pelvis: 1. Bibasilar lung disease most suspicious for pneumonia. No acute intra- abdominal/pelvic process. 2. Unchanged large right staghorn calculus without hydronephrosis. 3. Chronic left recto cutaneous fistula. - IV fluids discontinued as patient is drinking water - trend renal function - avoid nephrotoxic medications - renally dose medications - monitor I/O Resolved. 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 insulin use: without fci use Qualified Code(s): E11.9 - Type 2 diabetes mellitus without complications Code(s): E11.9 - Type 2 diabetes mellitus without complications Status: Chronic Assessment and Plan: - hypoglycemia protocol - POC blood glucose ACHS - home medication: hold Januvia - correct regimen ordered - high dose TIDWM, based off BMI - A1C 5.4% on 01/14/2024 (7) Hypertension: Qualifiers: Hypertension type: essential hypertension Qualified Code(s): I10 - Essential (primary) hypertension Code(s): I10 - Essential (primary) hypertension Status: Chronic Assessment and Plan: - chronic - metoprolol 25 mg BID, dose increased to 50 mg BID 04/15 afib RVR - Resumed Lisinopril as ANN resolved - Blood pressures remain stable, continue to monitor Plan Diet: Heart healthy GI Prophylaxis: Not currently indicated DVT Prophylaxis: Xarelto Lines: Peripheral Code Status: Full code Time Spent With Patient Time with patient: Greater than 35 minutes Subjective Date/time seen: 04/24/24 07:56 Interval history: 73 y/o F presents here with nausea, diarrhea, and cough with PMH of paroxysmal atrial flutter, chronic anticoagulation, diabetes, iron deficiency anemia, hydradenitis, hypertension, and hyperlipidemia. Patient HR in the 150-160s this morning, reported to patients room at that time. Patient remained asymptomatic denying chest pain and palpitations. Morning dose of metoprolol 25 mg PO given and 5 mg IV metoprolol. HR returned to normal rate. Metoprolol dose increased to 50 mg BID, starting tonight. Patient notes increased lower extremity edema and increased shortness of breath with lying flat. Possible fluid overload as she was receiving IV antibiotics for the pneumonia which has been transitioned to orals. Lasix 40 IV given x1. Will obtain an echo to evaluate heart function. Patient has no other complaints. Continued to monitor patients tele and she remained in atrial fibrillation with HR mainly in the 90-100s. She remains asymptomatic denying chest pain and palpitations. Review of Systems Review of Systems: All systems reviewed & are unremarkable except as noted in HPI and below Exam Narrative: AF HR 92 RR 18 SPO2 99 BP 123/67 General: female in no acute respiratory distress who is nontoxic appearing, sitting up in chair HEENT: Normocephalic. Atraumatic. Extraocular movement intact. Sclera clear and anicteric. No facial asymmetry. Chest: Lungs are diminished to auscultation bilaterally in the bases with slight coarseness. CV: Heart was regular rate with irregular irregular rhythm. Abd: Abdomen was soft. Nontender. Nondistended. Positive bowel sounds. Ext: No clubbing, cyanosis, or edema. 2+ DP pulses bilaterally. Neuro: Patient is alert and oriented x4. Speech is clear. Objective Data Vital Signs Vital Signs: Vital Signs - 24 hr 04/23/24 08:00 04/23/24 08:05 04/23/24 08:05 Temperature Pulse Rate 90 94 Respiratory Rate Blood Pressure 137/95 H Pulse Oximetry 97 Oxygen Delivery Room Air 04/23/24 08:06 04/23/24 12:02 04/23/24 14:00 Temperature 98.1 F Pulse Rate 94 91 87 Respiratory Rate 18 Blood Pressure 131/81 Pulse Oximetry 97 Oxygen Delivery 04/23/24 14:17 04/23/24 15:15 04/23/24 16:00 Temperature Pulse Rate 82 Respiratory Rate Blood Pressure Pulse Oximetry Oxygen Delivery Room Air Room Air 04/23/24 20:00 04/23/24 20:05 04/23/24 20:27 Temperature 96.8 F L Pulse Rate 97 66 68 Respiratory Rate 18 Blood Pressure 144/94 H Pulse Oximetry 99 Oxygen Delivery 04/24/24 00:00 04/24/24 04:00 04/24/24 04:15 Temperature 98.5 F Pulse Rate 102 H 91 104 H Respiratory Rate 18 Blood Pressure 141/92 H Pulse Oximetry 98 Oxygen Delivery 04/24/24 07:47 Temperature Pulse Rate 151 H Respiratory Rate Blood Pressure Pulse Oximetry Oxygen Delivery Intake/Output Intake/Output: Intake & Output 04/21/24 04/22/24 04/23/24 04/24/24 23:59 23:59 23:59 23:59 Intake Total 1510 2430 1100 987 Balance 1510 2430 1100 987 Meds/Results Medications: Active Medications Generic Name Dose Route Start Last Admin Trade Name Freq PRN Reason Stop Dose Admin Acetaminophen 650 mg 04/19/24 13:21 Acetaminophen 325 Mg Tablet PO Q4H PRN Mild Pain (1-3) or Fever Albuterol/Ipratropium 3 ml 04/19/24 14:04 Ipratropium 0.5 Mg/Albuterol Sulfate 2.5 Mg Ampul.Neb 3 Ml INHALATION Q6HRT PRN Shortness Of Breath Or Wheezing Ascorbic Acid 1,000 mg 04/20/24 09:00 04/24/24 07:47 Ascorbic Acid 500 Mg Tablet PO 1,000 mg DAILY ASHUTOSH Administration Atorvastatin Calcium 10 mg 04/20/24 09:00 04/24/24 07:47 Atorvastatin 10 Mg Tablet PO 10 mg DAILY ASHUTOSH Administration Benzocaine 1 lozenge 04/19/24 14:04 Benzocaine/Menthol (*Bkc) 18 Ea Lozenge PO PRN PRN Sore Throat Benzonatate 100 mg 04/19/24 14:04 04/23/24 08:05 Benzonatate 100 Mg Capsule PO 100 mg TID PRN Administration cough Dextrose 12.5 gm 04/19/24 14:04 Dextrose 50% 25 Gm/50 Ml Syringe IV PUSH PRN PRN Hypoglycemia Protocol Ferrous Sulfate 325 mg 04/20/24 09:00 04/24/24 07:47 Ferrous Sulfate [address] BY MOUTH 325 mg Q48H ASHUTOSH Administration Glucagon 1 mg 04/19/24 14:04 Glucagon For Inj 1 Mg Vial IM PRN PRN Hypoglycemia Protocol Glucose 15 gm 04/19/24 14:04 Glucose Oral Gel 15 Gm Of Glucse In 37.5 Gm Tube PO PRN PRN Hypoglycemia Protocol Guaifenesin 600 mg 04/19/24 14:15 04/24/24 07:47 Guaifenesin 12 Hr 600 Mg Tabcr PO 600 mg Q12HR ASHUTOSH Administration Dextrose 1,000 mls @ 100 mls/hr 04/19/24 14:04 Dextrose 5% 1,000 Ml IVPB PRN PRN Hypoglycemia Protocol Insulin Aspart 4 - 8 units 04/19/24 17:00 04/23/24 17:12 Insulin Aspart (*Bkc) 100 Units/Ml SUB-Q Not Given TIDWM [facility] Protocol Levofloxacin 750 mg 04/23/24 15:00 04/23/24 15:59 Levofloxacin 750 Mg Tablet PO 750 mg DAILY@1500 ASHUTOSH Administration Lisinopril 20 mg 04/21/24 09:00 04/24/24 07:46 Lisinopril 20 Mg Tablet PO 20 mg DAILY ASHUTOSH Administration Metoprolol Succinate 50 mg 04/24/24 09:00 Metoprolol Succinate Ext Rel 50 Mg Tabcr PO Q12HR ASHUTOSH Ondansetron HCl 4 mg 04/19/24 13:21 Ondansetron Inj 4 Mg/2 Ml Vial IV PUSH Q4H PRN Nausea Rivaroxaban 20 mg 04/20/24 18:00 04/23/24 17:12 Rivaroxaban 20 Mg Tablet PO 20 mg QPM ASHUTOSH Administration Radiology Results: ITS Impressions Abdomen/Pelvis CT 04/19/24 09:32 IMPRESSION: 1. Bibasilar lung disease most suspicious for pneumonia. No acute intra- abdominal/pelvic process. 2. Unchanged large right staghorn calculus without hydronephrosis. 3. Chronic left recto cutaneous fistula. Chest X-Ray 04/23/24 14:51 IMPRESSION: Mild pulmonary vascular congestion with bibasilar infiltrates, as detailed above. Labs Labs: Laboratory Results - last 24 hr 04/23/24 04/23/24 04/23/24 06:37 11:37 16:50 WBC RBC Hgb Hct MCV MCH MCHC RDW Plt Count MPV Sodium 141 Potassium 3.6 Chloride 110 H Carbon Dioxide 20 L Anion Gap 11 BUN 11 Creatinine 0.73 Estim Creat Clear Calc 65 Estimated GFR > 60 Glucose 150 H POC Capillary Glucose 150 H 135 H Calcium 6.4 L Total Bilirubin 0.7 AST 20 ALT 18 Alkaline Phosphatase 66 Total Protein 7.0 Albumin 3.0 L 04/23/24 04/24/24 20:05 06:04 WBC 10.1 H RBC 4.26 Hgb 10.7 L Hct 34.1 L MCV 80.0 MCH 25.1 L D MCHC 31.4 L RDW 17.3 H Plt Count 301 MPV 9.0 Sodium 139 Potassium 3.8 Chloride 107 Carbon Dioxide 24 Anion Gap 8 BUN 9 Creatinine 0.68 L Estim Creat Clear Calc 70 Estimated GFR > 60 Glucose 101 POC Capillary Glucose 140 H Calcium 6.2 L Total Bilirubin 0.8 AST 19 ALT 16 Alkaline Phosphatase 60 Total Protein 7.0 Albumin 2.9 L Quality VTE Prophylaxis VTE prophylaxis: pharmacologic ordered
--- NOTE | 2024-04-24 08:00 | PC.NURSE ---
Notified Tisha Adan of heart rate 140-170. Tisha at bedside.
[2024-04-24 08:03] LABS: Glucose Point of Care 132 mg/dl (65-105)
[2024-04-24] MEDS: METOPROLOL TARTRATE INJ 5 MG/5 ML VIAL IV PUSH (08:12)
[2024-04-24] MEDS: FUROSEMIDE INJ 40 MG/4 ML VIAL IV PUSH (08:23)
[2024-04-24 11:37] LABS: Glucose Point of Care 124 mg/dl (65-105)
[2024-04-24] MEDS: levoFLOXacin 750 MG TABLET PO (15:31)
[2024-04-24] MEDS: BENZONATATE 100 MG CAPSULE PO (15:39)
[2024-04-24 16:58] LABS: Glucose Point of Care 115 mg/dl (65-105)
[2024-04-24] MEDS: RIVAROXABAN 20 MG TABLET PO (17:22)
[2024-04-24] MEDS: METOPROLOL SUCCINATE EXT REL 50 MG TABCR PO (20:15)
[2024-04-24 20:54] LABS: Glucose Point of Care 124 mg/dl (65-105)
--- NOTE | 2024-04-24 23:25 | ECG_ITS ---
Test Date: 2024-04-24 23:36:45 Measurements Intervals [place] Rate: 147 P: 0 IN: 0 QRS: -10 QRSD: 87 T: 91 QT: 302 QTc: 472 Interpretive Statements ATRIAL FIBRILLATION WITH RAPID VENTRICULAR RESPONSE BORDERLINE R WAVE PROGRESSION, ANTERIOR LEADS NONSPECIFIC ST & T-WAVE ABNORMALITY- HIGH LATERAL LEADS BASELINE ARTIFACT- I, II, III, AVR, AVL, AVF, V2 ABNORMAL ECG Compared to ECG 04/23/2024 23:39:38 Sinus rhythm no longer present Electronically Signed On 04-25-2024 07:10:11 [employer] by Abdias Colon D.O.
[2024-04-25] VITALS (15 sets, daily range): BP systolic 112–133; BP diastolic 56–78; PULSE 94–143; RESP 16–18; TEMP 35.9–36.6; O2SAT 97–98
--- NOTE | 2024-04-25 00:07 | PM.EVENT ---
Event Note Event Note Event Note: Called by nursing for patient being AFib with RVR Patient denies palpitations or shortness of breath Lung sounds are clear, irregular heart rate, 4+ pitting pedal edema Chest x-ray still showing pulmonary edema with infiltrates, patient received 40 of IV Lasix earlier this morning Echo read pending Will order p.r.n. metoprolol IV Lasix 20 mg Cardiology consultation Critical Care Time Critical Care Time: Yes Total Critical Care Time: Over 35 minute Due to a high probability of clinically significant, life threatening deterioration, the patient required my highest level of preparedness to intervene emergently and I personally spent this critical care time directly and personally managing the patient. This critical care time included obtaining a history; examining the patient; pulse oximetry; ordering and review of studies; arranging urgent treatment with development of a management plan; evaluation of patient's response to treatment; frequent reassessment; and discussions with other providers. It was exclusive of separately billable procedures and treating other patients and teaching time. Please see Assessment and Plan section and the rest of the note for further information on patient assessment and treatment.
[2024-04-25] MEDS: METOPROLOL TARTRATE INJ 5 MG/5 ML VIAL IV PUSH ×3 (00:22→16:47)
[2024-04-25] MEDS: FUROSEMIDE INJ 40 MG/4 ML VIAL 20 MG IV PUSH (00:50)
[2024-04-25 07:31] LABS: Hematocrit 33.3 % (37.0-47.0); Hemoglobin 10.7 g/dL (12.0-15.0); Mean Corpuscular HGB Conc 32.1 g/dl (32-36); Mean Corpuscular Hemoglobin 26.2 pg (26-34); Mean Corpuscular Volume 81.6 fl (80-100); Mean Platelet Volume 9.1 fl (7.4-10.4); Platelet Count Result 311 k/mm3 (150-375); Red Blood Count 4.08 M/mm3 (4.2-5.4); Red Cell Distribution Width 17.4 % (11.5-14.5); White Blood Count 9.3 K/mm3 (4.5-10.0)
[2024-04-25 07:37] LABS: Alanine Aminotransferase 16 U/L (6-35); Alkaline Phosphatase 55 U/L (38-126); Anion Gap 8 mmol/L (4-12); Aspartate Amino Transferase 19 U/L (14-36); Bilirubin,Total 0.8 mg/dL (0.2-1.3); Blood Urea Nitrogen 14 mg/dL (7-17); Calcium 6.2 mg/dL (8.4-10.2); Carbon Dioxide 29 mmol/L (22-30); Chloride 102 mmol/L (98-107); Estimated CRCL calculation 56 ml/min; Estimated Glomerular Filt Rate > 60; Glucose 97 mg/dL (65-110); Potassium 4.2 mmol/L (3.4-5.0); Sodium 139 mmol/L (137-145)
[2024-04-25 08:03] LABS: Glucose Point of Care 95 mg/dl (65-105)
[2024-04-25] MEDS: ASCORBIC ACID 500 MG TABLET 1000 MG PO (08:07)
[2024-04-25] MEDS: guaiFENesin 12 HR 600 MG TABCR PO ×2 (08:08→21:02)
[2024-04-25] MEDS: METOPROLOL SUCCINATE EXT REL 50 MG TABCR PO (08:08)
[2024-04-25] MEDS: ATORVASTATIN 10 MG TABLET PO (08:09)
[2024-04-25] MEDS: lisinopriL 20 MG TABLET PO (08:09)
--- NOTE | 2024-04-25 10:40 | P.CONCA_ITS ---
Assessment and Plan Assessment and plan (1) Atrial fibrillation: Code(s): I48.91 - Unspecified atrial fibrillation Status: Acute Plan 1. Atrial fibrillation with RVR 2. Influenza A 3. Pneumonia 2/2 influenza 4. ANN, now resolved. 2/2 dehydration 5. Hypertension 6. Hyperlipidemia 7. Type 2 diabetes mellitus PLAN: -Atrial fibrillation likely triggered by influenza pneumonia. Should improve as her viral illness improves. Agree with increased dose of Metoprolol, can increase as needed for additional rate control (maximum 200mg daily). -Echocardiogram ordered and pending, will follow up on results. -Continue Xarelto for anticoagulation. History of Present Illness History of Present Illness Consult date/time: 04/25/24 10:40 Requesting physician: Hilaria Spears APRN Consult reason: atrial fibrillation Reason For Visit: Dehydration/Influenza/Acute Kidney Injury/Pneumoni Narrative: We are consulted for atrial fibrillation with RVR. Tracy is a 73 year old patient with paroxysmal atrial fibrillation / atrial flutter, hypertension, hyperlipidemia, diabetes mellitus who was admitted to [facility] on 04/19 with symptomatic influenza pneumonia and ANN from dehydration. We are consulted for atrial fibrillation with RVR. She is on Metoprolol 25mg BID at home, this has been increased to 50mg BID now. She is currently rate controlled. Formerly a [facility] patient, but transitioning to [facility], has upcoming appointment on May 18. Review of Systems 2 Review of Systems: All systems reviewed & are unremarkable except as noted in HPI and below (HPI) PMFSH Past Medical History Medical History Hyperlipidemia JACKELIN (iron deficiency anemia) History of deep venous thrombosis (DVT) of distal vein of left lower extremity (~08/2019) Chronic anticoagulation Atrial flutter, paroxysmal (~08/2019) Type 2 diabetes mellitus with chronic kidney disease Atrial flutter with rapid ventricular response (~08/2019) Renal stone Transaminitis Acute pancreatitis (~08/2019) Hidradenitis Hypertension Surgical History Surgical History History of cholecystectomy (~07/2014) History of tonsillectomy History of section Family History Family History Mother Hypertension Father Diabetes mellitus Family history of diabetes mellitus in first degree relative Sibling Kidney disease Multiple sclerosis Social History Social History Social History: 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 Her daughter and grandchildren live nearby, she sees them regularly. Smoking status: Never smoker Second hand tobacco smoke exposure: No Alcohol intake: never Substance use: never Substance use type: does not use Do You Feel Safe in your Home?: Yes Lack of Transportation: No Lack of Food: Never True Current Housing: I Have Housing Concerned About Future Housing: No Difficulty Paying Gas/Electric Bills: No Difficulty Paying for Meds: No Currently Unemployed: No Education: High School Diploma/GED Difficulty w/ Childcare or Family Care: No Living arrangements: with family Occupation/Education: retired Gender identity (if verbalized by the patient): Female Spiritual care concerns: No Agree to blood products: Yes Meds Home Medications and Allergies Home Medications ?Medication ?Instructions ?Recorded ?Confirmed ?Type blood-glucose meter #1 ea 04/26/19 04/19/24 Rx ascorbic acid (vitamin C) 1,000 mg 1 gm PO DAILY 05/25/19 04/19/24 History tablet ferrous sulfate 325 mg (65 mg 325 mg PO .QOD 05/25/19 04/19/24 History iron) tablet (Feosol) metoprolol succinate 25 mg 25 mg PO BID 10/03/20 04/19/24 History tablet,extended release 24 hr rivaroxaban 20 mg tablet (Xarelto) 20 mg PO Q24H 07/18/23 04/19/24 History atorvastatin 10 mg tablet 10 mg PO DAILY #90 tabs 12/28/23 04/19/24 Rx blood sugar diagnostic (Contour #100 ea 01/18/24 04/19/24 Rx Next Test Strips) sitagliptin phosphate 50 mg tablet 50 mg PO DAILY #90 tabs 01/18/24 04/19/24 Rx (Januvia) lisinopril 20 mg tablet See Rx Instructions .Route 04/23/24 Rx .COMPLEX #90 tabs Allergies Allergy/AdvReac Type Severity Reaction Status Date / Time clindamycin Allergy Unknown Unknown Verified 01/18/24 10:07 Iodinated Contrast Media Allergy Unknown Unknown Verified 01/18/24 10:07 Penicillins Allergy Unknown Unknown Verified 04/19/24 15:52 Sulfa (Sulfonamide Allergy Rash Verified 01/18/24 10:07 Antibiotics) Contrast Media Allergy Unknown SWELLING Uncoded 01/18/24 10:07 AND ITCHING OPTICELL Allergy Unknown SWELLING Uncoded 01/18/24 10:07 Vital Signs Vital Signs - 24 hr 04/24/24 10:48 04/24/24 12:00 04/24/24 14:00 Temperature 35.7 C L Pulse Rate 151 H 107 H 62 Respiratory Rate 18 Blood Pressure 138/91 H 123/67 Pulse Oximetry 97 99 Oxygen Delivery 04/24/24 16:00 04/24/24 20:00 04/24/24 20:15 Temperature Pulse Rate 108 H 97 124 H Respiratory Rate Blood Pressure Pulse Oximetry Oxygen Delivery 04/24/24 21:15 04/25/24 00:00 04/25/24 00:22 Temperature 36.1 C L Pulse Rate 62 141 H 135 H Respiratory Rate 20 Blood Pressure 137/81 Pulse Oximetry 95 Oxygen Delivery 04/25/24 04:00 04/25/24 04:20 04/25/24 08:00 Temperature 36.5 C Pulse Rate 104 H 97 106 H Respiratory Rate 18 Blood Pressure 133/65 Pulse Oximetry 98 Oxygen Delivery 04/25/24 08:07 04/25/24 08:07 04/25/24 08:08 Temperature Pulse Rate 94 94 Respiratory Rate Blood Pressure 121/56 L Pulse Oximetry 98 Oxygen Delivery Room Air Exam 2 Const: General: no acute distress HENMT: Mouth: Yes moist mucous membranes Eyes: General: appearance normal, both eyes and all related structures S clera: sclerae normal Resp: Effort & Inspection: normal respiratory effort Cardio: Rhythm: abnormal rhythm irregularly irregular Neuro: Speech: normal speech Psych: Mental Status: mental status grossly normal Affect: normal affect Results Labs and Meds 04/25/24 06:34 04/25/24 06:34 Lab results: Cardiac Enzymes 04/25/24 Range/Units 06:34 AST 19 (14-36) U/L CBC 04/25/24 Range/Units 06:34 WBC 9.3 (4.5-10.0) K/mm3 RBC 4.08 L (4.2-5.4) M/mm3 Hgb 10.7 L (12.0-15.0) g/dL Hct 33.3 L (37.0-47.0) % Plt Count 311 (150-375) k/mm3 Comprehensive Metabolic Panel 04/25/24 Range/Units 06:34 Sodium 139 (137-145) mmol/L Potassium 4.2 (3.4-5.0) mmol/L Chloride 102 (98-107) mmol/L Carbon Dioxide 29 (22-30) mmol/L BUN 14 D (7-17) mg/dL Creatinine 0.87 (0.7-1.0) mg/dL Glucose 97 (65-110) mg/dL Calcium 6.2 L (8.4-10.2) mg/dL AST 19 (14-36) U/L ALT 16 (6-35) U/L Alkaline Phosphatase 55 (38-126) U/L Total Protein 7.0 (6.3-8.2) g/dL Albumin 3.0 L (3.5-5.1) g/dL Intake and Output 04/24/24 04/25/24 04/25/24 23:59 07:59 15:59 Intake Total 240 340 360 Output Total 100 Balance 240 240 360 Intake: Oral 240 340 360 Output: Urine 100 Other: # Unmeasured Voids 1 1 # Incontinent Voids 6 Number of Bowel Movements Today 1
[2024-04-25 11:27] LABS: Glucose Point of Care 115 mg/dl (65-105)
--- NOTE | 2024-04-25 13:22 | P.PNIM_ITS ---
Progress Note: A&P Assessment and Plan (1) Atrial fibrillation: Code(s): I48.91 - Unspecified atrial fibrillation Status: Acute Assessment and Plan: Chronic, continue home medications - metoprolol 25 mg BID - Xarelto 20 mg daily - monitor 04/23: Patient HR in the 150s overnight requiring 5 mg IV metoprolol x1. She remains on her home metoprolol 25 mg BID and HR remain stable at this time. Patient denies chest pain and palpitations. 04/24: Patient HR in the 150-160s this morning. Patient remained asymptomatic denying chest pain and palpitations. Morning dose of metoprolol 25 mg PO given and 5 mg IV metoprolol. HR returned to normal rate. Metoprolol dose increased to 50 mg BID, starting tonight. Patient follows spray operator, Dr. Gray. 04/25- cardiology following: Atrial fibrillation likely triggered by influenza pneumonia. Should improve as her viral illness improves. Agree with increased dose of Metoprolol, can increase as needed for additional rate control (maximum 200mg daily). -Echocardiogram ordered and pending, will follow up on results. -Continue Xarelto for anticoagulation (2) Lower extremity edema: Code(s): R60.0 - Localized edema Status: Acute Assessment and Plan: Patient has developed pitting edema to the lower extremity with mild orthopnea Chest XR 04/23: Mild pulmonary vascular congestion with bibasilar infiltrates, as detailed above. Given 40 IV lasix x1 Jim hose Echo ordered Monitor vital signs, I&Os, BUN/creatinine, daily weights, neuro status and patient is a fall risk Monitor serum electrolytes, Keep serum Potassium>4 and serum Magnesium>2 and CBC (3) Pneumonia: Qualifiers: Pneumonia type: due to influenza A virus Qualified Code(s): J10.00 - Influenza due to other identified influenza virus with unspecified type of pneumonia Code(s): J18.9 - Pneumonia, unspecified organism Status: Acute Assessment and Plan: - Did not meet SIRS criteria, WBC only. - CXR: Airspace opacities at the lung bases, consistent with atelectasis versus pneumonia. - risk factors and complicating factors: Flu - started on CAP tx: ceftriaxone and azithromycin on 04/19, transitioned to levaquin on 04/23 - MRSA PCR negative - Sputum culture: preliminary - lower resp tract - Viral PCR: +influenza - Blood cultures obtained on 04/18: NGTD - no supplemental O2 requirement at this time - IS and pep therapy - Monitor vital signs, I&Os, neuro status and patient is a fall risk - Follow WBC, serum electrolytes, temperature curves and cultures 04/21: Continues to endorse SOB with productive cough. Lung sounds remain coarse but improved from yesterday. Vitals stable. Remains on room air. 04/22: Shortness of breath has improved. Continues to endorse a cough and increased congestion. Lungs sounds have improved but remain coarse in the bases. Vitals stable on room air. 04/23: Shortness of breath continues to improve however lung sounds are more coarse on auscultation and patient had a rise in her WBC on am labs. Spoke with ID pharmacy and will transition patient to levaquin. Repeat Chest XR: Mild pulmonary vascular congestion with bibasilar infiltrates, as detailed above. 04/24: WBC improved. Continues to have shortness of breath however lungs sounds improving on exam. 04/25- stable wbc 9.3 (4) Influenza: Code(s): J11.1 - Influenza due to unidentified influenza virus with other respiratory manifestations Status: Acute Assessment and Plan: - tested positive for influenza A on 04/19 - CXR concerning for bibasilar pneumonia - patient out of the window for Tamiflu, discontinued - supportive care: Tylenol p.r.n. Mucinex ashutosh DuoNeb p.r.n. Tessalon Perles p.r.n. Lozenge p.r.n. - monitor WBC/CBC - currently not requiring increased supplemental O2 (5) Acute kidney injury: Code(s): N17.9 - Acute kidney failure, unspecified Status: Acute Assessment and Plan: - creatinine 3.45 and GFR 13, previously 1.0 and GFR 54 on 01/14/2024. Patient had nausea (very poor PO intake over the last 5+ days) and diarrhea for the last few days (primarily on Tuesday), suspect injury secondary to hypovolemia. - BUN/Cr 9/0.68 on am labs - CT abd/pelvis: 1. Bibasilar lung disease most suspicious for pneumonia. No acute intra- abdominal/pelvic process. 2. Unchanged large right staghorn calculus without hydronephrosis. 3. Chronic left recto cutaneous fistula. - IV fluids discontinued as patient is drinking water - trend renal function - avoid nephrotoxic medications - renally dose medications - monitor I/O Resolved. (6) Type 2 diabetes mellitus without complications: Qualifiers: Diabetes mellitus skilled nursing insulin use: without acquisitions assistant use Qualified Code(s): E11.9 - Type 2 diabetes mellitus without complications Code(s): E11.9 - Type 2 diabetes mellitus without complications Status: Chronic Assessment and Plan: - hypoglycemia protocol - POC blood glucose ACHS - home medication: hold Januvia - correct regimen ordered - high dose TIDWM, based off BMI - A1C 5.4% on 01/14/2024 (7) Hypertension: Qualifiers: Hypertension type: essential hypertension Qualified Code(s): I10 - Essential (primary) hypertension Code(s): I10 - Essential (primary) hypertension Status: Chronic Assessment and Plan: - chronic - metoprolol 25 mg BID, dose increased to 50 mg BID / afib RVR - Resumed Lisinopril as ANN resolved - Blood pressures remain stable, continue to monitor Plan Diet: Heart healthy GI Prophylaxis: Not currently indicated DVT Prophylaxis: Xarelto Lines: Peripheral Code Status: Full code Time Spent With Patient Time with patient: 25 - 35 minutes Subjective Date/time seen: 04/25/24 13:22 Interval history: 73 y/o F presents here with nausea, diarrhea, and cough with PMH of paroxysmal atrial flutter, chronic anticoagulation, diabetes, iron deficiency anemia, hydradenitis, hypertension, and hyperlipidemia. Patient HR in the 150-160s this morning, reported to patients room at that time. Patient remained asymptomatic denying chest pain and palpitations. Morning dose of metoprolol 25 mg PO given and 5 mg IV metoprolol. HR returned to normal rate. Metoprolol dose increased to 50 mg BID, starting tonight. Patient notes increased lower extremity edema and increased shortness of breath with lying flat. Possible fluid overload as she was receiving IV antibiotics for the pneumonia which has been transitioned to orals. Lasix 40 IV given x1. Will obtain an echo to evaluate heart function. Patient has no other complaints. Continued to monitor patients tele and she remained in atrial fibrillation with HR mainly in the 90-100s. She remains asymptomatic denying chest pain and palpitations. PT is seen and examined. pt is comfortable, denies any chest pain. Leg swelling is better. Review of Systems Review of Systems: All systems reviewed & are unremarkable except as noted in HPI and below Exam Narrative: AF HR 92 RR 18 SPO2 99 BP 123/67 General: female in no acute respiratory distress who is nontoxic appearing, sitting up in chair HEENT: Normocephalic. Atraumatic. Extraocular movement intact. Sclera clear and anicteric. No facial asymmetry. Chest: Lungs are diminished to auscultation bilaterally in the bases with slight coarseness. CV: Heart was regular rate with irregular irregular rhythm. Abd: Abdomen was soft. Nontender. Nondistended. Positive bowel sounds. Ext: No clubbing, cyanosis, or edema. 2+ DP pulses bilaterally. Neuro: Patient is alert and oriented x4. Speech is clear. Const: General: comfortable and no acute distress Other: , female, modestly ill-appearing. Recumbent in ED stretcher. HENMT: Face/Nose/Sinus: Normal nares present Mouth: Yes dry mucous membranes Eyes: General: appearance normal, both eyes and all related structures Sclera: sclerae normal Pupils: Equal, round and reactive pupils present EOM: EOMs intact bilaterally Resp: Other: coarse lung sounds in mid and lower lungs bilaterally. bibasilar crackles. +expiratory wheeze. -tachypnea/increased WOB. Cardio: Rate: regular rate Rhythm: regular rhythm Other: S1-S2 present without murmur, rub, ectopy Skin: General skin exam: normal color and no rashes or lesions noted Wounds: no wounds Neuro: Cranial nerves: Yes Equal, round and reactive pupils present Speech: normal speech Motor exam (neuro): 5/5 motor strength present throughout Sensory Exam: normal sensation Other: A&O x4 Extrem: General: normal to inspection Psych: Mental Status: mental status grossly normal Affect: normal affect Other: Good insight and judgment, pleasant Objective Data Vital Signs Vital Signs: Vital Signs - 24 hr 04/24/24 14:00 04/24/24 16:00 04/24/24 20:00 Temperature 96.3 F L Pulse Rate 62 108 H 97 Respiratory Rate 18 Blood Pressure 123/67 Pulse Oximetry 99 Oxygen Delivery 04/24/24 20:15 04/24/24 21:15 04/25/24 00:00 Temperature 96.9 F L Pulse Rate 124 H 62 141 H Respiratory Rate 20 Blood Pressure 137/81 Pulse Oximetry 95 Oxygen Delivery 04/25/24 00:22 04/25/24 04:00 04/25/24 04:20 Temperature 97.7 F Pulse Rate 135 H 104 H 97 Respiratory Rate 18 Blood Pressure 133/65 Pulse Oximetry 98 Oxygen Delivery 04/25/24 08:00 04/25/24 08:07 04/25/24 08:07 Temperature Pulse Rate 106 H 94 Respiratory Rate Blood Pressure 121/56 L Pulse Oximetry 98 Oxygen Delivery Room Air 04/25/24 08:08 Temperature Pulse Rate 94 Respiratory Rate Blood Pressure Pulse Oximetry Oxygen Delivery Intake/Output Intake/Output: Intake & Output 04/22/24 04/23/24 04/24/24 04/25/24 23:59 23:59 23:59 23:59 Intake Total 2430 1100 1467 700 Output Total 325 100 Balance 2430 1100 1142 600 Meds/Results Medications: Active Medications Generic Name Dose Route Start Last Admin Trade Name Freq PRN Reason Stop Dose Admin Acetaminophen 650 mg 04/19/24 13:21 Acetaminophen 325 Mg Tablet PO Q4H PRN Mild Pain (1-3) or Fever Albuterol/Ipratropium 3 ml 04/19/24 14:04 Ipratropium 0.5 Mg/Albuterol Sulfate 2.5 Mg Ampul.Neb 3 Ml INHALATION Q6HRT PRN Shortness Of Breath Or Wheezing Ascorbic Acid 1,000 mg 04/20/24 09:00 04/25/24 08:07 Ascorbic Acid 500 Mg Tablet PO 1,000 mg DAILY ASHUTOSH Administration Atorvastatin Calcium 10 mg 04/20/24 09:00 04/25/24 08:09 Atorvastatin 10 Mg Tablet PO 10 mg DAILY ASHUTOSH Administration Benzocaine 1 lozenge 04/19/24 14:04 Benzocaine/Menthol (*Bkc) 18 Ea Lozenge PO PRN PRN Sore Throat Benzonatate 100 mg 04/19/24 14:04 04/24/24 15:39 Benzonatate 100 Mg Capsule PO 100 mg TID PRN Administration cough Dextrose 12.5 gm 04/19/24 14:04 Dextrose 50% 25 Gm/50 Ml Syringe IV PUSH PRN PRN Hypoglycemia Protocol Ferrous Sulfate 325 mg 04/20/24 09:00 04/24/24 07:47 Ferrous Sulfate [address] BY MOUTH 325 mg Q48H ASHUTOSH Administration Glucagon 1 mg 04/19/24 14:04 Glucagon For Inj 1 Mg Vial IM PRN PRN Hypoglycemia Protocol Glucose 15 gm 04/19/24 14:04 Glucose Oral Gel 15 Gm Of Glucse In 37.5 Gm Tube PO PRN PRN Hypoglycemia Protocol Guaifenesin 600 mg 04/19/24 14:15 04/25/24 08:08 Guaifenesin 12 Hr 600 Mg Tabcr PO 600 mg Q12HR ASHUTOSH Administration Dextrose 1,000 mls @ 100 mls/hr 04/19/24 14:04 Dextrose 5% 1,000 Ml IVPB PRN PRN Hypoglycemia Protocol Insulin Aspart 4 - 8 units 04/19/24 17:00 04/25/24 12:21 Insulin Aspart (*Bkc) 100 Units/Ml SUB-Q Not Given TIDWM ASHUTOSH Protocol Levofloxacin 750 mg 04/23/24 15:00 04/24/24 15:31 Levofloxacin 750 Mg Tablet PO 750 mg DAILY@1500 ASHUTOSH Administration Lisinopril 20 mg 04/21/24 09:00 04/25/24 08:09 Lisinopril 20 Mg Tablet PO 20 mg DAILY ASHUTOSH Administration Metoprolol Succinate 50 mg 04/24/24 20:00 04/25/24 08:08 Metoprolol Succinate Ext Rel 50 Mg Tabcr PO 50 mg Q12HR ASHUTOSH Administration Metoprolol Tartrate 5 mg 04/25/24 00:06 04/25/24 00:22 Metoprolol Tartrate Inj 5 Mg/5 Ml Vial IV PUSH 5 mg Q5MIN PRN Administration Heart Rate- High Ondansetron HCl 4 mg 04/19/24 13:21 Ondansetron Inj 4 Mg/2 Ml Vial IV PUSH Q4H PRN Nausea Perflutren Lipid Microsphere 0 ml 04/24/24 08:15 Perflutren Lipid Microspheres 1.5 Ml Vial Diluted To 10 Ml Total Volume IV PUSH 04/27/24 08:16 ONCE PRN adequate visualization Protocol Rivaroxaban 20 mg 04/20/24 18:00 04/24/24 17:22 Rivaroxaban 20 Mg Tablet PO 20 mg QPM ASHUTOSH Administration Radiology Results: ITS Impressions Abdomen/Pelvis CT 04/19/24 09:32 IMPRESSION: 1. Bibasilar lung disease most suspicious for pneumonia. No acute intra- abdominal/pelvic process. 2. Unchanged large right staghorn calculus without hydronephrosis. 3. Chronic left recto cutaneous fistula. Chest X-Ray 04/24/24 23:54 IMPRESSION: Pulmonary vascular congestion redemonstrated, now with possible early infiltrate in the right mid to lower lung field. Labs Labs: Laboratory Results - last 24 hr 04/24/24 04/24/24 04/25/24 16:39 20:46 06:34 WBC 9.3 RBC 4.08 L Hgb 10.7 L Hct 33.3 L MCV 81.6 MCH 26.2 MCHC 32.1 RDW 17.4 H Plt Count 311 MPV 9.1 Sodium 139 Potassium 4.2 Chloride 102 Carbon Dioxide 29 Anion Gap 8 BUN 14 D Creatinine 0.87 Estim Creat Clear Calc 56 Estimated GFR > 60 Glucose 97 POC Capillary Glucose 115 H 124 H Calcium 6.2 L Total Bilirubin 0.8 AST 19 ALT 16 Alkaline Phosphatase 55 Total Protein 7.0 Albumin 3.0 L 04/25/24 04/25/24 07:58 11:22 WBC RBC Hgb Hct MCV MCH MCHC RDW Plt Count MPV Sodium Potassium Chloride Carbon Dioxide Anion Gap BUN Creatinine Estim Creat Clear Calc Estimated GFR Glucose POC Capillary Glucose 95 115 H Calcium Total Bilirubin AST ALT Alkaline Phosphatase Total Protein Albumin Quality VTE Prophylaxis VTE prophylaxis: pharmacologic ordered
[2024-04-25] MEDS: levoFLOXacin 750 MG TABLET PO (14:39)
[2024-04-25 16:54] LABS: Glucose Point of Care 154 mg/dl (65-105)
[2024-04-25] MEDS: RIVAROXABAN 20 MG TABLET PO (17:11)
[2024-04-25] MEDS: FUROSEMIDE INJ 40 MG/4 ML VIAL IV PUSH (18:03)
[2024-04-25] MEDS: METOPROLOL SUCCINATE EXT REL 25 MG TABCR 75 MG PO (21:03)
[2024-04-25 21:07] LABS: Glucose Point of Care 174 mg/dl (65-105)
[2024-04-26] VITALS: PULSE 103
[2024-04-26 05:11] VITALS: BP 118/67; PULSE 85; RESP 16; TEMP 36.1; O2SAT 96
[2024-04-26 07:44] LABS: Glucose Point of Care 88 mg/dl (65-105)
[2024-04-26 08:00] VITALS: PULSE 87
[2024-04-26] MEDS: FERROUS SULFATE 325 MG TABLET DR BY MOUTH (09:39)
[2024-04-26] MEDS: lisinopriL 20 MG TABLET PO (09:39)
[2024-04-26] MEDS: guaiFENesin 12 HR 600 MG TABCR PO (09:39)
[2024-04-26] MEDS: ASCORBIC ACID 500 MG TABLET 1000 MG PO (09:39)
[2024-04-26] MEDS: ATORVASTATIN 10 MG TABLET PO (09:39)
[2024-04-26 09:44] VITALS: PULSE 85
[2024-04-26] MEDS: METOPROLOL SUCCINATE EXT REL 100 MG TABCR PO (09:44)
--- NOTE | 2024-04-26 10:46 | PM.PNCARD ---
Progress Note: A&P Assessment and Plan (1) Hypertension: Qualifiers: Hypertension type: essential hypertension Qualified Code(s): I10 - Essential (primary) hypertension Code(s): I10 - Essential (primary) hypertension Status: Chronic (2) Atrial fibrillation: Code(s): I48.91 - Unspecified atrial fibrillation Status: Acute Plan 73-year-old woman with paroxysmal atrial fibrillation/flutter, diabetes, hypertension, and hyperlipidemia presented with cough found to have influenza pneumonia and atrial fibrillation with rapid ventricular rates Paroxysmal atrial fibrillation -rapid ventricular rates her most likely driven by acute viral illness -increase metoprolol succinate to 100 mg p.o. b.i.d. -she was instructed to adjust the frequency to 100 mg p.o. daily next week on 05/01 at which point the acute viral illness most likely has ran its course -continue Xarelto Hypertension -on lisinopril Hyperlipidemia -on atorvastatin Patient can be discharged from cardiac standpoint to follow up with Dr. Gray Subjective Date/time seen: 04/26/24 10:46 Interval history: She feels well today. Denies any palpitations, shortness of breath, and chest discomfort. No syncopal events. Review of Systems Cardiovascular: Cardiovascular: Reports as per HPI Respiratory: Respiratory: Reports as per HPI Exam Const: General: comfortable HENMT: Mouth: Yes dry mucous membranes Eyes: EOM: EOMs intact bilaterally Neck: Neck: no JVD Resp: Effort & Inspection: normal respiratory effort Auscultation: clear to auscultation bilaterally Cardio: Rate: regular rate Rhythm: abnormal rhythm Objective Data Vital Signs Vital Signs: Vital Signs - 24 hr 04/25/24 12:00 04/25/24 14:00 04/25/24 14:39 Temperature 35.9 C L Pulse Rate 98 106 H 143 H Respiratory Rate 18 Blood Pressure 112/62 Pulse Oximetry 97 Oxygen Delivery 04/25/24 16:00 04/25/24 16:47 04/25/24 20:00 Temperature Pulse Rate 127 H 140 H 113 H Respiratory Rate Blood Pressure Pulse Oximetry Oxygen Delivery 04/25/24 21:03 04/25/24 21:09 04/26/24 00:00 Temperature 36.6 C Pulse Rate 106 H 103 H 103 H Respiratory Rate 16 Blood Pressure 117/78 Pulse Oximetry 97 Oxygen Delivery 04/26/24 05:11 04/26/24 08:00 04/26/24 09:44 Temperature 36.1 C L Pulse Rate 85 85 Respiratory Rate 16 Blood Pressure 118/67 Pulse Oximetry 96 Oxygen Delivery Room Air Intake/Output Intake/Output: Intake & Output 04/23/24 04/24/24 04/25/24 04/26/24 23:59 23:59 23:59 23:59 Intake Total 1100 1467 1397 760 Output Total 325 100 Balance 1100 1142 1297 760 Meds/Results Medications: Active Medications Generic Name Dose Route Start Last Admin Trade Name Freq PRN Reason Stop Dose Admin Acetaminophen 650 mg 04/19/24 13:21 Acetaminophen 325 Mg Tablet PO Q4H PRN Mild Pain (1-3) or Fever Albuterol/Ipratropium 3 ml 04/19/24 14:04 Ipratropium 0.5 Mg/Albuterol Sulfate 2.5 Mg Ampul.Neb 3 Ml INHALATION Q6HRT PRN Shortness Of Breath Or Wheezing Ascorbic Acid 1,000 mg 04/20/24 09:00 04/26/24 09:39 Ascorbic Acid 500 Mg Tablet PO 1,000 mg DAILY MARTÍN Administration Atorvastatin Calcium 10 mg 04/20/24 09:00 04/26/24 09:39 Atorvastatin 10 Mg Tablet PO 10 mg DAILY MARTÍN Administration Benzocaine 1 lozenge 04/19/24 14:04 Benzocaine/Menthol (*Bkc) 18 Ea Lozenge PO PRN PRN Sore Throat Benzonatate 100 mg 04/19/24 14:04 04/24/24 15:39 Benzonatate 100 Mg Capsule PO 100 mg TID PRN Administration cough Dextrose 12.5 gm 04/19/24 14:04 Dextrose 50% 25 Gm/50 Ml Syringe IV PUSH PRN PRN Hypoglycemia Protocol Ferrous Sulfate 325 mg 04/20/24 09:00 04/26/24 09:39 Ferrous Sulfate [address] BY MOUTH 325 mg Q48H MARTÍN Administration Glucagon 1 mg 04/19/24 14:04 Glucagon For Inj 1 Mg Vial IM PRN PRN Hypoglycemia Protocol Glucose 15 gm 04/19/24 14:04 Glucose Oral Gel 15 Gm Of Glucse In 37.5 Gm Tube PO PRN PRN Hypoglycemia Protocol Guaifenesin 600 mg 04/19/24 14:15 04/26/24 09:39 Guaifenesin 12 Hr 600 Mg Tabcr PO 600 mg Q12HR MARTÍN Administration Dextrose 1,000 mls @ 100 mls/hr 04/19/24 14:04 Dextrose 5% 1,000 Ml IVPB PRN PRN Hypoglycemia Protocol Insulin Aspart 4 - 8 units 04/19/24 17:00 04/26/24 08:39 Insulin Aspart (*Bkc) 100 Units/Ml SUB-Q Not Given TIDWM [facility] Protocol Levofloxacin 750 mg 04/23/24 15:00 04/25/24 14:39 Levofloxacin 750 Mg Tablet PO 750 mg DAILY@1500 MARTÍN Administration Lisinopril 20 mg 04/21/24 09:00 04/26/24 09:39 Lisinopril 20 Mg Tablet PO 20 mg DAILY MARTÍN Administration Metoprolol Succinate 100 mg 04/26/24 09:00 04/26/24 09:44 Metoprolol Succinate Ext Rel 100 Mg Tabcr PO 100 mg Q12HR MARTÍN Administration Metoprolol Tartrate 5 mg 04/25/24 00:06 04/25/24 16:47 Metoprolol Tartrate Inj 5 Mg/5 Ml Vial IV PUSH 5 mg Q5MIN PRN Administration Heart Rate- High Ondansetron HCl 4 mg 04/19/24 13:21 Ondansetron Inj 4 Mg/2 Ml Vial IV PUSH Q4H PRN Nausea Perflutren Lipid Microsphere 0 ml 04/24/24 08:15 Perflutren Lipid Microspheres 1.5 Ml Vial Diluted To 10 Ml Total Volume IV PUSH 04/27/24 08:16 ONCE PRN adequate visualization Protocol Rivaroxaban 20 mg 04/20/24 18:00 04/25/24 17:11 Rivaroxaban 20 Mg Tablet PO 20 mg QPM MARTÍN Administration Radiology Results: ITS Impressions Abdomen/Pelvis CT 04/19/24 09:32 IMPRESSION: 1. Bibasilar lung disease most suspicious for pneumonia. No acute intra-abdominal/pelvic process. 2. Unchanged large right staghorn calculus without hydronephrosis. 3. Chronic left recto cutaneous fistula. Chest X-Ray 04/24/24 23:54 IMPRESSION: Pulmonary vascular congestion redemonstrated, now with possible early infiltrate in the right mid to lower lung field. Labs Labs: Laboratory Results - last 24 hr 04/25/24 04/25/24 04/25/24 11:22 16:52 19:33 POC Capillary Glucose 115 H 154 H 174 H 04/26/24 07:33 POC Capillary Glucose 88
[2024-04-26 11:58] LABS: Glucose Point of Care 120 mg/dl (65-105)
[2024-04-26 12:00] VITALS: PULSE 79
[2024-04-26 14:00] VITALS: BP 106/60; PULSE 95; RESP 17; TEMP 35.8; O2SAT 96
--- NOTE | 2024-04-26 14:49 | PM.IMPN ---
Progress Note: A&P Assessment and Plan (1) Atrial fibrillation: Code(s): I48.91 - Unspecified atrial fibrillation Status: Acute Assessment and Plan: Chronic, continue home medications - metoprolol 25 mg BID - Xarelto 20 mg daily - monitor 04/23: Patient HR in the 150s overnight requiring 5 mg IV metoprolol x1. She remains on her home metoprolol 25 mg BID and HR remain stable at this time. Patient denies chest pain and palpitations. 04/24: Patient HR in the 150-160s this morning. Patient remained asymptomatic denying chest pain and palpitations. Morning dose of metoprolol 25 mg PO given and 5 mg IV metoprolol. HR returned to normal rate. Metoprolol dose increased to 50 mg BID, starting tonight. Patient follows engineering designer, Dr. Gray. 04/25- cardiology following: Atrial fibrillation likely triggered by influenza pneumonia. Should improve as her viral illness improves. Agree with increased dose of Metoprolol, can increase as needed for additional rate control (maximum 200mg daily). -Echocardiogram ordered and pending, will follow up on results. -Continue Xarelto for anticoagulation (2) Lower extremity edema: Code(s): R60.0 - Localized edema Status: Acute Assessment and Plan: Patient has developed pitting edema to the lower extremity with mild orthopnea Chest XR 04/23: Mild pulmonary vascular congestion with bibasilar infiltrates, as detailed above. Given 40 IV lasix x1 Jim hose Echo ordered Monitor vital signs, I&Os, BUN/creatinine, daily weights, neuro status and patient is a fall risk Monitor serum electrolytes, Keep serum Potassium>4 and serum Magnesium>2 and CBC (3) Pneumonia: Qualifiers: Pneumonia type: due to influenza A virus Qualified Code(s): J10.00 - Influenza due to other identified influenza virus with unspecified type of pneumonia Code(s): J18.9 - Pneumonia, unspecified organism Status: Acute Assessment and Plan: - Did not meet SIRS criteria, WBC only. - CXR: Airspace opacities at the lung bases, consistent with atelectasis versus pneumonia. - risk factors and complicating factors: Flu - started on CAP tx: ceftriaxone and azithromycin on 04/19, transitioned to levaquin on 04/23 - MRSA PCR negative - Sputum culture: preliminary - lower resp tract - Viral PCR: +influenza - Blood cultures obtained on 04/18: NGTD - no supplemental O2 requirement at this time - IS and pep therapy - Monitor vital signs, I&Os, neuro status and patient is a fall risk - Follow WBC, serum electrolytes, temperature curves and cultures 04/21: Continues to endorse SOB with productive cough. Lung sounds remain coarse but improved from yesterday. Vitals stable. Remains on room air. 04/22: Shortness of breath has improved. Continues to endorse a cough and increased congestion. Lungs sounds have improved but remain coarse in the bases. Vitals stable on room air. 04/23: Shortness of breath continues to improve however lung sounds are more coarse on auscultation and patient had a rise in her WBC on am labs. Spoke with [facility] pharmacy and will transition patient to levaquin. Repeat Chest XR: Mild pulmonary vascular congestion with bibasilar infiltrates, as detailed above. 04/24: WBC improved. Continues to have shortness of breath however lungs sounds improving on exam. 04/25- stable wbc 9.3 (4) Influenza: Code(s): J11.1 - Influenza due to unidentified influenza virus with other respiratory manifestations Status: Acute Assessment and Plan: - tested positive for influenza A on 04/19 - CXR concerning for bibasilar pneumonia - patient out of the window for Tamiflu, discontinued - supportive care: Tylenol p.r.n. Mucinex ashutosh DuoNeb p.r.n. Tessalon Perles p.r.n. Lozenge p.r.n. - monitor WBC/CBC - currently not requiring increased supplemental O2 (5) Acute kidney injury: Code(s): N17.9 - Acute kidney failure, unspecified Status: Acute Assessment and Plan: - creatinine 3.45 and GFR 13, previously 1.0 and GFR 54 on 01/14/2024. Patient had nausea (very poor PO intake over the last 5+ days) and diarrhea for the last few days (primarily on Tuesday), suspect injury secondary to hypovolemia. - BUN/Cr 9/0.68 on am labs - CT abd/pelvis: 1. Bibasilar lung disease most suspicious for pneumonia. No acute intra-abdominal/pelvic process. 2. Unchanged large right staghorn calculus without hydronephrosis. 3. Chronic left recto cutaneous fistula. - IV fluids discontinued as patient is drinking water - trend renal function - avoid nephrotoxic medications - renally dose medications - monitor I/O Resolved. 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 Qualified Code(s): E11.9 - Type 2 diabetes mellitus without complications Code(s): E11.9 - Type 2 diabetes mellitus without complications Status: Chronic Assessment and Plan: - hypoglycemia protocol - POC blood glucose ACHS - home medication: hold Januvia - correct regimen ordered - high dose TIDWM, based off BMI - A1C 5.4% on 01/14/2024 (7) Hypertension: Qualifiers: Hypertension type: essential hypertension Qualified Code(s): I10 - Essential (primary) hypertension Code(s): I10 - Essential (primary) hypertension Status: Chronic Assessment and Plan: - chronic - metoprolol 25 mg BID, dose increased to 50 mg BID / afib RVR - Resumed Lisinopril as ANN resolved - Blood pressures remain stable, continue to monitor Plan Diet: Heart healthy GI Prophylaxis: Not currently indicated DVT Prophylaxis: Xarelto Lines: Peripheral Code Status: Full code Subjective Date/time seen: 04/26/24 14:49 Interval history: She feels well today. Denies any palpitations, shortness of breath, and chest discomfort. No syncopal events. cardiology on board. leg swelling improving. working with care coordination for placement. Review of Systems Review of Systems: All systems reviewed & are unremarkable except as noted in HPI and below Exam Narrative: AF HR 92 RR 18 SPO2 99 BP 123/67 General: female in no acute respiratory distress who is nontoxic appearing, sitting up in chair HEENT: Normocephalic. Atraumatic. Extraocular movement intact. Sclera clear and anicteric. No facial asymmetry. Chest: Lungs are diminished to auscultation bilaterally in the bases with slight coarseness. CV: Heart was regular rate with irregular irregular rhythm. Abd: Abdomen was soft. Nontender. Nondistended. Positive bowel sounds. Ext: No clubbing, cyanosis, or edema. 2+ DP pulses bilaterally. Neuro: Patient is alert and oriented x4. Speech is clear. Const: General: comfortable and no acute distress Other: , female, modestly ill-appearing. Recumbent in ED stretcher. HENMT: Face/Nose/Sinus: Normal nares present Mouth: Yes dry mucous membranes Eyes: General: appearance normal, both eyes and all related structures Sclera: sclerae normal Pupils: Equal, round and reactive pupils present EOM: EOMs intact bilaterally Resp: Other: coarse lung sounds in mid and lower lungs bilaterally. bibasilar crackles. +expiratory wheeze. -tachypnea/increased WOB. Cardio: Rate: regular rate Rhythm: regular rhythm Other: S1-S2 present without murmur, rub, ectopy Skin: General skin exam: normal color and no rashes or lesions noted Wounds: no wounds Neuro: Cranial nerves: Yes Equal, round and reactive pupils present Speech: normal speech Motor exam (neuro): 5/5 motor strength present throughout Sensory Exam: normal sensation Other: A&O x4 Extrem: General: normal to inspection Psych: Mental Status: mental status grossly normal Affect: normal affect Other: Good insight and judgment, pleasant Objective Data Vital Signs Vital Signs: Vital Signs - 24 hr 04/25/24 16:00 04/25/24 16:47 04/25/24 20:00 Temperature Pulse Rate 127 H 140 H 113 H Respiratory Rate Blood Pressure Pulse Oximetry Oxygen Delivery 04/25/24 21:03 04/25/24 21:09 04/26/24 00:00 Temperature 97.9 F Pulse Rate 106 H 103 H 103 H Respiratory Rate 16 Blood Pressure 117/78 Pulse Oximetry 97 Oxygen Delivery 04/26/24 05:11 04/26/24 08:00 04/26/24 08:00 Temperature 97.0 F L Pulse Rate 85 87 Respiratory Rate 16 Blood Pressure 118/67 Pulse Oximetry 96 Oxygen Delivery Room Air 04/26/24 09:44 04/26/24 12:00 Temperature Pulse Rate 85 79 Respiratory Rate Blood Pressure Pulse Oximetry Oxygen Delivery Intake/Output Intake/Output: Intake & Output 04/23/24 04/24/24 04/25/24 04/26/24 23:59 23:59 23:59 23:59 Intake Total 1100 1467 1397 960 Output Total 325 100 Balance 1100 1142 1297 960 Meds/Results Medications: Active Medications Generic Name Dose Route Start Last Admin Trade Name Freq PRN Reason Stop Dose Admin Acetaminophen 650 mg 04/19/24 13:21 Acetaminophen 325 Mg Tablet PO Q4H PRN Mild Pain (1-3) or Fever Albuterol/Ipratropium 3 ml 04/19/24 14:04 Ipratropium 0.5 Mg/Albuterol Sulfate 2.5 Mg Ampul.Neb 3 Ml INHALATION Q6HRT PRN Shortness Of Breath Or Wheezing Ascorbic Acid 1,000 mg 04/20/24 09:00 04/26/24 09:39 Ascorbic Acid 500 Mg Tablet PO 1,000 mg DAILY ASHUTOSH Administration Atorvastatin Calcium 10 mg 04/20/24 09:00 04/26/24 09:39 Atorvastatin 10 Mg Tablet PO 10 mg DAILY ASHUTOSH Administration Benzocaine 1 lozenge 04/19/24 14:04 Benzocaine/Menthol (*Bkc) 18 Ea Lozenge PO PRN PRN Sore Throat Benzonatate 100 mg 04/19/24 14:04 04/24/24 15:39 Benzonatate 100 Mg Capsule PO 100 mg TID PRN Administration cough Dextrose 12.5 gm 04/19/24 14:04 Dextrose 50% 25 Gm/50 Ml Syringe IV PUSH PRN PRN Hypoglycemia Protocol Ferrous Sulfate 325 mg 04/20/24 09:00 04/26/24 09:39 Ferrous Sulfate [address] BY MOUTH 325 mg Q48H ASHUTOSH Administration Glucagon 1 mg 04/19/24 14:04 Glucagon For Inj 1 Mg Vial IM PRN PRN Hypoglycemia Protocol Glucose 15 gm 04/19/24 14:04 Glucose Oral Gel 15 Gm Of Glucse In 37.5 Gm Tube PO PRN PRN Hypoglycemia Protocol Guaifenesin 600 mg 04/19/24 14:15 04/26/24 09:39 Guaifenesin 12 Hr 600 Mg Tabcr PO 600 mg Q12HR ASHUTOSH Administration Dextrose 1,000 mls @ 100 mls/hr 04/19/24 14:04 Dextrose 5% 1,000 Ml IVPB PRN PRN Hypoglycemia Protocol Insulin Aspart 4 - 8 units 04/19/24 17:00 04/26/24 12:19 Insulin Aspart (*Bkc) 100 Units/Ml SUB-Q Not Given TIDWM [facility] Protocol Levofloxacin 750 mg 04/23/24 15:00 04/25/24 14:39 Levofloxacin 750 Mg Tablet PO 750 mg DAILY@1500 ASHUTOSH Administration Lisinopril 20 mg 04/21/24 09:00 04/26/24 09:39 Lisinopril 20 Mg Tablet PO 20 mg DAILY ASHUTOSH Administration Metoprolol Succinate 100 mg 04/26/24 09:00 04/26/24 09:44 Metoprolol Succinate Ext Rel 100 Mg Tabcr PO 100 mg Q12HR ASHUTOSH Administration Metoprolol Tartrate 5 mg 04/25/24 00:06 04/25/24 16:47 Metoprolol Tartrate Inj 5 Mg/5 Ml Vial IV PUSH 5 mg Q5MIN PRN Administration Heart Rate- High Ondansetron HCl 4 mg 04/19/24 13:21 Ondansetron Inj 4 Mg/2 Ml Vial IV PUSH Q4H PRN Nausea Perflutren Lipid Microsphere 0 ml 04/24/24 08:15 Perflutren Lipid Microspheres 1.5 Ml Vial Diluted To 10 Ml Total Volume IV PUSH 04/27/24 08:16 ONCE PRN adequate visualization Protocol Rivaroxaban 20 mg 04/20/24 18:00 04/25/24 17:11 Rivaroxaban 20 Mg Tablet PO 20 mg QPM ASHUTOSH Administration Radiology Results: ITS Impressions Abdomen/Pelvis CT 04/19/24 09:32 IMPRESSION: 1. Bibasilar lung disease most suspicious for pneumonia. No acute intra-abdominal/pelvic process. 2. Unchanged large right staghorn calculus without hydronephrosis. 3. Chronic left recto cutaneous fistula. Chest X-Ray 04/24/24 23:54 IMPRESSION: Pulmonary vascular congestion redemonstrated, now with possible early infiltrate in the right mid to lower lung field. Labs Labs: Laboratory Results - last 24 hr 04/25/24 04/25/24 04/26/24 16:52 19:33 07:33 POC Capillary Glucose 154 H 174 H 88 04/26/24 11:45 POC Capillary Glucose 120 H Quality VTE Prophylaxis VTE prophylaxis: pharmacologic ordered
--- NOTE | 2024-04-26 14:58 | P.DS_ITS ---
DS: Admitting Diagnosis Discharge Date 04/26 Admitting Diagnosis nausea, diarrhea, cough DS: Discharge Diagnosis Discharge Diagnosis (1) Atrial fibrillation: Code(s): I48.91 - Unspecified atrial fibrillation Status: Acute Assessment and Plan: Chronic, continue home medications - metoprolol 25 mg BID - Xarelto 20 mg daily - monitor 04/23: Patient HR in the 150s overnight requiring 5 mg IV metoprolol x1. She remains on her home metoprolol 25 mg BID and HR remain stable at this time. Patient denies chest pain and palpitations. 04/24: Patient HR in the 150-160s this morning. Patient remained asymptomatic denying chest pain and palpitations. Morning dose of metoprolol 25 mg PO given and 5 mg IV metoprolol. HR returned to normal rate. Metoprolol dose increased to 50 mg BID, starting tonight. 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 Gray. 04/25- cardiology following: Atrial fibrillation likely triggered by influenza pneumonia. Should improve as her viral illness improves. Agree with increased dose of Metoprolol, can increase as needed for additional rate control (maximum 200mg daily). -Echocardiogram ordered and pending, will follow up on results. -Continue Xarelto for anticoagulation (2) Lower extremity edema: Code(s): R60.0 - Localized edema Status: Acute Assessment and Plan: Patient has developed pitting edema to the lower extremity with mild orthopnea Chest XR 04/23: Mild pulmonary vascular congestion with bibasilar infiltrates, as detailed above. Given 40 IV lasix x1 Jim hose Echo ordered Monitor vital signs, I&Os, BUN/creatinine, daily weights, neuro status and patient is a fall risk Monitor serum electrolytes, Keep serum Potassium>4 and serum Magnesium>2 and CBC (3) Pneumonia: Qualifiers: Pneumonia type: due to influenza A virus Qualified Code(s): J10.00 - Influenza due to other identified influenza virus with unspecified type of pneumonia Code(s): J18.9 - Pneumonia, unspecified organism Status: Acute Assessment and Plan: - Did not meet SIRS criteria, WBC only. - CXR: Airspace opacities at the lung bases, consistent with atelectasis versus pneumonia. - risk factors and complicating factors: Flu - started on CAP tx: ceftriaxone and azithromycin on 04/19, transitioned to levaquin on 04/23 - MRSA PCR negative - Sputum culture: preliminary - lower resp tract - Viral PCR: +influenza - Blood cultures obtained on 04/18: NGTD - no supplemental O2 requirement at this time - IS and pep therapy - Monitor vital signs, I&Os, neuro status and patient is a fall risk - Follow WBC, serum electrolytes, temperature curves and cultures 04/21: Continues to endorse SOB with productive cough. Lung sounds remain coarse but improved from yesterday. Vitals stable. Remains on room air. 04/22: Shortness of breath has improved. Continues to endorse a cough and increased congestion. Lungs sounds have improved but remain coarse in the bases. Vitals stable on room air. 04/23: Shortness of breath continues to improve however lung sounds are more coarse on auscultation and patient had a rise in her WBC on am labs. Spoke with ID pharmacy and will transition patient to levaquin. Repeat Chest XR: Mild pulmonary vascular congestion with bibasilar infiltrates, as detailed above. 04/24: WBC improved. Continues to have shortness of breath however lungs sounds improving on exam. 04/25- stable wbc 9.3 (4) Influenza: Code(s): J11.1 - Influenza due to unidentified influenza virus with other respiratory manifestations Status: Acute Assessment and Plan: - tested positive for influenza A on 04/19 - CXR concerning for bibasilar pneumonia - patient out of the window for Tamiflu, discontinued - supportive care: Tylenol p.r.n. Mucinex ashutosh DuoNeb p.r.n. Tessalon Perles p.r.n. Lozenge p.r.n. - monitor WBC/CBC - currently not requiring increased supplemental O2 (5) Acute kidney injury: Code(s): N17.9 - Acute kidney failure, unspecified Status: Acute Assessment and Plan: - creatinine 3.45 and GFR 13, previously 1.0 and GFR 54 on 01/14/2024. Patient had nausea (very poor PO intake over the last 5+ days) and diarrhea for the last few days (primarily on Tuesday), suspect injury secondary to hypovolemia. - BUN/Cr 9/0.68 on am labs - CT abd/pelvis: 1. Bibasilar lung disease most suspicious for pneumonia. No acute intra- abdominal/pelvic process. 2. Unchanged large right staghorn calculus without hydronephrosis. 3. Chronic left recto cutaneous fistula. - IV fluids discontinued as patient is drinking water - trend renal function - avoid nephrotoxic medications - renally dose medications - monitor I/O Resolved. (6) Type 2 diabetes mellitus without complications: Qualifiers: Diabetes mellitus senior care insulin use: without intermodal dispatcher use Qualified Code(s): E11.9 - Type 2 diabetes mellitus without complications Code(s): E11.9 - Type 2 diabetes mellitus without complications Status: Chronic Assessment and Plan: - hypoglycemia protocol - POC blood glucose ACHS - home medication: hold Januvia - correct regimen ordered - high dose TIDWM, based off BMI - A1C 5.4% on 01/14/2024 (7) Hypertension: Qualifiers: Hypertension type: essential hypertension Qualified Code(s): I10 - Essential (primary) hypertension Code(s): I10 - Essential (primary) hypertension Status: Chronic Assessment and Plan: - chronic - metoprolol 25 mg BID, dose increased to 50 mg BID 04/15 afib RVR - Resumed Lisinopril as ANN resolved - Blood pressures remain stable, continue to monitor Plan Diet: Heart healthy GI Prophylaxis: Not currently indicated DVT Prophylaxis: Xarelto Lines: Peripheral Code Status: Full code DS: Summary Hospital Course Hospital Course: 73-year-old woman with paroxysmal atrial fibrillation/flutter, diabetes, hypertension, and hyperlipidemia presented with cough found to have influenza pneumonia and atrial fibrillation with rapid ventricular rates Several issues were addressed: # Paroxysmal atrial fibrillation -rapid ventricular rates her most likely driven by acute viral illness -she was instructed prior to adjust the frequency to 100 mg p.o. daily next week on 05/01 at which point the acute viral illness most likely has ran its course -continue Xarelto - 04/26 cardiology increased metoprolol succinate to 100 mg p.o. b.i.d.- will continue it until she follows up with cardiology and instructed otherwise. Patient can be discharged from cardiac standpoint to follow up with Dr. Gray # Hypertension -on lisinopril-continue # Hyperlipidemia -on atorvastatin-continue # pneumonia Did not meet SIRS criteria, WBC only. - CXR: Airspace opacities at the lung bases, consistent with atelectasis versus pneumonia. - risk factors and complicating factors: Flu - started on CAP tx: ceftriaxone and azithromycin on 04/19, transitioned to levaquin on 04/23- two more days of therapy - MRSA PCR negative - Sputum culture: preliminary - lower resp tract - Viral PCR: +influenza - Blood cultures obtained on 04/18: NGTD - no supplemental O2 requirement - 04/26 wbc 9.3-improving # influenza tested positive for influenza A on 04/19 - CXR concerning for bibasilar pneumonia - patient out of the window for Tamiflu - supportive care: Tylenol p.r.n. Mucinex ashutosh DuoNeb p.r.n. Tessalon Perles p.r.n. Lozenge p.r.n. - monitor WBC/CBC - currently not requiring increased supplemental O2 # ANN creatinine 3.45 and GFR 13, previously 1.0 and GFR 54 on 01/14/2024. Patient had nausea (very poor PO intake over the last 5+ days) and diarrhea for the last few days (primarily on Tuesday), suspect injury secondary to hypovolemia. - BUN/Cr 9/0.68 on am labs - CT abd/pelvis: 1. Bibasilar lung disease most suspicious for pneumonia. No acute intra-abdo shaina/pelvic process. 2. Unchanged large right staghorn calculus without hydronephrosis. 3. Chronic left recto cutaneous fistula. - IV fluids discontinued as patient is drinking water - trend renal function - avoid nephrotoxic medications 04/25 cr/bun 0.87/14-improved Status at Discharge Functional status at discharge: independent ambulation Overall status at discharge: patient is progressing back to baseline Time Spent with Patient Time attestation: Total time spent providing and/or coordinating discharge services: Time spent: Greater than 30 minutes Exam Narrative: AF HR 92 RR 18 SPO2 99 BP 123/67 General: female in no acute respiratory distress who is nontoxic appearing, sitting up in chair HEENT: Normocephalic. Atraumatic. Extraocular movement intact. Sclera clear and anicteric. No facial asymmetry. Chest: Lungs are diminished to auscultation bilaterally in the bases with slight coarseness. CV: Heart was regular rate with irregular irregular rhythm. Abd: Abdomen was soft. Nontender. Nondistended. Positive bowel sounds. Ext: No clubbing, cyanosis, or edema. 2+ DP pulses bilaterally. Neuro: Patient is alert and oriented x4. Speech is clear. Const: General: comfortable and no acute distress Other: , female, modestly ill-appearing. Recumbent in ED stretcher. HENMT: Face/Nose/Sinus: Normal nares present Mouth: Yes dry mucous membranes Eyes: General: appearance normal, both eyes and all related structures Sclera: sclerae normal Pupils: Equal, round and reactive pupils present EOM: EOMs intact bilaterally Resp: Other: coarse lung sounds in mid and lower lungs bilaterally. bibasilar crackles. +expiratory wheeze. -tachypnea/increased WOB. Cardio: Rate: regular rate Rhythm: regular rhythm Other: S1-S2 present without murmur, rub, ectopy Skin: General skin exam: normal color and no rashes or lesions noted Wounds: no wounds Neuro: Cranial nerves: Yes Equal, round and reactive pupils present Speech: normal speech Motor exam (neuro): 5/5 motor strength present throughout Sensory Exam: normal sensation Other: A&O x4 Extrem: General: normal to inspection Psych: Mental Status: mental status grossly normal Affect: normal affect Other: Good insight and judgment, pleasant DS: Data Data Completed and Pending Labs on day of discharge: Labs from last 24 hours 04/26/24 04/26/24 04/25/24 11:45 07:33 19:33 POC Capillary Glucose 120 H 88 174 H 04/25/24 16:52 POC Capillary Glucose 154 H Discharge Plan Discharge Attending physician on discharge: Alvarado Rosenberg Consulting providers: Michelle Payne Discharging Clinician: Iliana Salazar Patient Disposition: [facility] Activity: as tolerated Diet: as tolerated and heart healthy Discharge Instructions: Discharge disposition: Patient admitted to the hospital for cocurrent flu and pneumonia Take medications as prescribed even if feeling better Eat well balanced meals and stay hydrated Keep active to remain strong Trend urine output Monitor blood pressures Take caution while standing, rising, or moving Change positions slowly taking a break between each position change If you standing feel dizzy sit back down and take a break Encouraged to continue with yearly vaccinations Return to the emergency department if he developed sudden shortness of breath, chest pain, nausea, vomiting, upset stomach or intractable diarrhea Return to the emergency department if you develop fever greater than 101.5 Follow-up with the primary care physician within 1-2 weeks Thank you for [facility] for your healthcare needs Patient Instructions: Antibiotic Form, Rivaroxaban (By mouth), Influenza (DC), Community Acquired Pneumonia (DC), Safe Use of Anticoagulants (GEN) Patient Language: Georgian Follow-up/Referrals: Diane Holt MD [Primary Care Provider] - 1 Week Discharge Medications: New levofloxacin 750 mg tablet 750 mg PO DAILY 2 Days Qty: 2 0RF metoprolol succinate [Toprol XL] 100 mg Tablet Extended Release 24 Hr 100 mg PO Q12HR Qty: 14 0RF benzonatate 100 mg Capsule 100 mg PO TID PRN (Reason: cough) Qty: 30 0RF Chloraseptic Sore Throat 6-10 mg Lozenge 1 marycruz PO PRN PRN (Reason: Sore Throat) Qty: 30 0RF Continued ascorbic acid (vitamin C) 1,000 mg tablet 1 gm PO DAILY ferrous sulfate [Feosol] 325 mg (65 mg iron) tablet 325 mg PO .QOD Xarelto 20 mg tablet 20 mg PO Q24H Januvia 50 mg tablet 50 mg PO DAILY Qty: 90 1RF (DME) Contour Next Test Strips Strip See Rx Instructions .ROUTE .MEDSUPPLY Qty: 100 2RF Rx Instructions: Use to check blood sugar daily (DME) blood-glucose meter Kit See Rx Instructions .ROUTE .MEDSUPPLY Qty: 1 0RF Rx Instructions: use to check blood sugar once a day atorvastatin 10 mg tablet 10 mg PO DAILY Qty: 90 1RF lisinopril 20 mg tablet See Rx Instructions .ROUTE .COMPLEX Qty: 90 1RF Dose Instruction: Take 1 tablet by mouth once daily Rx Instructions: Take 1 tablet by mouth once daily Held metoprolol succinate 25 mg tablet extended release 24 hr 25 mg PO BID Hold Instructions: Resume on 05/10/24. please take new dose of metoprolol until you follow up with cardiology and instructed for further direction on the dose Date of admission: 04/20/24 10:20 Primary Care Provider: Diane Holt Admitting Provider: Alvarado Rosenberg Attending physician on admission: Marcia Adan Condition: Stable Quality VTE Prophylaxis VTE prophylaxis: pharmacologic ordered Hospitalist MIPS Heart Failure (Exclusion) Patient has history of Heart Transplant or Left Ventricular Assistive Device?: No IF YES, STOP HERE Heart Failure (Qualifier) Patient has current or prior documentation of LVEF less than or equal to 40%, or mod/servere depressed LVSF?: No IF NO, STOP HERE
[2024-04-26] MEDS: levoFLOXacin 750 MG TABLET PO (15:51)
[2024-04-26 16:38] LABS: Glucose Point of Care 165 mg/dl (65-105)
[2024-04-26] MEDS: RIVAROXABAN 20 MG TABLET PO (17:48)
== END 2024-04-26 17:50 | DRG 194 ==
LOC: ANHED 13:18 → ANH3MEDSUR 15:21
PROVIDERS: Student in an Organized Health Care Education/Training Program; Admitting Provider Internal Medicine; Emergency Provider Emergency Medicine; PCP Family Medicine; Visit Provider Nurse Practitioner
DX: J10.00 Influenza due to other identified influenza virus with unspecified type of pneumonia (principal); I48.20 Chronic atrial fibrillation, unspecified; I48.92 Unspecified atrial flutter; N17.9 Acute kidney failure, unspecified; E11.22 Type 2 diabetes mellitus with diabetic chronic kidney disease; I12.9 Hypertensive chronic kidney disease with stage 1 through stage 4 chronic kidney disease, or unspecified chronic kidney disease; N18.9 Chronic kidney disease, unspecified; E86.0 Dehydration; D50.9 Iron deficiency anemia, unspecified; R26.9 Unspecified abnormalities of gait and mobility; E78.5 Hyperlipidemia, unspecified; Z79.01 Long term (current) use of anticoagulants; Z86.718 Personal history of other venous thrombosis and embolism; Z90.49 Acquired absence of other specified parts of digestive tract
CPT/HCPCS: 36415; 71045; 71046; 74176; 80053; 81001; 82948; 83605; 83690; 83735; 84100; 84145; 85025; 85027; 85610; 85730; 87040; 87045; 87070; 87205; 87427; 87449; 87493; 87637; 87641; 93005; 93306; 94667; 96361; 96365; 96367; 96375; 97110; 97161; 97166; 97530; 97535; 99212; 99285; A9270; G0378; G0463; J0456; J0696; J1940; J7030

== ENCOUNTER 2024-07-27 07:23 | Outpatient (CLI) | payer MEDICARE, SELFPAY ==
--- OUTSIDE RECORDS SUMMARY | 2024-07-27 07:32 | XMS_ITS | Data Portability ---
Author Organization [place] [facility] OFFICE Address [address] [place] [address] Care Team Providers Care Sizing End Bander Name Role Phone GRICEL JEAN BAPTISTE Primary Care Provider [phone] GRICEL JEAN BAPTISTE Referring Provider [phone] Assessment No assessment recorded. Plan of Treatment Reminders Order Date Submit Date Provider Last Modified By Organization Details Last Modified Time Details Appointments None recorded. Lab None recorded. Referral None recorded. Procedures None recorded. Surgeries None recorded. Imaging electrocar diogram 2019 [email or web address] Not available 0 17:49:24 Medication Orders aspirin 81 mg tablet,del ayed release 2019 INTERFACE [facility] [address], [place], [address], 0 17:49:31 atorvastat in 10 mg tablet 2019 INTERFACE [facility] [address], [place], [address], 0 17:49:30 quinapril 40 mg tablet 2019 INTERFACE [facility] [address] [place], [address], 0 17:49:33 Xarelto 20 mg tablet 2019 INTERFACE [facility] [address], [place], [address], 0 17:49:32 Patient TargetsNo targets recorded. Patient Instructions Encounter Date Encounter Id Patient Instructions Last Modified By Organization Details Last Modified Time 09/26/2019 [id number] type 2 diabetes: care instructions [email or web address] Not [...] cholesterol diet advised Low sodium diet advised [email or web address] Not available 09/26/2019 17:22:31 Scribed by Skye Jaimes [facility]- [email or web address] Not available 09/26/2019 17:22:25 12/03/2019 [id number] Exercise advised Low cholesterol diet advised Low sodium diet advised [email or web address] Not available 12/04/2019 14:53:56 Scribed by Skye Hinson [facility]- [email or web address] Not available 12/04/2019 14:53:43 Reason for Referral None Reported. Results Created Date Observation Date Name Description Value Unit Range Abnormal Flag Note LastModifiedBy Organization Detail LastModifiedTime 09/26/19 20 09/26/2019 elect rocar diogr am Result EKG (09/25): NSR, NSST change s Not Available Kirk Barry MD [address] [place], [place], [address], 09/26/2019 17:47:41 09/12/19 20 08/30/2019 US, echoc [...] diogr am No observ ation record ed. [email or web address] Not Available 09/27 14:31:08 Result Notes None recorded. Problems Name Problem SNOMED Code Status Onset Date Resolution Date Notes Provider Name and Address Organization Details Recorded Time Atrial flutter 7294018 Active 2019 Gerri Courtney [place], [place] - [facility] 0 16:54:43 Acute pancreatiti s 802773241 Active 2019 [place] [facility] [facility] 0 16:55:32 Essential hypertensio n 79940215 Active 2019 [place] [facility] [place] [facility] 0 16:55:47 Type 2 diabetes mellitus 69645376 Active 2019 [email or web address] 5 [facility] [place] - [facility] 0 17:40:04 Hyperlipide malick 94835244 Active 2019 [place] [facility] [place] [facility] 0 16:56:12 Deep venous thrombosis 301212309 Active 2019 VQ scan negative for PE at time of DVT Kyle Higuera [facility], [place] - [facility] 0 17:11:04 Problem Notes None recorded. Procedures Surgical History Date Name Laterality Status Provider Name and Address Organization Details Recorded Time Caesarean Section completed Gerri Harper [place] - [facility] 09/22/2019 16:48:54 Cholecystectomy completed Gerri [place] [facility] 09/22/2019 16:49:06 tonsillectomy completed Talley [facility] 09/22/2019 16:49:21 Imaging Results Imaging Date Name [...] not available 09/13/2019 11:03:25 09/26/2019 electrocardiogram completed Informa tion not available 09/28/2019 14:31:08 Procedure Notes None recorded. Medical Equipment None Reported. Allergies Allergen ID Allergen Name Allergen Category Reaction Reaction Severity Criticality Documentation Date Start Date Code Code System Note Provider Name and Address Organization Details Recorded Time 9998 Iodinated contrast media (substanc e) medicatio n Not available Not available Not available 09/22/2019 [id number] 2003 [facility] 0 16:45:28 9999 Product containin g penicilli n (product) medicatio n Not available Not available Not available 09/22/2019 78741 [facility] 16:[facility] Medications Name Sig Start Date [...] Updated DateTime 0 167.64 cm 30.2 kg/m2 48504.7 7 g 97 /min 18 /min 96 % 96 % 152 mm[Hg] 78 mm[Hg] ELIZABETH NICHOLAS [facility] 0 17:29:10 Date Recorded Body height Body temperature Respiratory rate Body mass index (BMI) Body weight Heart rate Oxygen saturation Oxygen saturation in Arterial blood by Pulse oximetry Systolic blood pressure Diastolic blood pressure Provider Name and Address Organization Details Last Updated DateTime 0 167.64 cm 98 [degF] 18 /min 30.5 kg/m2 10804.8 8 g 91 /min 97 % 97 % 140 mm[Hg] 80 mm[Hg] Barbra Artis [facility] 0 16:44:50 Social History Question Answer Notes LastModified by Organizat ion Details LastModified Time Tobacco Smoking Status Never Smoker Gerri zacarias [facility] 09/22/2019 16:51:12 What Is Your Level Of Caffeine Consumption? Occasional [email or web address] Information not available 12/03/2019 How Much Tobacco Do You Chew? None [email or web address] Information not available 12/03/2019 What Type Of Diet Are You Following? REGULAR [email or web address] Information not available 12/03/2019 Which Illicit Or Recreational Drugs Have You Used? None [email or web address] Information not available 12/03/2019 Live Alone Or With Others? With Others [email or web address] Information not available 12/03/2019 Marital Status [email or web address] Informatio n not available 12/03/2019 How Much Tobacco Do You Smoke? No Information not available 09/22/2019 General Stress Level Low [email or web address] Information not available 12/03/2019 How Many Years Have You Smoked Tobacco? 0 Information not available 09/22/2019 Sex: Unknown Functional Status Question Answer Note LastModified by Organizat ion Details LastModified Time What is your level of alcohol consumption? None Information not available 09/22/2019 Do you or have you ever used smokeless tobacco? Never used smokeless tobacco Information not available 09/22/2019 Do you or have you ever used e-cigarettes or vape? Never used electronic cigarettes Information not available 09/22/2019 What is your exercise level? Occasional [email or web address] Information not available 12/03/2019 Mental Status None recorded. Family History Relationship Description Onset Age of this Age Resolved Age Notes LastModified by Organization Details LastModified Time Mother Hypertensive disorder [email or web address] Not available 2019 16:49:52 Father Diabetes mellitus [email or web address] Not available 2019 16:50:04 Notes:Sibling : Kidney disea se , Multiple sclerosis Medical History Condition Response Atrial Fibrillation Y Diabetes Y Hyperlipidemia Y Hypertension Y Gynecological HistoryNo gynecological history recorded. Obstetrics History GPAL:G 0 P 0 0 0 0 Past Encounters Encounter ID Performer Location Encounter Start Date Encounter Closed Date Diagnosis/Indication Diagnosis SNOMED-CT Code Diagnosis ICD10 Code Diagnosis Note [id number] MD Jt Michel Office [address] [place] [address] 09/26/2019 16:44:17 09/26/2019 17:47:49 Atrial flutter 9387415 I48.92 on Xareltoin SR 09/26/2019 with PACs. Hyperlipidemia 60369584 E78.5 Needs to keep LDL less than 70, and HDL more than 40. Continue atorvastat in Will get fasting lipids for follow-up Essential hypertension 01165969 I10 Blood pressure is elevated today, but this is only one reading, will keep close follow up, and consider medication change if blood pressure is still elevated next visit. Type 2 henri betes mellitus without complication 235519808 E11.9 Treatment and evaluation by primary care doctor Discussed importance of adequate glycemic control to minimize cardiovasc ular disease progressio n, A1C goal of < 7% for type 2 DM. Deep venou s thrombosis 730183015 I82.409 on Xarelto [id number] Kirk Barry MD [place] [facility] [address] [place] [address] 12/03/2019 16:22:08 12/04/2019 10:01:24 Atrial flutter 5163880 I48.92 on XareltoRat e controlled without medication at this time in SR 09/26/2019 with PACs Hyperlipidemia 13245662 E78.5 Needs to keep LDL less than 70, and HDL more than 40. Continue atorvastat in Will get fasting lipids for follow-up Essential hypertension 87333932 I10 Controlled Type 2 henri betes mellitus without complication 683810543 E11.9 Treatment and evaluation by primary care doctor Discussed importance of adequate glycemic control to minimize cardiovasc ular disease progressio n, A1C goal of < 7% for type 2 DM. Deep venou s thrombosis 570895029 I82.409 Resolvedon Xarelto Health Concerns Section Related Observation LastModified by Organization Detai ls LastModified Time None Recorded Concern Status LastModified by Organization Details LastModified Time None Recorded Advance Directives Directive None Recorded Payers Insurance Date Sequence Insurance Name Policy Number Policy Soria Covered Member ID Soria Member ID Guarantor Name 11/30/2019 2 [place]) [id number] Tracy Krueger [id number] Tracy Krueger 11/30/2019 1 [place] Tracy Krueger [id number] Tracy Krueger Notes Date Note Type Note Provider Name and Address Organization Details Recorded Time 09/26/2019 text/html 09/26/19 CC : aflutter fu HPI: 68 years-old Female with h/o Hyperlipidemia, Hypertension and Type 2 Diabetes mellitus is [facility], was [...] EKG (09/26/19): NSR, NSST changes Kyle Higuera [facility] 09/26/2019 17:49:31 12/03/2019 text/html 12/03/2019 [...] but is otherwise asymptomatic. She was at [facility] 08/30/19 because of jaundice/abdominal pain, was [...] mild tricuspid valve regurgitation. Kirk Barry MD [address] [place], [address], [place] - [facility] 12/04/2019 14:55:55 OBGyn Episode No OBEpisode recorded.
--- OUTSIDE RECORDS SUMMARY | 2024-07-27 07:32 | XMS_ITS | Referral Summary ---
Author Organization [facility] [place] [address] [facility] [address] [place] [address] Care Team Providers Care Blind Escort Name Role Phone Cody Holt MD Primary Care Provider Encounters Date Type Department Care Team Description 05/18/2024 9:45 AM MANUAL QA TESTER Office Visit [facility] Medical Group Cardiology at [address] [place] [address] Avtar Gray MD Atrial flutter, paroxysmal (CMS/HCC) (HCC) (Primary Dx); Lipid screening 05/07/2024 Orders Only [facility] Medical [facility] Cardiology [address] [place] [address] [address] [place] [address] Michelle Payne MD from Last 3 Months Allergies Active Allergy Reactions Criticality Noted Date Comments Clindamycin Unknown 05/20/2020 Iodinated Contrast Media Unknown 05/20/2020 Penicillins Unknown 05/20/2020 Silver Nitrate Unknown 05/20/2020 Sulfa (Sulfonamide Antibiotics) Unknown 11/2020 Medications Januvia 100 mg tablet Take 25 mg by mouth daily 0 Active ferrous sulfate [...] tablet by mouth once daily 90 tablet 3 5 Active Active Problems Problem Noted Date Diagnosed Date Atrial flutter, paroxysmal (CMS/HCC) 05/20/2020 DVT (deep venous thrombosis) 05/20/2020 Hypertension associated with diabetes 05/20/2020 Mixed diabetic hyperlipidemi a associated with type 2 diabetes mellitus ([facility]) 05/20/2020 Chronic anticoagulation 05/20/2020 Palpitations 05/20/2020 Social History Tobacco Use Types Packs/Day Years Used Date Smoking Tobacco: Never Smokeless Tobacco: Never Tobacco Cessation:Counseling Given: Not Answered Comments Unknown Sex and Gender Information Value Date Recorded Sex Assigned at Not on file Legal Sex Female 11:10 AM MANUAL QA TESTER Gender Identity Female 09/02/2020 4:54 PM CDT Sexual Orientation Straight 09/02/2020 4: 54 PM CDT Last Filed Vital Signs Vital Sign Reading Time Taken Comments Blood Pressure 134/82 05/18/2024 9:37 AM MANUAL QA TESTER Pulse 83 05/18/2024 9:37 AM MANUAL QA TESTER Temperature - - Respiratory Rate - - Oxygen Saturation 96% 05/18/2024 9:37 AM MANUAL QA TESTER Inhaled Oxygen Concentration - - Weight 86.2 kg (190 lb) 05/18/2024 9:37 AM MANUAL QA TESTER Height 167.6 cm (5' 6 ) 05/18/2024 9:37 AM MANUAL QA TESTER Body Mass Index 30.67 05/18/2024 9:37 AM MANUAL QA TESTER Plan of Treatment Not on file Procedures Procedure Name Priority Date/Time Associated Diagnosis Comments POCT LIPID PANEL Routine 05/18/2024 9:33 AM MANUAL QA TESTER Lipid screening from Last 3 Months Results * POCT lipid panel (05/18/2024 9:33 AM MANUAL QA TESTER) Cholesterol, POC 153 mg/dL HDL, POC 40 mg/dL Triglycerides, POC 58 mg/dL LDL Cholesterol POC 101 mg/dL Chol/HDL Ratio, POC 3.8 Non-HDL Cholesterol, POC 113 mg/dL Cholesterol Total, POC 153 mg/dL Capillary blood 05/18/2024 9 :33 AM MANUAL QA TESTER Avtar Gray MD POINT OF CARE TEST ORDER DESHAWN Final Result from Last 3 Months Insurance MEDICARE MEDICARE [facility] MEDICARE SUPPLEMENT Care Teams Blind Escort Relationship Specialty Start Date End Date Cody Holt MD PCP - General Family Practice 03/25/20
--- OUTSIDE RECORDS SUMMARY | 2024-07-27 07:32 | XMS_ITS | Clinical Summary ---
Author Organization [facility] [place] [address] [place] [address] Care Team Providers Care Master Control Technician Name Role Phone Cody Holt MD Primary [...] Department Care Team Description 05/18/2024 9:45 AM ROLL TRUCKER Office Visit [facility] Medical Group Cardiology at [address] [place] [id number] Avtar Gray MD Atrial flutter, paroxysmal (CMS/HCC) (HCC) (Primary Dx); Lipid screening 05/07/2024 Orders Only [facility] Medical Group Cardiology [address] [facility] [address] [place] [address] Michelle Payne MD from Last 3 Months Surgical History Surgery Date Site/Laterality Comments SECTION GALLBLADDER SURGERY CHOLECYSTECTOMY Medical History Medical History Date Comments Hypertension Overweight Diabetes mellitus (HCC) Pancreatitis Atrial flutter (HCC) Family History Medical History Relation Name [...] on file Legal Sex Female 11:10 AM ROLL TRUCKER Gender Identity Female 09/02/2020 4:54 PM CDT Sexual Orientation Straight 09/02/2020 4: 54 PM CDT Obstetrics History Last Filed Vital Signs Vital Sign Reading Time Taken Comments Blood Pressure 134/82 05/18/2024 9:37 AM ROLL TRUCKER Pulse 83 05/18/2024 9:37 AM ROLL TRUCKER Temperature - - Respiratory Rate - - Oxygen Saturation 96% 05/18/2024 9:37 AM ROLL TRUCKER Inhaled Oxygen Concentration - - Weight 86.2 kg (190 lb) 05/18/2024 9:37 AM ROLL TRUCKER Height 167.6 cm (5' 6 ) 05/18/2024 9:37 AM ROLL TRUCKER Body Mass Index 30.67 05/18/2024 9:37 AM ROLL TRUCKER Plan of Treatment Health Maintenance Due Date Last Done Comments Albumin Creatinine Ratio, Urine 1949 Breast Cancer Screening-Mammogram 1949 Colon Cancer Screening-Colonoscopy 1949 Depression Screening 1949 Fall Risk Assessment 1949 Hemoglobin A1C 1949 Hepatitis C Screening 1949 Osteoporosis Screening-Bone Density Scan 1949 eGFR 1949 Dilated Eye Exam 1949 Foot Exam 1949 Hepatitis B Screening 10/28/1967 Pneumococcal vaccine 65+ (1 of 2 - PCV) 1968 Zoster Vaccine (1 of 2) 10/28/1999 Well Visit 65+ 2014 Influenza Vaccine (Season Ended) 2024 Lipid Panel 05/18/2025 05/18/2024, 03/15, 04/12/2022, Additional history exists DTaP/Tdap/Td Vaccine (2 - Td or Tdap) 12/27/2026 12/27/2016 Procedures Procedure Name Priority Date/Time Associated Diagnosis Comments POCT LIPID PANEL Routine 05/18/2024 9:33 AM ROLL TRUCKER Lipid screening from Last 3 Months Results * POCT lipid panel (05/18/2024 9:33 AM ROLL TRUCKER) Cholesterol, POC 153 mg/dL HDL, POC 40 mg/dL Triglycerides, POC 58 mg/dL LDL Cholesterol POC 101 mg/dL Chol/HDL Ratio, POC 3.8 Non-HDL Cholesterol, POC 113 mg/dL Cholesterol Total, POC 153 mg/dL Capillary blood 05/18/2024 9 :33 AM ROLL TRUCKER Avtar Gray MD POINT OF CARE TEST ORDER DESHAWN Final Result from Last 3 Months Insurance MEDICARE MEDICARE [facility] MEDICARE SUPPLEMENT Care Teams Master Control Technician Relationship Specialty Start Date End Date Cody Holt MD PCP - General Family Practice 03/25/20
[2024-07-27 07:49] LABS: Basophils Absolute Auto 0.1 K/mm3 (0.0-0.1); Basophils Percent Auto 0.5 % (0.2-1.2); Eosinophils Absolute Auto 0.5 K/mm3 (0-0.3); Eosinophils Percent Auto 4.6 % (0-4.4); Hematocrit 40.7 % (37.0-47.0); Hemoglobin 12.2 g/dL (12.0-15.0); Immature Granulocyte Absolute 0.02 K/mm3 (0.00-0.031); Immature Granulocyte Percent A 0.2 % (0-0.5); Lymphocytes Percent Auto 15.4 % (18.3-44.2); Mean Corpuscular Hemoglobin 25.7 pg (26-34); Mean Corpuscular Volume 85.9 fl (80-100); Mean Platelet Volume 9.6 fl (7.4-10.4); Monocytes Absolute Auto 0.6 K/mm3 (0.1-0.6); Monocytes Percent Auto 6.1 % (2.6-8.5); Neutrophils Absolute Auto 7.1 K/mm3 (1.3-6.7); Neutrophils Percent Auto 73.2 % (45.5-73.1); Platelet Count Result 237 k/mm3 (150-375); Red Blood Count 4.74 M/mm3 (4.2-5.4); Red Cell Distribution Width 15.8 % (11.5-14.5); White Blood Count 9.8 K/mm3 (4.5-10.0)
[2024-07-27 07:56] LABS: Alanine Aminotransferase 11 U/L (6-35); Albumin Level 4.2 g/dL (3.5-5.1); Alkaline Phosphatase 71 U/L (38-126); Anion Gap 12 mmol/L (4-12); Aspartate Amino Transferase 22 U/L (14-36); Bilirubin,Total 0.6 mg/dL (0.2-1.3); Blood Urea Nitrogen 31 mg/dL (7-17); Calcium 8.4 mg/dL (8.4-10.2); Carbon Dioxide 21 mmol/L (22-30); Chloride 109 mmol/L (98-107); Cholesterol 140 mg/dL (0-200); Estimated Glomerular Filt Rate 35; Glucose 99 mg/dL (65-110); HDL Direct 40 mg/dL; Sodium 142 mmol/L (137-145); Triglycerides 119 mg/dL (<150)
[2024-07-27 08:08] LABS: LDL Cholesterol Direct 62 mg/dL
[2024-07-27 17:14] LABS: Creatinine Urine 160.7 mg/dL
[2024-07-27 17:35] LABS: MALB Creatinine Ratio 299.6 mg/g (0-30); Microalbumin Urine Random 481.5 mg/L (0-16.7)
== END 2024-07-27 07:24 | disposition home or self-care (01) ==
PROVIDERS: PCP Nurse Practitioner Family; Visit Provider Nurse Practitioner Family
DX: E78.5 Hyperlipidemia, unspecified (principal); E11.9 Type 2 diabetes mellitus without complications; I10 Essential (primary) hypertension
CPT/HCPCS: 36415; 80053; 80061; 82043; 83036; 85025

== ENCOUNTER 2025-01-12 08:18 | Outpatient (CLI) | payer MEDICARE, SELFPAY ==
[2025-01-12 08:59] LABS: Hematocrit 40.9 % (37.0-47.0); Hemoglobin 12.6 g/dL (12.0-15.0); Immature Granulocyte Percent A 0.4 % (0-0.5); Lymphocytes Absolute Auto 1.74 K/mm3 (0.9-3.2); Mean Corpuscular HGB Conc 30.8 g/dl (32-36); Mean Corpuscular Hemoglobin 25.9 pg (26-34); Mean Corpuscular Volume 84.2 fl (80-100); Nucleated Red Blood Cells Absolute Auto 0.000 K/mm3 (0.0-0.012); Nucleated Red Blood Cells Perc 0.0 % (0.0-0.2); Platelet Count Result 260 k/mm3 (150-375); Red Blood Count 4.86 M/mm3 (4.2-5.4); White Blood Count 10.1 K/mm3 (4.5-10.0)
[2025-01-12 09:13] LABS: Alanine Aminotransferase 11 U/L (6-35); Albumin Level 4.3 g/dL (3.5-5.1); Alkaline Phosphatase 75 U/L (38-126); Anion Gap 11 mmol/L (4-12); Aspartate Amino Transferase 20 U/L (14-36); Bilirubin,Total 0.8 mg/dL (0.2-1.3); Blood Urea Nitrogen 22 mg/dL (7-17); Calcium 8.6 mg/dL (8.4-10.2); Carbon Dioxide 24 mmol/L (22-30); Chloride 105 mmol/L (98-107); Cholesterol 159 mg/dL (0-200); Estimated Glomerular Filt Rate 57; Glucose 109 mg/dL (65-110); HDL Direct 37 mg/dL; Potassium 3.7 mmol/L (3.4-5.0); Sodium 140 mmol/L (137-145); Total Protein 8.2 g/dL (6.3-8.2); Triglycerides 119 mg/dL (<150)
[2025-01-12 09:25] LABS: Hemoglobin A1C 5.1 % (<5.7)
[2025-01-12 10:00] LABS: Thyroid Stimulating Hormone Reflex 1.560 uIU/mL (0.465-4.68)
== END 2025-01-12 08:19 | disposition home or self-care (01) ==
LOC: ANHLAB 08:19
PROVIDERS: PCP Family Medicine; Visit Provider Nurse Practitioner Family
DX: E78.5 Hyperlipidemia, unspecified (principal); I10 Essential (primary) hypertension; E11.9 Type 2 diabetes mellitus without complications; E55.9 Vitamin D deficiency, unspecified
CPT/HCPCS: 36415; 80053; 80061; 82306; 83036; 84443; 85025